=== PATIENT | female | born 1975 | race Caucasian/White ===

== ENCOUNTER → 2017-10-15 07:00 | Outpatient (CLI) | payer OTHER, SELFPAY ==
--- NOTE | 2017-10-15 07:05 | RAD_ITS ---
STUDY: X-RAY CHEST REASON FOR EXAM: Female, 42 years old. Cough TECHNIQUE: Frontal and lateral views of the chest. COMPARISON: None. FINDINGS: The lungs are clear and expanded. There is no demonstrated pleural abnormality. Normal size heart. Normal mediastinum and erica. Normal visualized pulmonary arteries. Normal visualized aortic arch and descending thoracic aorta. Normal visualized thoracic spine. Normal visualized ribs, clavicles, and shoulders. There is no demonstrated abnormality of the visualized soft tissue structures of the upper abdomen. RAD/Chest PA and Lateral IMPRESSION: Normal x-ray examination of the chest. Electronically Signed: Tari Murillo MD at 7:24 EDT Tel , Service support ,
== END ==
PROVIDERS: Family Provider Family Medicine; PCP Family Medicine; Visit Provider Physician Assistant Surgical
DX: R06.02 Shortness of breath (principal); R06.00 Dyspnea, unspecified; R09.89 Other specified symptoms and signs involving the circulatory and respiratory systems
CPT/HCPCS: 71046

== ENCOUNTER → 2017-12-17 14:28 | Outpatient (CLI) | payer OTHER, SELFPAY ==
--- NOTE | 2017-12-17 14:33 | CT_ITS ---
STUDY: CT MAXILLOFACIAL SINUSES REASON FOR EXAM: Female, 42 years old. Vertigo. Headache RADIATION DOSAGE (If Supplied By Facility): CTDIvol = ( 29.38 ) mGy, DLP = ( 532.76 ) mGycm TECHNIQUE: The patient was scanned in a multi detector CT scanner. High resolution axial imaging was performed without the administration of intravenous contrast material. Sagittal and coronal images were reconstructed. Individualized dose optimization techniques were used for this CT. COMPARISON: None. FINDINGS: FRONTAL SINUSES: Normal aeration, without mucosal inflammatory disease. ETHMOIDAL SINUSES: Normal aeration, without mucosal inflammatory disease. MAXILLARY SINUSES: Normal aeration, without mucosal inflammatory disease. SPHENOIDAL SINUSES: Normal aeration, without mucosal inflammatory disease. There is patency of the bilateral maxillary infundibuli with normal uncinate processes, ethmoid bullae, and hiatus semilunaris. Normal bilateral middle turbinates. There is hypertrophy of the bilateral inferior nasal turbinates. There is a right sided nasal septal deviation. The visualized osseous structures are normal. The visualized bilateral orbital contents are normal. There is no middle ear or mastoid opacification. CT/Sinus/Facial Bone IMPRESSION: The paranasal sinuses are clear and patent drainage pathways. Nasal septal deviation. Mucosal hypertrophy of the turbinates narrowing the nasal air passageway. Electronically Signed: Jerad Huston MD at 17:22 EDT , Service support ,
--- NOTE | 2017-12-17 14:33 | CT_ITS ---
STUDY: CT BRAIN WITHOUT CONTRAST REASON FOR EXAM: Female, 42 years old. Vertigo. Headache. RADIATION DOSAGE (If Supplied By Facility): CTDIvol = ( 44.99 ) mGy, DLP = ( 711.75 ) mGycm TECHNIQUE: Transaxial CT imaging of the brain was performed without administration of intravenous contrast material. Individualized dose optimization techniques were used for this CT. COMPARISON: None. FINDINGS: Normal soft tissue structures. Normal calvarium. Normal size ventricles and extra-axial spaces for the patient's age. Normal white matter tracts of the cerebral hemispheres. Normal basal ganglia and thalami. Normal brainstem. Normal cerebellum. There is no intracranial hemorrhage. There are no findings of an acute ischemic infarction. Normal visualized paranasal sinuses. CT/Brain/Head without Contrast IMPRESSION: Normal unenhanced CT scan of the brain. Electronically Signed: Jerad Huston MD at 17:17 EDT , Service support ,
== END ==
PROVIDERS: Family Provider Family Medicine; PCP Family Medicine; Visit Provider Family Medicine
DX: R42 Dizziness and giddiness (principal); H93.19 Tinnitus, unspecified ear
CPT/HCPCS: 70450; 70486

== ENCOUNTER 2018-02-23 09:42 | Emergency (ER) | payer OTHER, SELFPAY ==
[2018-02-23 09:43] VITALS: BP 163/110; PULSE 91; RESP 18; TEMP 36.4; O2SAT 99; BMI 33.5
--- NOTE | 2018-02-23 10:08 | RAD_ITS ---
STUDY: X-RAY - CERVICAL SPINE REASON FOR EXAM: Female, 43 years old. C6-7 RADICULAR PAIN RIGHT. 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 COMPARISON: None FINDINGS: Normal anterior atlantoaxial articulation. Normal odontoid process. Normal cervical lordosis. Normal vertebral bodies and endplates. There is multi-level degenerative disc disease with multilevel disc space narrowing. Normal visualized intervertebral neuroforamina. The soft tissue structures are unremarkable. RAD/Cerv Spine 4 or 5 Views IMPRESSION: There is multi-level degenerative disc disease with multilevel disc space narrowing. Electronically Signed: Tari Murillo MD at 11:48 EDT Tel , Service support ,
--- NOTE | 2018-02-23 10:13 | ED.DCSUM_ITS ---
- ER Visit Summary Date of Service: 02/23/18 Chief Complaint: Right shoulder/scapular pain since December History of Present Illness: The patient is a 43 F who is right-handed presents with right shoulder/scapular pain with radiation to the arm, forearm and fingers. 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 There is no history of direct trauma. She reports weakness. She states the pain was worse yesterday. She took 600 mg ibuprofen ?2 without any effect. She was seen at the [place] urgent care. Note was read. Thought was thoracic myofascial strain. She states the exercises she was told to do have no effect. Patient distribution of pain is in the C6-7 nerve root/dermatome. She denies any cardiac respiratory symptoms. Certain movements exacerbate the discomfort. She denies any neck pain. She denies headache. She denies any visual, ocular auditory symptoms. I trouble speech or swallowing. Physical Examination: Blood pressure is elevated at 163/110. She appears uncomfortable. She states the pain is a 5. Her right upper extremity is abductor to 90? and externally rotated. She states this diminishes her pain. Apparently, having her arm dangle at her side causes increased discomfort. HEENT exam is unremarkable. There is no cervical spine tenderness. Axillary, median, radial and ulnar function intact. Biceps, brachialis and triceps reflex are 2+ and symmetric. Radial pulses 2+ and symmetric. Having her extend at the elbow against resistance causes increased pain. Having her flex at the elbow causes increased pain. There is no decreased strength with shrugging of her shoulders. Test Results: 5 view x-ray of the cervical spine was obtained and interpreted by me. There is degenerative changes noted. There is narrowing at C5-6 C4-5 and question of irregularity C6-7 right foramen. Emergency Department Course and Treatment: IV was established she was medicated with 4 mg of Zofran, 4 mrem of morphine and 30 minutes Toradol IV push. Because the pain radiates in a C6-7 dermatomal distribution x-rays of the C- spine were obtained. Treatment Plan: Patient was reassessed at 1131. Her pain has diminished markedly from a 5 6 to a 1. She is no longer tearful. She was made aware of her x-ray results and treatment plan. She was given a prescription for anti- inflammatory and opiate analgesia. She was referred to Dr. Sigifredo Esquivel her PCP for physical therapy and if no improvement palpable MRI Disposition: Discharged in stable and improved condition Impression: Pain right upper extremity secondary to cervical radiculopathy C6-7 distribution This note was generated with [employer] dictation software. It may contain incorrect words, spelling, and punctuation that were not noted in review of the chart prior to signing ED Disposition - Plan for ED Patient: Disposition: Home or Assisted Living Chief Complaint: Upper Extremity Injury Instructions: ED Cervical Radiculopathy Prescriptions: Oxycodone HCl/Acetaminophen [Percocet 5/325] 1 tablet PO Q6H PRN PRN 5 Days #20 tablet PRN Reason: Radicular pain Naproxen [Naprosyn] 500 mg PO BID PRN #20 tab Referrals: Sigifredo Esquivel MD [Primary Care Provider] - 2 Days
[2018-02-23] MEDS: Morphine 4 MG/ML Syringe IV (10:30)
[2018-02-23] MEDS: Ondansetron 4 MG/2 ML Vial IV (10:30)
[2018-02-23] MEDS: Ketorolac 30 MG/ML Syringe IV (10:30)
[2018-02-23 11:58] VITALS: BP 128/76; PULSE 64; RESP 15
== END 2018-02-23 12:13 | disposition home or self-care (01) ==
PROVIDERS: Emergency Provider Emergency Medicine; Family Provider Family Medicine; PCP Family Medicine
DX: M54.12 Radiculopathy, cervical region (principal); E03.9 Hypothyroidism, unspecified; R03.0 Elevated blood-pressure reading, without diagnosis of hypertension; E66.9 Obesity, unspecified; Z79.899 Other long term (current) drug therapy
CPT/HCPCS: 72050; 96374; 96375; 99283; A4216; J2405

== ENCOUNTER → 2018-03-17 07:20 | Outpatient (CLI) | payer OTHER, SELFPAY ==
[2018-03-17 09:52] LABS: Hemoglobin A1c 5.3 % (4.2-6.3)
[2018-03-17 09:57] LABS: AST(SGOT) 14 U/L (15-37); Alanine Aminotransfer ALT/SGPT 20 U/L (13-56); Albumin, Serum 3.8 g/dL (3.2-5.0); Alkaline Phosphatase 65 U/L (45-117); Anion Gap 5 (5-15); BUN 21 mg/dL (7-18); BUN/Creat Ratio 23.6 RATIO (10-20); Chloride 106 mmol/L (98-107); Cholesterol 143 mg/dL (200); Creatinine, Serum 0.89 mg/dL (0.55-1.02); EST Glomerular Filtration Rate 73 mL/min (>60); Est Glom Filt Rate - Afr Amer 88 mL/min (>60); Glucose 84 mg/dL (74-106); High Density Lipoprotein 56 mg/dL; Potassium 3.8 mmol/L (3.5-5.1); Protein, Total 7.8 g/dL (6.4-8.2); Sodium Level 142 mmol/L (136-145); Thyroid Stim Hormone (TSH) 2.55 uIU/mL (0.358-3.74); Triglycerides 108 mg/dL; Very Low Density Lipoprotein 22 mg/dL (5-40)
== END ==
PROVIDERS: Family Provider Family Medicine; PCP Family Medicine; Visit Provider Family Medicine
DX: M54.12 Radiculopathy, cervical region (principal); Z00.00 Encounter for general adult medical examination without abnormal findings
CPT/HCPCS: 36415; 72141; 80053; 80061; 83036; 84443

== ENCOUNTER 2018-03-26 16:30 | Outpatient (RCR) | payer OTHER, SELFPAY ==
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
--- NOTE | 2018-03-26 17:14 | HP.PTDCSUM_ITS ---
HP - PT D/C Summary It has been my pleasure to treat PAO PANG under orders from Sigifredo Esquivel, for the diagnosis of CERVICALGIA AND CERVICAL RADICULOPATHY. for a total of 10 visit(s). Discharge Date: Please see the following information for a summary of their discharge status. - Subjective Subjective: APPOINTMENT WITH DR. JERSON MACKENZIE. PATIENT REPORTS HER RIGHT ARM PAIN IS A LITTLE BETTER BUT HER HER RIGHT SHOULDER BLADE PAIN IS STILL MODERATE TO SEVERE. UNALBE TO SIT AT WORK TODAY. HAD TO SIT 10 MIN TO WORK AND ABOUT 10 MIN IN THE CAR TO GET TO PT TODAY AND IT STILL CAUSES A LOT OF PAIN. NO SITTING AT WORK TODAY. AVOIDS SITTING AT ALL COSTS. EVEN HAD TO STAND WHEN WENT OUT TO EAT BECAUSE OF THE PAIN INCREASE WITH SITTING. - Pain R arm Pain Intensity (Out of 10): 5 - Overall Improvement % Improvement: 50 - Objective Objective/Function: PATIENT CONTNUES TO HAVE SIGNIFICANT REPORTS OF PAIN IN HER NECK AND RIGHT UE INCLUDING THE SHOULDER BLADE. SHE ALSO HAS SIGNIFICANT DECREASED NECK ROM AND INCREASING RIGHT UE WEAKNESS (EXCEPT CHILD PROTECTIVE INVESTIGATOR) ALONG WITH INABILITY TO TOLERATE SITTING. UPON EXAM: Sitting Posture/Standing Posture: POOR. PATIENT AVOIDS SITTING IN CLINIC. FORWARD HEAD AND ROUNDED SHOULDERS. Other Observations: PATIENT REPORTS ALMOST IMMEDIATE SUBSTANTIAL OR FULL RELIEF FROM PAIN UPON LYING WITH OR WITHOUT TRACTION. Motor deficit: RIGHT HANDED. RIGHT CHILD PROTECTIVE INVESTIGATOR 65 LBS. LEFT 75 LBS. LEFT UE 5/5. RIGHT UE 4/5 WITH MMT'ING AND TESTING FLARES UP RIGHT UE SX'S. Sensory deficit: JOVAN UE LIGHT TOUCH SENSATION INTACT AND SYMMETRICAL. ROM deficit: JOVAN UE'S WFL. Reflexes: JOVAN UE' S 2/3. Dural Signs: POSITIVE RIGHT UE. Cervical Mvmt Loss: Flex: MIN - INCREASES RIGHT SHOULDER BLADE PAIN AND NECK IS TIGHT. Pro: NIL. Ext: MOD TO FAM AND INCREASES RIGHT UE PAIN. Ret: MOD. RSB: MIN. LSB: MIN. R Rot: MIN - PROVOKES RIGHT SHOULDER BLADE PAIN. L Rot: MIN - PROVOKES LEFT SHOULDER BLADE PAIN AND IT IS UNUSUAL FOR PATIENT TO HAVE LEFT SHOULDER BLADE PAIN. Postural strength: POOR. OTHER: PATIENT CONTINUES TO APPEAR TO BE IN A LOT OF PAIN UNLESS SUPINE LYING ESPECIALLY AFTER RIGHT UE STRENGTH TESTING EVEN THOUGH I PROCEEDED CAREULLY. NECK OSWESTRY HAS ONLY DECREASED TO 17 FROM 20. - Goals Goal 1:: DECREASE C/O RIGHT UE PAIN Goal 2:: IMPROVE SITTING, STANDING, WALKING, ADL, WORK AND SLEEP FUNCTION Goal 3:: INSTRUCT IN PROPHYLAXIS - Plan Plan: PATIENT IS APPROPRIATE FOR DISCHARGE DUE CONTINUING SIGNIFICANT SX'S. CONSULT WITH SURGEON (DR. JERSON MACKENZIE) PENDING TOMORROW AND TRIP TO [facility] COMING SOON. - D/C Information If there are questions or concerns regarding this patient's physical therapy, please feel free to call me at [phone]. Thank you for the referral of this patient. Sincerely, Lu Murray
== END 2018-03-26 17:28 | disposition home or self-care (01) ==
LOC: PT 16:30
PROVIDERS: Family Provider Family Medicine; PCP Family Medicine; Visit Provider Family Medicine
DX: M54.2 Cervicalgia (principal); M54.12 Radiculopathy, cervical region
CPT/HCPCS: 97012; 97035; 97110; 97140; 97162; 97164; 97530

== ENCOUNTER → 2018-04-23 08:06 | Outpatient (CLI) | payer OTHER, SELFPAY ==
[2018-04-28 11:10] LABS: HPV Reflexed? NOT INDICATED
== END ==
PROVIDERS: Family Provider Family Medicine; PCP Family Medicine; Visit Provider Obstetrics & Gynecology
DX: Z12.4 Encounter for screening for malignant neoplasm of cervix (principal)
CPT/HCPCS: 88175; G0145

== ENCOUNTER 2018-04-26 19:53 | Emergency (ER) | payer OTHER, SELFPAY ==
[2018-04-26 19:54] VITALS: BP 147/106; PULSE 85; RESP 26; TEMP 36.8; O2SAT 99; BMI 34.3
--- NOTE | 2018-04-26 20:00 | EKG12_ITS ---
Test Reason : CHEST PAIN Blood Pressure : / mmHG Vent. Rate : 076 BPM Atrial Rate : 076 BPM P-R Int : 138 ms QRS Dur : 074 ms QT Int : 384 ms P-R-T Axes : 028 006 013 degrees QTc Int : 432 ms Normal sinus rhythm with sinus arrhythmia Normal ECG Confirmed by NICHOLAS SHARP, CHRISTIANO ([id number]), research editor WAYNE MACKENZIE ([id number]) on 04/30/2018 8:53:18 AM Referred By: Veronica Chan Confirmed By:CHRISTIANO PETERSON MD
--- NOTE | 2018-04-26 20:03 | ED.RN ---
NO OLD EKGS IN MUSE
[2018-04-26 20:10] LABS: Absolute Lymphocyte Count 3.16 X10^3/ul (0.83-4.51); Absolute Neutrophil Count 6.6 X10^3/uL (2.0-7.7); Basophil# 0.03 X10^3/uL; Basophil% 0.3 % (0-1); Eosinophils% 0.9 % (0-5); Hematocrit 40.3 % (37-47); Lymphocyte # 3.16 X10^3/ul (4.0); Lymphocyte % 29.3 % (19-41); Mean Corp Hgb Conc 32.3 g/gl (32-36); Mean Corpuscular Hgb 29.1 pg (27.0-32.0); Mean Corpuscular Volume 90.2 fL (81-99); Mean Platelet Vol. 9.1 fl (6.2-12.0); Monocyte# 0.84 X10^3/uL; Monocyte% 7.8 % (0-10); Neutrophil # 6.64 X10^3/uL (2.7-7.7); Neutrophil % 61.7 % (47-70); POSITIVE COUNT NO; POSITIVE DIFFERENTIAL NO; POSITIVE MORPHOLOGY NO; Platelet Count 228 K/mm3 (150-450); RBC Distribution Width CV 13.5 % (11.6-14.6); RBC Distribution Width SD 44.5 fl (35.1-43.9); Red Blood Count 4.47 M/mm3 (4.2-5.4); White Blood Count 10.8 K/mm3 (4.4-11.0)
--- NOTE | 2018-04-26 20:11 | RAD_ITS ---
STUDY: X-RAY CHEST REASON FOR EXAM: Female, 43 years old. Recent surgery. Now having chest pain and shortness of breath. TECHNIQUE: Single frontal view of the chest. COMPARISON: October 15, 2017 FINDINGS: The lungs are clear and expanded. There is no demonstrated pleural abnormality. Normal size heart. Normal mediastinum and erica. Normal visualized pulmonary arteries. Normal visualized aortic arch and descending thoracic aorta. Normal visualized thoracic spine. Normal visualized ribs, clavicles, and shoulders. Post surgical changes of the lower cervical spine are noted. RAD/Chest 1 View (Portable) IMPRESSION: No significant interval change and no acute pathology. Electronically Signed: Speedy Hdez MD at 20:32 EDT , Service support ,
[2018-04-26 20:27] LABS: Anion Gap 7 (5-15); BUN 20 mg/dL (7-18); BUN/Creat Ratio 20.8 RATIO (10-20); Calcium,Total 8.8 mg/dL (8.5-10.1); Chloride 102 mmol/L (98-107); Creatinine, Serum 0.96 mg/dL (0.55-1.02); EST Glomerular Filtration Rate 67 mL/min (>60); Est Glom Filt Rate - Afr Amer 81 mL/min (>60); Glucose 114 mg/dL (74-106); Potassium 3.5 mmol/L (3.5-5.1); Sodium Level 139 mmol/L (136-145)
[2018-04-26 20:38] LABS: D-Dimer Quantitative (DVT/PE) 6.28 FEU/ug/m (0.27-0.49)
--- NOTE | 2018-04-26 20:38 | ED.RN ---
D-DIMER 6.28 DR NOTIFIED
[2018-04-26 21:00] VITALS: BP 131/83; PULSE 75; RESP 17; O2SAT 96
--- NOTE | 2018-04-26 21:38 | CT_ITS ---
STUDY: CTA CHEST REASON FOR EXAM: Female, 43 years old. Chest pain and shortness of breath following neck surgery. RADIATION DOSAGE (If Supplied By Facility): CTDIvol = ( 14.59 ) mGy, DLP = ( 649.58 ) mGycm TECHNIQUE: The examination was performed with the intravenous administration of 100 ml of Isovue 370 contrast material. Post-processing of the angiographic images was performed, with multiplanar reformation and 3D reconstruction. Individualized dose optimization techniques were used for this CT. COMPARISON: Portable chest x-ray of April 26, 2018 FINDINGS: 80 Positive for 1 moderately small pulmonary embolus in a segmental branch to the anterior right upper lobe extending into 2 subsegmental branches. 1 moderate sized peripheral pulmonary embolus in a segmental branch of the superior segment of the right lower lobe extending into subsegmental branches. Normal thoracic aorta and visualized great vessels. There is no demonstrated aortic dissection. Normal heart and pericardium. Normal mediastinum. Normal hilar regions. Normal visualized trachea and bronchi. Moderate bibasilar atelectatic changes. Negative for pleural effusion. Normal chest wall structures. There are degenerative changes of thoracic spine. Normal visualized upper abdomen. CT/CTA Chest W/WO Contrast IMPRESSION: 2 moderate size peripheral pulmonary emboli in a segmental and subsegmental branches of the anterior right upper lobe and the superior segment right lower lobe. Mild elongation of the thoracic aorta without aneurysm or dissection. Negative for coronary calcifications. Mild to moderate bibasilar linear type atelectatic changes. N.B. : The above information has been verbally conveyed by Jasmine Frederick MD to Benjamin Rodriguez MD, on 04/26/2018 23:15:52 (ET). Electronically Signed: Jasmine Frederick MD at 23:10 EDT , Service support ,
[2018-04-26 22:28] VITALS: BP 136/89; PULSE 68; RESP 17; O2SAT 97
[2018-04-26 23:26] VITALS: BP 125/85; PULSE 60; RESP 15; O2SAT 96
--- NOTE | 2018-04-26 23:58 | ED.VISSUMM ---
- ER Visit Summary Date of Service: 04/26/18 Chief Complaint: Chest pain shortness of breath History of Present Illness: The patient is a 43 F who had surgery 3 days ago, C6-C7 fusion. She is presenting with calf pain bilaterally as well as chest pain and shortness of breath. No fever chills no cough. Physical Examination: Not appear in acute distress. Moist mucous membranes, no obvious facial deformity Patient has a neck collar and wound is bandaged, did not unwrap it. Regular rate and rhythm without any obvious murmurs Clear lungs bilaterally speaking in full sentences without any obvious respiratory distress Abdomen soft and nontender no guarding or rebound Moves all extremities without any difficulty or pain. She has calf pain but no edema Skin does not show any obvious rashes or lesions, no trauma. Alert oriented ?3 with no gross focal deficit Emergency Department Course and Treatment: Patient was found to have pulmonary emboli, this was peripheral, 2 small emboli. Patient has a normal heart rate, she has no medical problems. She is low risk for adverse side effects and meets criteria for outpatient treatment for PE. I gave her Eliquis in the emergency department and I will give her a 30 day trial for home as well as some prescription and she will follow-up with her PCP. He understands that if her symptoms worsen, she needs to return to the emergency department. Disposition: Discharge in stable condition Impression: Pulmonary emboli This note was generated with [employer] dictation software. It may contain incorrect words, spelling, and punctuation that were not noted in review of the chart prior to signing ED Disposition - Plan for ED Patient: Disposition: Home or Assisted Living Chief Complaint: Chest Pain Instructions: Pulmonary Embolism, Discharge Instructions for Pulmonary Embolism Prescriptions: Apixaban [Eliquis] 5 mg PO BID #60 tab Referrals: Sigifredo Esquivel MD [Primary Care Provider] - 3-5 Days
--- NOTE | 2018-04-27 00:03 | ED.DCSUM_ITS ---
- ER Visit Summary Date of Service: 04/26/18 Chief Complaint: Chest pain shortness of breath History of Present Illness: The patient is a 43 F who had surgery 3 days ago, C6 -C7 fusion. She is presenting with calf pain bilaterally as well as chest pain and shortness of breath. No fever chills no cough. Physical Examination: Not appear in acute distress. Moist mucous membranes, no obvious facial deformity Patient has a neck collar and wound is bandaged, did not unwrap it. Regular rate and rhythm without any obvious murmurs Clear lungs bilaterally speaking in full sentences without any obvious respiratory distress Abdomen soft and nontender no guarding or rebound Moves all extremities without any difficulty or pain. She has calf pain but no edema Skin does not show any obvious rashes or lesions, no trauma. Alert oriented ?3 with no gross focal deficit Emergency Department Course and Treatment: Patient was found to have pulmonary emboli, this was peripheral, 2 small emboli. Patient has a normal heart rate, she has no medical problems. She is low risk for adverse side effects and meets criteria for outpatient treatment for PE. I gave her Eliquis in the emergency department and I will give her a 30 day trial for home as well as some prescription and she will follow-up with her PCP. He understands that if her symptoms worsen, she needs to return to the emergency department. Disposition: Discharge in stable condition Impression: Pulmonary emboli This note was generated with [employer] dictation software. It may contain incorrect words, spelling, and punctuation that were not noted in review of the chart prior to signing ED Disposition - Plan for ED Patient: Disposition: Home or Assisted Living Chief Complaint: Chest Pain Instructions: Pulmonary Embolism, Discharge Instructions for Pulmonary Embolism Prescriptions: Apixaban [Eliquis] 5 mg PO BID #60 tab Referrals: Sigifredo Esquivel MD [Primary Care Provider] - 3-5 Days
[2018-04-27] MEDS: APIXABAN 5 MG TABLET PO (00:15)
[2018-04-27 00:23] VITALS: BP 130/85; PULSE 67; RESP 16; O2SAT 96
== END 2018-04-27 00:24 | disposition home or self-care (01) ==
PROVIDERS: Emergency Provider Emergency Medicine; Family Provider Family Medicine; PCP Family Medicine
DX: I26.99 Other pulmonary embolism without acute cor pulmonale (principal); M79.662 Pain in left lower leg; M79.661 Pain in right lower leg; Z79.01 Long term (current) use of anticoagulants; Z79.899 Other long term (current) drug therapy
CPT/HCPCS: 71045; 71275; 80048; 84484; 85025; 85379; 85610; 93005; 99285; Q9967; A4216

== ENCOUNTER 2018-04-27 16:11 | Emergency (ER) | payer OTHER, SELFPAY ==
[2018-04-27 16:12] VITALS: BP 131/92; PULSE 90; RESP 20; TEMP 36.6; O2SAT 98; BMI 34.3
--- NOTE | 2018-04-27 16:32 | EKG12_ITS ---
Test Reason : CHEST PAIN Blood Pressure : / mmHG Vent. Rate : 084 BPM Atrial Rate : 084 BPM P-R Int : 136 ms QRS Dur : 074 ms QT Int : 372 ms P-R-T Axes : 046 017 023 degrees QTc Int : 439 ms Normal sinus rhythm Normal ECG Confirmed by NICHOLAS SHARP, CHRISTIANO ([id number]), newspaper managing editor WAYNE MACKENZIE ([id number]) on 05/02/2018 1:28:05 PM Referred By: Veronica Chan Confirmed By:CHRISTIANO PETERSON MD
[2018-04-27 16:53] LABS: Absolute Lymphocyte Count 1.98 X10^3/ul (0.83-4.51); Absolute Neutrophil Count 8.9 X10^3/uL (2.0-7.7); Basophil# 0.03 X10^3/uL; Basophil% 0.3 % (0-1); Eosinophil# 0.13 X10^3/uL; Eosinophils% 1.1 % (0-5); Hematocrit 42.7 % (37-47); Hemoglobin 13.9 g/dl (12.0-15.0); Lymphocyte # 1.98 X10^3/ul (4.0); Lymphocyte % 16.7 % (19-41); Mean Corp Hgb Conc 32.6 g/gl (32-36); Mean Corpuscular Hgb 29.2 pg (27.0-32.0); Mean Corpuscular Volume 89.7 fL (81-99); Mean Platelet Vol. 9.3 fl (6.2-12.0); Monocyte# 0.84 X10^3/uL; Monocyte% 7.1 % (0-10); Neutrophil # 8.88 X10^3/uL (2.7-7.7); Neutrophil % 74.5 % (47-70); POSITIVE COUNT NO; POSITIVE DIFFERENTIAL NO; POSITIVE MORPHOLOGY NO; Platelet Count 229 K/mm3 (150-450); RBC Distribution Width CV 13.4 % (11.6-14.6); RBC Distribution Width SD 44.1 fl (35.1-43.9); Red Blood Count 4.76 M/mm3 (4.2-5.4); White Blood Count 11.9 K/mm3 (4.4-11.0)
[2018-04-27 16:56] VITALS: O2SAT 96
[2018-04-27 16:58] LABS: International Normalized Ratio 1.1; Prothrombin Time (Protime)PT. 13.8 SECONDS (11.7-14.9)
--- NOTE | 2018-04-27 17:00 | RAD_ITS ---
STUDY: X-RAY CHEST REASON FOR EXAM: Female, 43 years old. Chest pain TECHNIQUE: Frontal view of the chest COMPARISON: 04/26/2018 FINDINGS: The lungs are clear. There are no pleural effusions. There is no pneumothorax. The heart is normal in size. The visualized osseous structures are within normal limits. RAD/Chest 1 View (Portable) IMPRESSION: No acute thoracic pathology. Electronically Signed: Aayn Riddle, at 17:47 EDT Tel , Service support ,
--- NOTE | 2018-04-27 17:06 | ED.RN ---
PT URINE KETONES 150. DR. LOCO GOVEA.
[2018-04-27 17:11] VITALS: BP 123/80; PULSE 85; RESP 20; O2SAT 97
[2018-04-27 17:12] LABS: Anion Gap 7 (5-15); BUN 17 mg/dL (7-18); BUN/Creat Ratio 16.8 RATIO (10-20); Calcium,Total 9.2 mg/dL (8.5-10.1); Chloride 100 mmol/L (98-107); Creatinine, Serum 1.01 mg/dL (0.55-1.02); EST Glomerular Filtration Rate 63 mL/min (>60); Est Glom Filt Rate - Afr Amer 76 mL/min (>60); Estimated Creatinine Clearance 60.74 ml/min; Glucose 98 mg/dL (74-106); Sodium Level 137 mmol/L (136-145)
--- NOTE | 2018-04-27 17:45 | NURSING ---
CALLED [facility] FOR TRANSFER. HAD TO LEAVE A MESSAGE
--- NOTE | 2018-04-27 17:53 | NURSING ---
AMANDA FORBES, CALLED BACK
[2018-04-27] MEDS: Morphine 4 MG/ML Syringe IV ×2 (17:54→18:37)
[2018-04-27] MEDS: Ondansetron 4 MG/2 ML Vial IV (17:55)
[2018-04-27 18:00] VITALS: BP 131/87; PULSE 76; RESP 18; O2SAT 98
--- NOTE | 2018-04-27 18:19 | NURSING ---
DR ROGERS FOR DR LOPEZ
--- NOTE | 2018-04-27 18:25 | ED.VISSUMM ---
- ER Visit Summary Date of Service: 04/27/18 Chief Complaint: Chest pain History of Present Illness: The patient is a 43 F who presents with chest pain. This is been present for 2 days. She had a cervical fusion on April 23 at [facility]. She was seen last night for left-sided chest pain and bilateral calf pain and was diagnosed with peripheral pulmonary emboli. She was felt to be a good candidate for outpatient treatment and started on Eliquis. Over the last 12 hours she complains of worsening pain worsening short of breath. She currently rates her pain as severe in the left side of the chest. Physical Examination: Afebrile vitals are stable Moist mucous membranes Heart regular rate and rhythm Lungs are clear Abdomen soft Bilateral calf tenderness but no edema no erythema she has palpable dorsalis pedis pulses brisk capillary refill and sensation is intact to light touch Test Results: EKG shows sinus rhythm at a rate of 84. Labs are notable for white blood cell count of 11.9. INR normal. Troponin negative. Chest x-ray shows no acute process. Emergency Department Course and Treatment: Patient was treated with morphine and Zofran for symptomatic control. Given worsening symptoms I do feel she should be admitted. Given her recent cervical surgery I spoke to [facility] who accepted the patient for transfer. Treatment Plan: [] Disposition: Transfer Impression: Pulmonary embolism This note was generated with Flipzu dictation software. It may contain incorrect words, spelling, and punctuation that were not noted in review of the chart prior to signing ED Disposition - Plan for ED Patient: Chief Complaint: Chest Pain Referrals: Sigifredo Esquivel MD [Primary Care Provider] -
[2018-04-27] MEDS: APIXABAN 5 MG TABLET 10 MG PO (18:38)
[2018-04-27 18:51] VITALS: BP 134/77; PULSE 72; RESP 12; O2SAT 97
--- NOTE | 2018-04-27 19:15 | ED.RN ---
pain medication given at 1754, five minutes later patients spouse calls out stating pain medication made her pain worse, 07/14. Pt moaning and grasping left side. HR 73 resp 15 spo2 98% RA at the time. Pt and spouse educated on morphine and the time it takes to take effect. Dr Rodas notified, no new orders received. Pt called out 3 more times within 15 minutes, Dr Rodas was notified of each. New order for additional pain medications received. Second dose of morphine given at 1837, spouse called out 3 minutes later stating this pain medication is doing nothing for her pain. Reminded to give pain medication time to fully take effect. Pt not satisfied with that answer. Dr Rodas notified again. No new orders. Spouse walked out of room and up to another nurse stating Where is Jacob she is suppose to be taking care of my wifes pain? I went to bedside to explain that i notified Dr Rodas, he did not put in any more orders for mediations. Pt being transferred to [facility], transport at bedside.
== END 2018-04-27 19:28 | disposition short-term general hospital (02) ==
LOC: ED 18:01
PROVIDERS: Emergency Provider Emergency Medicine; Family Provider Family Medicine; PCP Family Medicine
DX: I26.99 Other pulmonary embolism without acute cor pulmonale (principal); M79.662 Pain in left lower leg; M79.661 Pain in right lower leg; Z79.01 Long term (current) use of anticoagulants; Z79.899 Other long term (current) drug therapy
CPT/HCPCS: 71045; 80048; 84484; 85025; 85610; 93005; 96374; 96375; 96376; 99285; J7030; A4216; J2405

== ENCOUNTER → 2018-05-16 08:42 | Outpatient (CLI) | payer OTHER, SELFPAY ==
--- NOTE | 2018-05-16 09:02 | BI_ITS ---
MAMMOGRAPHY - BILATERAL SCREENING REASON FOR EXAM: Female, 43 years old. Routine annual screening examination. PERTINENT HISTORY: Non-contributory. TECHNIQUE: Digital bilateral breast franky (3D mammographic acquisition) in the CC and MLO projections. 2-D mediolateral oblique (MLO) and craniocaudad (CC) views of both breasts were obtained. CAD: Full Field Digital Mammography with Computer Added Detection was performed. COMPARISON: Comparison is made with prior study dated genera 24/03/2017 and April 05, 2015. FINDINGS: Breast Composition: The breasts are almost entirely fatty. There are no dominant masses or suspicious calcifications. No other significant abnormalities are identified. There has been no significant change since the prior study. BI/SCREENING MAMM (CAD), BILAT IMPRESSION: Stable bilateral screening mammogram. Yearly follow-up mammogram recommended. (A) ASSESSMENT CATEGORY: BIRADS Category 1: Negative. A letter regarding these results will be sent to the patient by the facility within 30 days. Approximately 10% of breast cancers are not detected by mammography. A normal mammogram should not delay biopsy of a clinically suspicious abnormality. [id number] Electronically Signed: Oliver Oneil MD at 13:16 EDT Tel [phone], Service support ,
== END ==
PROVIDERS: Family Provider Family Medicine; PCP Family Medicine; Referring Provider Obstetrics & Gynecology; Visit Provider Obstetrics & Gynecology
DX: Z12.31 Encounter for screening mammogram for malignant neoplasm of breast (principal)
CPT/HCPCS: 77063; 77067

== ENCOUNTER 2018-06-16 12:00 | Outpatient (RCR) | payer OTHER, SELFPAY ==
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
--- NOTE | 2018-06-16 12:25 | HP.PTDCSUM ---
HP - PT D/C Summary It has been my pleasure to treat PAO PANG under orders from Trent Potter DO, for the diagnosis of S/P CERVICAL SPINAL FUSION for a total of 10 visit(s). Discharge Date: 06/16/18 Please see the following information for a summary of their discharge status. - Subjective Subjective: PATIENT REPORTS SHE IS GLAD SHE CAME TO PT AND SHE HAS LEARNED A LOT. PATIENT REPORTS SHE IS STILL CAREFUL TURNING HER HEAD TO THE LEFT BECAUSE SHE GETS A LITTLE BIT OF PAIN. - Pain JOVAN NECK Pain Intensity (Out of 10): 0 INCISIONAL PAIN Pain Intensity (Out of 10): 0 - Overall Improvement % Improvement: 95 - Objective Objective/Function: ALL GOALS MET. JOVAN UE ROM AND STRENGTH WFL AND TESTING DOES NOT PROVOKE PAIN. RIGHT STATION SUPERVISOR STRENGTH AT LEAST 70 LBS AND LEFT 65 LBS. CERVICAL MVMT LOSS: FLEX - MIN, EXT - MOD, RET - MOD, PRO - NIL, JOVAN ROT - MIN, JOVAN SB - MIN. PATIENT REPORTS TIGHTNESS BUT NOT PAIN WITH TESTING TODAY. - Goals Goal 1:: IMPROVE FUNCTIONAL ROM OF C-SPINE Goal Progress: Goal Met Goal 2:: INCREASE FUNCTIONAL ROM OF JOVAN SHOULDERS Goal Progress: Goal Met Goal 3:: INCREASE FUNCTIONAL STRENGTH OF JOVAN UE'S Goal Progress: Goal Met Goal 4:: IMPROVE LIFTING, SLEEP, WORK AND RECREATIONAL FUNCTION WITHIN ANY LIMITS GIVEN BY DR. POTTER Goal Progress: Goal Met Goal 5:: INDEP HEP Goal Progress: Goal Met - Plan Plan: D/C TO HEP - D/C Information Discharge Comments: PATIENT AGREEABLE TO DISCHARGE. If there are questions or concerns regarding this patient's physical therapy, please feel free to call me at [phone]. Thank you for the referral of this patient. Sincerely, Lu Murray
== END 2018-06-16 19:00 | disposition home or self-care (01) ==
LOC: PT 12:00
PROVIDERS: Family Provider Family Medicine; PCP Family Medicine; Referring Provider Orthopaedic Surgery; Visit Provider Orthopaedic Surgery
DX: Z98.1 Arthrodesis status (principal)
CPT/HCPCS: 97110; 97162; 97530

== ENCOUNTER 2018-07-23 16:15 | Outpatient (RCR) | payer OTHER, SELFPAY ==
--- NOTE | 2017-10-01 14:16 | MASS.EVAL ---
Massage Therapy Evaluation: Initital Evaluation: Date: 09/30/17 Pt. Name: Piedad Cunningham : 71 V# [id number] Subjective: Piedad Cunningham is a 42 yr old female whose current occupation is a [employer] and was referred to [facility] facility for a Massotherapy evaluation by Dr. Esquivel with the diagnosis of cervicalgia. She presents today with symptoms of muscle tightness in shoulders and neck along with a headache. She reports that the pain level is a 9/10 on the pain scale with a migraine. The symptoms have been a duration of 2x a week. 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 Overall, the patients health is in good condition. The patient is currently taking synthroid as a medication. Objective: Upon examination, the patients muscle tissue was very hard and no fascia movement. The first treatment consisted of a upper body deep tissue massage. I focused on suboccipitals, C 3-4 paraspinals, upper trapezium, levator, scalenes, and rhomboids. Trigger point therapy and neck stretches were performed. Assessment: Muscle tension was very high. The most tenderness places were the right suboccipitals, and right C3-4 referred as a her headaches and pain that she gets in her neck. There was a moderate release overall. I feel that Piedad is a great candidate for massotherapy at this time. Plan: T he plan of care was reviewed with the patient. The patient is to be seen on a regular basis, starting off as once a week for two weeks for one hour sessions of massotherapy.
--- NOTE | 2017-10-01 14:26 | MASS.EVAL_ITS ---
Massage Therapy Evaluation: Initital Evaluation: Date: 09/30/17 Pt. Name: Piedad Cunningham : 71 V# [id number] Subjective: Piedad Cunningham is a 42 yr old female whose current occupation is a [employer] and was referred to [facility] facility for a Massotherapy evaluation by Dr. Esquivel with the diagnosis of cervicalgia. She presents today with symptoms of muscle tightness in shoulders and neck along with a headache. She reports that the pain level is a 9/10 on the pain scale with a migraine. The symptoms have been a duration of 2x a week. 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 Overall, the patients health is in good condition. The patient is currently taking synthroid as a medication. Objective: Upon examination, the patients muscle tissue was very hard and no fascia movement. The first treatment consisted of a upper body deep tissue massage. I focused on suboccipitals, C 3-4 paraspinals, upper trapezium, levator , scalenes, and rhomboids. Trigger point therapy and neck stretches were performed. Assessment: Muscle tension was very high. The most tenderness places were the right suboccipitals, and right C3-4 referred as a her headaches and pain that she gets in her neck. There was a moderate release overall. I feel that Piedad is a great candidate for massotherapy at this time. Plan: T he plan of care was reviewed with the patient. The patient is to be seen on a regular basis, starting off as once a week for two weeks for one hour sessions of massotherapy.
--- NOTE | 2018-01-06 13:30 | DT_ITS ---
This patient was seen during an EMR downtime January 06, 2018 - January 13, 2018. This patient may have a combination of paper and electronic documentation or all paper documentation. All documentation is viewable within the e-chart portion of [facility]ineering for each patient visit.
--- NOTE | 2018-07-25 15:27 | MASS.DISCH ---
Massage Therapy Discharge Summary: Discharge Date: 07/25/2018 Piedad was seen for a massotherapy evaluation on 09/30/2017 with the diagnosis of cervicalgia and migraines. Shee was treated with five sessions of massage therapy consisting of moderate pressure soft tissue techniques, myofascial release and trigger point compression to her cervical, thoracic, lower back, and upper extremities. Piedad responded well to the therapy by reporting decreased tension and pain throughout her neck, shoulders, and back. She did have neck surgery in the middle of treatments. Her goals for therapy were met throughout the treatment sessions. At this time this patient is being discharged from our care at [facility] facility.
--- NOTE | 2018-07-25 15:32 | DS.PCM_ITS ---
Massage Therapy Discharge Summary: Discharge Date: 07/25/2018 iPedad was seen for a massotherapy evaluation on 09/30/2017 with the diagnosis of cervicalgia and migraines. Shee was treated with five sessions of massage therapy consisting of moderate pressure soft tissue techniques, myofascial release and trigger point compression to her cervical, thoracic, lower back, and upper extremities. Piedad responded well to the therapy by reporting decreased tension and pain throughout her neck, shoulders, and back. She did have neck surgery in the middle of treatments. Her goals for therapy were met throughout the treatment sessions. At this time this patient is being discharged from our care at [facility] facility.
== END 2018-07-23 19:00 | disposition home or self-care (01) ==
LOC: MASS 16:15
PROVIDERS: Family Provider Family Medicine; PCP Family Medicine; Visit Provider Family Medicine
DX: M54.2 Cervicalgia (principal); G43.909 Migraine, unspecified, not intractable, without status migrainosus
CPT/HCPCS: 97124

== ENCOUNTER 2018-10-14 06:50 | Emergency (ER) | payer OTHER, SELFPAY ==
[2018-10-14 06:51] VITALS: BP 180/118; PULSE 98; RESP 16; TEMP 36.6; O2SAT 100; BMI 38.8
--- NOTE | 2018-10-14 07:20 | ED.VISSUMM ---
- ER Visit Summary Date of Service: 10/14/18 Chief Complaint: Left eye injury History of Present Illness: The patient is a 43 F presents to the emergency department with left eye injury. Patient states that she was drilling wood her parents basement last evening. States that a particle hit her in the eye. She states she flushed her eye twice, but is still having pain. She denies any visual change. She does not wear glasses or contacts. Her tetanus is up-to-date. She is otherwise been in her normal state of health. Physical Examination: Exam relatively unremarkable. Slit-lamp examination was done with tetracaine instilled. The patient does have diffuse injection of the left lateral area. There is no chemosis. There is no hemorrhage. There is no hypopyon or hyphema. Corneal abrasion was visualized approximately 3 mm x 2 mm at the 3 o'clock position. There is no Carlos sign. Anterior chamber is deep and quiet. The lids were swept and there was no evidence of foreign body. Test Results: [] Emergency Department Course and Treatment: Patient has a corneal abrasion after injury. She will be placed on erythromycin ointment edema short course of analgesics. I did funeral prearrangement counselor her on the importance of following up with ophthalmology to ensure that she is healing appropriately. She is comfortable with this plan of care. She will be discharged home. Treatment Plan: [] Disposition: Discharge Impression: Left eye corneal abrasion This note was generated with [employer] dictation software. It may contain incorrect words, spelling, and punctuation that were not noted in review of the chart prior to signing ED Disposition - Plan for ED Patient: Instructions: ED Eye Injury Corneal Abrasion Prescriptions: Hydrocodone Bitart/Apap 5-325 [[place] 5MG-325MG] 1 tab PO Q6H PRN PRN 3 Days #10 tab PRN Reason: Pain Erythromycin Ophthalmic 1 applic LEFT EYE TID #1 opth.tube Referrals: Nidhi Izquierdo MD [STAFF PHYSICIAN] - 2 Days for wound check
--- NOTE | 2018-10-14 07:23 | ED.DCSUM_ITS ---
- ER Visit Summary Date of Service: 10/14/18 Chief Complaint: Left eye injury History of Present Illness: The patient is a 43 F presents to the emergency department with left eye injury. Patient states that she was drilling wood her parents basement last evening. States that a particle hit her in the eye. She states she flushed her eye twice, but is still having pain. She denies any visual change. She does not wear glasses or contacts. Her tetanus is up-to-date. She is otherwise been in her normal state of health. Physical Examination: Exam relatively unremarkable. Slit-lamp examination was done with tetracaine instilled. The patient does have diffuse injection of the left lateral area. There is no chemosis. There is no hemorrhage. There is no hypopyon or hyphema. Corneal abrasion was visualized approximately 3 mm x 2 mm at the 3 o'clock position. There is no Carlos sign. Anterior chamber is deep and quiet. The lids were swept and there was no evidence of foreign body. Test Results: [] Emergency Department Course and Treatment: Patient has a corneal abrasion after injury. She will be placed on erythromycin ointment edema short course of analgesics. I did beauty counselor her on the importance of following up with ophthalmology to ensure that she is healing appropriately. She is comfortable with this plan of care. She will be discharged home. Treatment Plan: [] Disposition: Discharge Impression: Left eye corneal abrasion This note was generated with [employer] dictation software. It may contain incorrect words, spelling, and punctuation that were not noted in review of the chart prior to signing ED Disposition - Plan for ED Patient: Instructions: ED Eye Injury Corneal Abrasion Prescriptions: Hydrocodone Bitart/Apap 5-325 [[place] 5MG-325MG] 1 tab PO Q6H PRN PRN 3 Days #10 tab PRN Reason: Pain Erythromycin Ophthalmic 1 applic LEFT EYE TID #1 opth.tube Referrals: Nidhi Izquierdo MD [STAFF PHYSICIAN] - 2 Days for wound check
== END 2018-10-14 07:37 | disposition home or self-care (01) ==
LOC: ED 07:22
PROVIDERS: Emergency Provider Emergency Medicine; Family Provider Family Medicine; PCP Family Medicine
DX: S05.02XA Injury of conjunctiva and corneal abrasion without foreign body, left eye, initial encounter (principal); X58.XXXA Exposure to other specified factors, initial encounter; Y93.9 Activity, unspecified; Y92.9 Unspecified place or not applicable; Y99.9 Unspecified external cause status; Z79.01 Long term (current) use of anticoagulants; Z79.899 Other long term (current) drug therapy
CPT/HCPCS: 99284; A4216

== ENCOUNTER → 2019-03-18 08:38 | Outpatient (CLI) | payer OTHER, SELFPAY ==
[2019-03-18 10:51] LABS: T4 Free Direct 1.34 ng/dL (0.76-1.46); Thyroid Stim Hormone (TSH) 1.78 uIU/mL (0.358-3.74)
== END ==
PROVIDERS: Family Provider Family Medicine; PCP Family Medicine; Referring Provider Family Medicine; Visit Provider Family Medicine
DX: E03.9 Hypothyroidism, unspecified (principal)
CPT/HCPCS: 36415; 84439; 84443

== ENCOUNTER → 2019-05-15 14:17 | Outpatient (CLI) | payer OTHER, SELFPAY | PROVIDERS: Visit Provider Obstetrics & Gynecology | DX: Z12.4 Encounter for screening for malignant neoplasm of cervix (principal) ==

== ENCOUNTER 2019-06-01 06:51 | Outpatient (RCR) | payer OTHER, SELFPAY ==
--- NOTE | 2019-06-01 07:47 | HP.PTEVAL ---
Patient's Visit Information PAO PANG is a 44 year old F referred to Physical Therapy by Sigifredo Esquivel MD with a diagnosis of R plantarfasiitis.. Date of Evaluation: 06/01/19 Physical Therapist: Sigifredo Prado DPT, OCS, CSCS - Visit Plan Frequency: 2-3x /Week Duration: 4-6 Weeks Plan: Pt to see foot doctor on adn willc all after that visit. my recommendation would be 2-3x/week for 4-6 weeks for ortho boot, gentle stretching, ionto with dex, STM to plantar fascia adn posterior ankle complex and ankle/foot strengthening, activitiy mdoification and consider orthotics. Appropriate at this point to hold and consider foot doctors treatment plan before initiating. Pt to [facility] foot doctor visit on 06/04. Would need order for dex to do ionto treatment. - Subjective Findings: End February ran up to her garage adn felt pop in bottom of right foot. Painful since in bottom of right foot. Constant, worse getting out of chair and geting out of bed is the worst part of the day. Worse if on it all day. Pain is in arch and on heel plantar. Pain is 8/10 in am to 4/10 when on it . Hurts even not on it. Sleep is OK. She avoids exercise because of the pain. Does all of her own home basics but Painful and slow. Icing 3x/day adn stretching ons teps and uses back massager on it and those things hurt but help after 15 minutes or so. Butchered 27 chickens and needed ibuprofen that night. 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 Not improving overall. Bought arch supports Dr. Suarez but did not help. - Pain right heel Pain Intensity (Out of 10): 4 Pain Intensity Range: 4, 10 - Objective Walks I up on R forefoot unwilling to bear weight through R heel. Antalgic for this reason. Walks, transfers I. AROM hips and knees symmetrical and WFL. Tender to touch R plantar surface of calcaneus with slight but obvious swelling apparent. Max tender to touch. Ankle aROM R DF 0 and L DF 3 degrees, PF normal and symmetrical as is inv and eversion with slight pulling with inv on R. no tenderness in lateral ankle tissue or tibial tendons. Metatarsals move well and symmetrical with foot without pain, Big toes AROM WNL and symmetrical. - Goals Goal 1:: Walk without gait deviations or increased pain home distances Goal Time Frame: 4-6 Weeks Goal 2:: Patient feel 75% better in pain and condition Goal Time Frame: 4-6 Weeks Goal 3:: I appropr HEP to minimze future problems Goal Time Frame: 4-6 Weeks - Rehabilitation Potential Physical Therapy Diagnosis: R plantarfasciitis vs tear(due to pop being heard and lack of healing) Rehabilitation Potential: Questionable - Anticipated Interventions Patient/Client Instruction: Educate patient on: Condition, Plan of Care For the Purpose of:: To decrease pain, To increase ROM, To improve muscle performance and motor function, To improve ability of physical actions for home/community/work/leisure, To improve gait and locomotor functions Therapeutic Exercise to Include: Strength training, Flexibilty training, Gait and locomotor training, Passive ROM, Active ROM For the Purpose of:: To decrease pain, To improve nutrient delivery to tissue, To improve muscle performance and motor function, To improve ability to perform ADL's, To improve ability of physical actions for home/community/work/leisure Manual Therapy Techniques to Include: Soft tissue mobilization For the Purpose of:: To decrease pain, To increase ROM, To improve ability of physical actions for home/community/work/leisure Iontophoresis (with Dexamethozone, with Acetic acid): Yes Cryotherapy (ice pack, ice massage): Yes For the Purpose of:: To decrease swelling/inflammation Thank you for the opportunity to evaluate your patient. For Medicare and Medicare HMO plans, please review the plan of care and approve it. It will need to be FAXED BACK to us at [phone] for Medicare purposes. For Medicare only, by signing this I certify the plan of care. Please let me know if there are questions or concerns regarding this plan of care. Physician Signature: Date:
--- NOTE | 2019-07-09 16:46 | HP.PTDCNRP_ITS ---
HP - Discharge Summary (1) - Patient Information PAO PANG was seen in my office for initial evaluation on 06/01/19. The following Plan of Care was established for this patient: Initial Frequency: 2-3x /Week Initial Duration: 4-6 Weeks - Anticipated Interventions Patient/Client Instruction: Educate patient on: Condition, Plan of Care For the Purpose of:: To decrease pain, To increase ROM, To improve muscle perf ormance and motor function, To improve ability of physical actions for home/community/work/leisure, To improve gait and locomotor functions Therapeutic Exercise to Include: Strength training, Flexibilty training, Gait and locomotor training, Passive ROM, Active ROM For the Purpose of:: To decrease pain, To improve nutrient delivery to tissue, To improve muscle performance and motor function, To improve ability to perform ADL's, To improve ability of physical actions for home/community/work/leisure Manual Therapy Techniques to Include: Soft tissue mobilization For the Purpose of:: To decrease pain, To increase ROM, To improve ability of physical actions for home/community/work/leisure Iontophoresis (with Dexamethozone, with Acetic acid): Yes Cryotherapy (ice pack, ice massage): Yes For the Purpose of:: To decrease swelling/inflammation This patient was last seen in our office 06/01/19. Pertinent comments regarding their Physical therapy will appear below: Pt was evaluated adn POC established. She called back to state that foot doctor had put her in a boot and no therapy at this time. Will discontinue. At this point I will be discontinuing this patient from physical therapy. I would be happy to see this patient again in the future if found appropriate by the physician. Thank you! Sigifredo Prado, DPT, OCS, CSCS
== END 2019-06-01 19:00 | disposition home or self-care (01) ==
LOC: PT 06:51
PROVIDERS: Family Provider Family Medicine; PCP Family Medicine; Referring Provider Family Medicine; Visit Provider Family Medicine
DX: M72.2 Plantar fascial fibromatosis (principal)
CPT/HCPCS: 97110; 97161

== ENCOUNTER → 2019-07-01 08:54 | Outpatient (CLI) | payer OTHER, SELFPAY ==
--- NOTE | 2019-07-01 08:58 | BI_ITS ---
MAMMOGRAPHY - BILATERAL SCREENING 3-D TOMOSYNTHESIS REASON FOR EXAM: Female, 44 years old. PERTINENT HISTORY: No significant family history. TECHNIQUE: 2-D mammograms and 3-D Tomosynthesis of the breast (s) were performed. CAD was performed. COMPARISON: May 24, 2018 FINDINGS: The breast composition is fatty with minimal fibroglandular tissue No dense spiculated masses or suspicious microcalcifications are identified. No architectural distortion is identified. There is no skin thickening or nipple retraction. There has been no significant change since the prior study of May 16, 2018. BI/SCREEN MAMM (CAD) W/ANAND BILAT IMPRESSION: No mammographic signs of malignancy. Routine yearly mammograms recommended. ASSESSMENT CATEGORY: BIRADS Category 1: Negative. A letter regarding these results will be sent to the patient by the facility within 30 days. FOLLOW UP RECOMMENDATION: Yearly follow up mammogram recommended. (A) Approximately 10% of breast cancers are not detected by mammography. A normal mammogram should not delay biopsy of a clinically suspicious abnormality. Electronically Signed: Francia Quigley, at 13:54 EST Tel , Service support ,
== END ==
PROVIDERS: Family Provider Family Medicine; PCP Family Medicine; Referring Provider Obstetrics & Gynecology; Visit Provider Obstetrics & Gynecology
DX: Z12.31 Encounter for screening mammogram for malignant neoplasm of breast (principal)
CPT/HCPCS: 77063; 77067

== ENCOUNTER 2019-09-09 15:00 | Outpatient (RCR) | payer OTHER, SELFPAY ==
--- NOTE | 2019-08-19 16:51 | HP.PTEVAL_ITS ---
Patient's Visit Information PAO PANG is a 44 year old F referred to Physical Therapy by Jonathan Ruiz DPM with a diagnosis of PFitis R.. Date of Evaluation: 08/19/19 Physical Therapist: Sigifredo Prado DPT, OCS, CSCS - Visit Plan Frequency: 3x /Week Duration: 4-6 Weeks Plan: 3x/week for 3-6 for ... 1. rollout and STM to gastroc and PF R and stretch gastroc. [place] to R PF. 2. joint mobs for ankle DF grade 4. 3. US and or ionto with dex if ordered to R PF.(Request for ionto with dex sent to Dr. Ruiz, will fax to pharmacy when it arrives with My meds list(in EG box). ES if needed for pain with ice. - Subjective Findings: R PFitis. 3 options, shockwave, injection, PT. Been in boot since sent by family doctor late last year. Been in R boot 6+ weeks adn night boot. Boot helped initially 30% but that improvement has plateaud. Pain daily is 5/10. sometimes worse with much stairs and out of boot. Wears night brace much of night but off at about 3 am lately. Sleeps OK as far as pain goes. A ctivities : has to avoid walkign without a boot, walk for fitness. woudl like to do a few miles. Avoiding shooting hoops and volleyball. 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 Not missed work. - Pain R heel pain Pain Intensity (Out of 10): 3 Pain Intensity Range: 3, 8 Comment: arch - Objective Walks with R antalgia in boot, 3/10. Don and doffs boot I. Tender to touch moderately in body of R plantar fascia and into heel minimally. Full aROM R and L ankle without increased pain but gastroc is tight at -5 degrees R adn -2 L actively and -1 B passively with knee straight and 0 degrees with knee bent. Knee and hip ROM WFL. Strength at ankle 5/5 without increased pain, no tenderness with resistance. Unable to walk on heels due to pain, walks on toes without increased pain. Big toe strength and motion symmetrical and unremarkable. metatarsals are stiff symmetrically. - Goals Goal 1:: Ptien have 0 degrees of Active DF without pain Goal Time Frame: 2-4 Weeks Goal 2:: Patient not tender to touch throughout PF adn heel Goal Time Frame: 4-6 Weeks Goal 3:: Pt feel 90% better adn walk without boot without pain community. Goal Time Frame: 4-6 Weeks Goal 4:: LEFS < 20% disability Goal Time Frame: 4-6 Weeks Goal 5:: I approp HEP to minimize future problems. Goal Time Frame: 4-6 Weeks - Rehabilitation Potential Physical Therapy Diagnosis: R PFitis Rehabilitation Potential: Fair - Anticipated Interventions Patient/Client Instruction: Educate patient on: Condition, Plan of Care For the Purpose of:: To decrease pain, To increase ROM, To improve muscle performance and motor function, To improve ability of physical actions for home/community/work/leisure, To improve gait and locomotor functions Therapeutic Exercise to Include: Flexibilty training, Passive ROM, Active ROM For the Purpose of:: To decrease pain, To increase ROM, To increase tolerance to activity/condition/position, To improve ability of physical actions for home/community/work/leisure, To improve gait and locomotor functions Manual Therapy Techniques to Include: Passive ROM, Soft tissue mobilization For the Purpose of:: To decrease pain, To increase ROM, To increase tolerance to activity/condition/position, To improve ability of physical actions for home/community/work/leisure, To improve gait and locomotor functions Iontophoresis (with Dexamethozone, with Acetic acid): Yes - if ordered TENS: Yes Cryotherapy (ice pack, ice massage): Yes For the Purpose of:: To decrease pain, To decrease swelling/inflammation Thank you for the opportunity to evaluate your patient. For Medicare and Medicare HMO plans, please review the plan of care and approve it. It will need to be FAXED BACK to us at [phone] for Medicare purposes. For Medicare only, by signing this I certify the plan of care. Please let me know if there are questions or concerns regarding this plan of care. Physician Signature: Date:
--- NOTE | 2019-09-09 15:30 | HP.PTREVAL ---
Jonathan Ruiz, FAN, It has been my pleasure to treat PAO PANG over the last 10 visits for PFitis R.. Please see the progress note below for an update on the physical therapy plan of care! Subjective: To doctor in 6 days. Pain is minimal in boot. aches occasionally 2/10 on arch. No pattern noticeable. 6 hours out of boot Saturday and it swelled up. 3/10 lingering to the evening. Enjoys band exercises. Ouchy first thing in am but sleeping OK. Objective/Function: 2 degrees DF is improved ut still shy of wherre I would liek ti and tight. Tenderness R archa nd calcaneus is significantly improved and not tender today. Walking in boot is normal. Frontal plane mechanics a tfeet are unremarkable is orthotics would help or not but should be considered based on her history. Overall much better but SLOW improvement cosidering the time she has been in the boot. Plan Plan: Would like to continue 3x/week for 2 weeks depending on other options upon f/u with doctor nect Saturday. Continue ionto and consider orthotics if sent back by doctor. Appropriate to continue toward unmet goals with fair prognosis Goals Goal 1:: Ptien have 0 degrees of Active DF without pain Goal Time Frame: 2-4 Weeks Goal Progress: Goal Met Goal 2:: Patient not tender to touch throughout PF adn heel Goal Time Frame: 4-6 Weeks Goal Progress: Goal Met Goal 3:: Pt feel 90% better adn walk without boot without pain community. Goal Time Frame: 4-6 Weeks Goal Progress: Progressing Goal 4:: LEFS < 20% disability Goal Time Frame: 4-6 Weeks Goal Progress: Progressing Goal 5:: I approp HEP to minimize future problems. Goal Time Frame: 4-6 Weeks Goal Progress: Goal Met Anticipated Interventions Patient/Client Instruction: Educate patient on: Condition, Plan of Care For the Purpose of:: To decrease pain, To increase ROM, To improve muscle performance and motor function, To improve ability of physical actions for home/community/work/leisure, To improve gait and locomotor functions Therapeutic Exercise to Include: Flexibilty training, Passive ROM, Active ROM For the Purpose of:: To decrease pain, To increase ROM, To increase tolerance to activity/condition/position, To improve ability of physical actions for home/community/work/leisure, To improve gait and locomotor functions Manual Therapy Techniques to Include: Passive ROM, Soft tissue mobilization For the Purpose of:: To decrease pain, To increase ROM, To increase tolerance to activity/condition/position, To improve ability of physical actions for home/community/work/leisure, To improve gait and locomotor functions Iontophoresis (with Dexamethozone, with Acetic acid): Yes - if ordered TENS: Yes Cryotherapy (ice pack, ice massage): Yes For the Purpose of:: To decrease pain, To decrease swelling/inflammation Please do not hesitate to contact me at [phone] by phone or if you have questions or concerns regarding this new plan of care! Sincerely, Sigifredo Prado, DPT, OCS, CSCS
--- NOTE | 2019-09-17 10:23 | HP.PT.NRP ---
HP - Discharge Summary (1) - Patient Information PAO PANG was seen in my office for initial evaluation on 08/19/19. The following Plan of Care was established for this patient: Initial Frequency: 3x /Week Initial Duration: 4-6 Weeks - Anticipated Interventions Patient/Client Instruction: Educate patient on: Condition, Plan of Care For the Purpose of:: To decrease pain, To increase ROM, To improve muscle performance and motor function, To improve ability of physical actions for home/community/work/leisure, To improve gait and locomotor functions Therapeutic Exercise to Include: Flexibilty training, Passive ROM, Active ROM For the Purpose of:: To decrease pain, To increase ROM, To increase tolerance to activity/condition/position, To improve ability of physical actions for home/community/work/leisure, To improve gait and locomotor functions Manual Therapy Techniques to Include: Passive ROM, Soft tissue mobilization For the Purpose of:: To decrease pain, To increase ROM, To increase tolerance to activity/condition/position, To improve ability of physical actions for home/community/work/leisure, To improve gait and locomotor functions Iontophoresis (with Dexamethozone, with Acetic acid): Yes - if ordered TENS: Yes Cryotherapy (ice pack, ice massage): Yes For the Purpose of:: To decrease pain, To decrease swelling/inflammation This patient was last seen in our office 09/09/19. Pertinent comments regarding their Physical therapy will appear below: Pt seen 10 visits of treatment including iontophoresis. She was doing better adn followed up with doctor. she has contacted me to state that doctor said she could stop PT. I will disocntinue her at this time. At this point I will be discontinuing this patient from physical therapy. I would be happy to see this patient again in the future if found appropriate by the physician. Thank you! Sigifredo Prado, DPT, OCS, CSCS
== END 2019-09-09 19:00 | disposition home or self-care (01) ==
LOC: PT 15:00
PROVIDERS: Family Provider Family Medicine; PCP Family Medicine; Referring Provider Podiatrist; Visit Provider Podiatrist
DX: M72.2 Plantar fascial fibromatosis (principal)
CPT/HCPCS: 97033; 97035; 97110; 97140; 97161; 97164; 97530

== ENCOUNTER → 2020-02-29 10:29 | Outpatient (CLI) | payer OTHER, SELFPAY ==
[2019-09-12 10:05] VITALS: BMI 38.8
[2020-02-29 13:25] LABS: T4 Free Direct 1.42 ng/dL (0.76-1.46); Thyroid Stim Hormone (TSH) 0.98 uIU/mL (0.358-3.74)
== END ==
PROVIDERS: PCP Family Medicine; Referring Provider Family Medicine; Visit Provider Family Medicine
DX: E03.9 Hypothyroidism, unspecified (principal)
CPT/HCPCS: 84439; 84443

== ENCOUNTER → 2020-07-12 08:02 | Outpatient (CLI) | payer OTHER, SELFPAY ==
[2019-09-12 10:05] VITALS: BMI 38.8
--- NOTE | 2020-07-12 08:04 | BI_ITS ---
MAMMOGRAPHY - BILATERAL SCREENING REASON FOR EXAM: Female, 45 years old. Routine annual screening examination. PERTINENT HISTORY: Non-contributory. TECHNIQUE: Digital bilateral breast anand (3D mammographic acquisition) in the CC and MLO projections. 2-D mediolateral oblique (MLO) and craniocaudad (CC) views of both breasts were obtained. CAD: Full Field Digital Mammography with Computer Added Detection was performed. COMPARISON: Comparison is made with prior study dated 07/01/2019 and 05/16/2018. FINDINGS: Breast Composition: The breasts are almost entirely fatty. There are no dominant masses or suspicious calcifications. No other significant abnormalities are identified. There has been no significant change since the prior study. BI/SCREEN MAMM (CAD) W/ANAND BILAT IMPRESSION: Stable bilateral screening mammogram. Yearly follow-up mammogram recommended. (A) ASSESSMENT CATEGORY: BIRADS Category 1: Negative. A letter regarding these results will be sent to the patient by the facility within 30 days. Approximately 10% of breast cancers are not detected by mammography. A normal mammogram should not delay biopsy of a clinically suspicious abnormality. [id number] Electronically Signed: Oliver Oneil, at 8:54 EST , Service support ,
== END ==
PROVIDERS: PCP Family Medicine; Referring Provider Obstetrics & Gynecology; Visit Provider Obstetrics & Gynecology
DX: Z12.31 Encounter for screening mammogram for malignant neoplasm of breast (principal)
CPT/HCPCS: 77063; 77067

== ENCOUNTER 2020-12-10 00:44 | Emergency (ER) | payer OTHER, SELFPAY ==
[2019-09-12 10:05] VITALS: BMI 38.8
[2020-12-10 00:47] VITALS: BP 143/79; PULSE 75; RESP 20; TEMP 36.7; O2SAT 100; BMI 41.6
--- NOTE | 2020-12-10 01:10 | CT_ITS ---
STUDY: CT ABDOMEN AND PELVIS WITHOUT CONTRAST REASON FOR EXAM: Female, 45 years old. Pain RADIATION DOSAGE (If Supplied By Facility): CTDIvol = ( 22.80 ) mGy, DLP = ( 1218.80 ) mGycm TECHNIQUE: Transaxial images were obtained from the dome of the diaphragm to the symphysis pubis without oral contrast, and without intravenous contrast. Sagittal and coronal images were reconstructed. Individualized dose optimization techniques were used for this CT. COMPARISON: None. FINDINGS: Minimal bibasilar dependent atelectasis. Unremarkable liver, spleen, pancreas, and adrenals on this unenhanced study. No radiopaque urolithiasis or hydroureteronephrosis on either side. A 0.6 cm stone in the gallbladder. Small to moderate amount of retained stool throughout the colon and rectum with no evidence of bowel obstruction. Normal appendix. No free air or free fluid. No adenopathy. No abdominal aortic aneurysm. Sections through the pelvis demonstrate an incompletely distended urinary bladder. No adnexal masses seen. There is no acute abnormality in the regional skeleton. CT/Abdomen/Pelvis without Cont IMPRESSION: Cholelithiasis. No other acute finding the abdomen and pelvis on this unenhanced study. Normal appendix. Electronically Signed: Camron Sandoval MD at 2:25 EDT Tel , Service support ,
--- NOTE | 2020-12-10 01:11 | EX.ED.DYSGE1 ---
HPI History of Present Illness Chief Complaint: Abd Pain Narrative Narrative: This patient is a 45-year-old female who presents with sudden onset right lower abdominal pain. This began about 45 minutes ago. It woke her up. It was sudden onset. She describes it as sharp. It does radiate to the groin and into the right lower back. No history of prior similar symptoms. No history of ureterolithiasis. She did otherwise denies any recent illness such as fevers chest pain difficulty breathing cough. She does report nausea without vomiting. No diarrhea. No dysuria urinary urgency or frequency. She has a history of tubal ligation no other abdominal surgeries. [facility] Medical History (Updated 12/10/20 @ 03:[address] Dany Rodas MD) history of child history of cyst on wrist Thyroid disease Home Medications levothyroxine 125 mcg PO DAILY 12/22/14 [History Last Taken 12/29/14 06:00] Allergy/AdvReac Type Severity Reaction Status Date / Time No Known Allergies Allergy Verified 12/10/20 00:45 Social History (Updated 09/12/19 @ 10:32 by Ayan GUTIERREZ, PA) Smoking Status: Never smoker alcohol intake: never ROS ROS ED Constitutional Constitutional ED: Denies fever(s) Cardiovascular Cardiovascular: Denies chest pain Respiratory/Chest Respiratory/Chest: Denies dyspnea Gastrointestinal Gastrointestinal: Reports abdominal pain and nausea; Denies diarrhea or vomiting Genitourinary Genitourinary ED: Denies dysuria or hematuria Musculoskeletal Musculoskeletal: Denies arthralgias or myalgias Integumentary Denies rash Neurologic Neurologic: Denies headache(s) EXAM Physical Exam Const Vital Signs: 12/10/20 00:47 12/10/20 03:42 Temperature 98.1 F Temperature Source Oral Pulse Rate 75 81 Respiratory Rate 20 H 16 Blood Pressure 143/79 H 133/76 H Blood Pressure Mean 100 95 Pulse Ox 100 96 Oxygen Delivery Method Room Air Room Air Positive well nourished HEENT Reports moist mucous membranes Eyes EOMs intact bilaterally Neck supple Chest Wall inspection of chest normal Resp normal respiratory effort Cardio regular rate and regular rhythm GI non-tender and non-distended GI Narrative: No reproducible right lower abdominal tenderness Palpation: soft Back/Spine General Back: CVA tenderness right Neuro Sensorium / Orientation: alert Psych mental status grossly normal Skin no rashes or lesions noted MDM MDM MDM Narrative Medical decision making narrative: Patient initially given IV fluids morphine and Zofran with moderate improvement in symptoms. CBC unremarkable, chemistries unremarkable, urinalysis normal, negative, CT of the abdomen and pelvis shows cholelithiasis without evidence of acute cholecystitis. Patient was given IV Toradol and had complete resolution of her pain. I suspect her symptoms are related to biliary colic. On further history she had eaten a burger before her symptoms began. She was given advice on diet. She was referred to general surgery for outpatient follow-up. She does understand return for new or worsening symptoms otherwise to follow-up as an outpatient. Patient discharged. Lab Data Labs: Laboratory Results - last 24 hr 12/10/20 12/10/20 12/10/20 00:55 00:55 01:22 WBC 8.2 RBC 4.35 Hgb 12.4 Hct 39.0 MCV 89.7 MCH 28.5 MCHC 31.8 L RDW Std Deviation 43.4 RDW Coeff of Carmen 13.2 Plt Count 300 MPV 9.6 Immature Gran % (Auto) 0.200 Neut % (Auto) 52.4 Lymph % (Auto) 35.2 Guthrie % (Auto) 7.8 Eos % (Auto) 3.5 Baso % (Auto) 0.9 Absolute Neuts (auto) 4.3 Absolute Lymphs (auto) 2.89 Nucleated RBC % 0 Sodium 139 Potassium 3.6 Chloride 104 Carbon Dioxide 31.0 Anion Gap 4 L BUN 18 Creatinine 0.83 Estim Creat Clear Calc 72.36 Est GFR (MDRD) Af Amer 95 Est GFR (MDRD) Non-Af 78 BUN/Creatinine Ratio 21.7 H Glucose 120 H Calcium 9.1 Total Bilirubin 0.20 AST 9 L ALT 20 Alkaline Phosphatase 64 Total Protein 7.5 Albumin 3.7 Globulin 3.8 Albumin/Globulin Ratio 1.0 Urine Color Yellow Urine Clarity Clear Urine pH 6.5 Ur Specific [place] 1.015 Urine Protein Negative Urine Glucose (UA) Normal Urine Ketones Negative Urine Occult Blood Negative Urine Nitrite Negative Urine Bilirubin Negative Urine Urobilinogen Normal Ur Leukocyte Esterase Negative Urine RBC 0 SEEN Urine WBC 0 SEEN Ur Squamous Epith Cells 0-5 SEEN Urine Bacteria 0 SEEN Urine Mucus 0 SEEN Urine Test 12/10/20 01:22 WBC RBC Hgb Hct MCV MCH MCHC RDW Std Deviation RDW Coeff of Carmen Plt Count MPV Immature Gran % (Auto) Neut % (Auto) Lymph % (Auto) Guthrie % (Auto) Eos % (Auto) Baso % (Auto) Absolute Neuts (auto) Absolute Lymphs (auto) Nucleated RBC % Sodium Potassium Chloride Carbon Dioxide Anion Gap BUN Creatinine Estim Creat Clear Calc Est GFR (MDRD) Af Amer Est GFR (MDRD) Non-Af BUN/Creatinine Ratio Glucose Calcium Total Bilirubin AST ALT Alkaline Phosphatase Total Protein Albumin Globulin Albumin/Globulin Ratio Urine Color Urine Clarity Urine pH Ur Specific [place] Urine Protein Urine Glucose (UA) Urine Ketones Urine Occult Blood Urine Nitrite Urine Bilirubin Urine Urobilinogen Ur Leukocyte Esterase Urine RBC Urine WBC Ur Squamous Epith Cells Urine Bacteria Urine Mucus Urine Test Negative Radiography Diagnostic Testing: Radiology Impression Abdomen/Pelvis CT 12/10/20 01:10 IMPRESSION: Cholelithiasis. No other acute finding the abdomen and pelvis on this unenhanced study. Normal appendix. Electronically Signed: Camron Sandoval MD at 2:25 EDT Tel , Service support , Discharge Plan Triage Chief Complaint: Abd Pain ED Provider: Dany Rodas Dx/Rx/DC Orders Clinical Impression: Biliary colic Instructions: ED Gallstones with Biliary Colic Prescriptions: No Action levothyroxine 125 MCG tablet 125 mcg PO DAILY RF: 0 Primary Care Provider: Sigifredo Esquivel Referrals: Sigifredo Esquivel MD [Primary Care Provider] - Malathi Gamino MD [STAFF PHYSICIAN] - Disposition Disposition: Home, self care
[2020-12-10 01:15] LABS: Absolute Lymphocyte Count 2.89 X10^3/uL (0.83-4.51); Absolute Neutrophil Count 4.3 X10^3/uL (2.0-7.7); Basophil# 0.07 X10^3/uL; Basophil% 0.9 % (0-1); Eosinophil# 0.29 X10^3/uL; Eosinophils% 3.5 % (0-5); Hemoglobin 12.4 g/dL (12.0-15.0); Lymphocyte # 2.89 X10^3/ul (0.83-4.51); Lymphocyte % 35.2 % (19-41); Mean Corp Hgb Conc 31.8 g/dL (32-36); Mean Corpuscular Hgb 28.5 pg (27.0-32.0); Mean Corpuscular Volume 89.7 fL (81-99); Mean Platelet Vol. 9.6 fl (6.2-12.0); Monocyte# 0.64 X10^3/uL; Monocyte% 7.8 % (0-10); NRBC Flagged by Analyzer 0 % (0-5); Neutrophil % 52.4 % (47-70); Platelet Count 300 K/mm3 (150-450); RBC Distribution Width CV 13.2 % (11.6-14.6); RBC Distribution Width SD 43.4 fl (35.1-43.9); Red Blood Count 4.35 M/mm3 (4.2-5.4); White Blood Count 8.2 K/mm3 (4.4-11.0)
[2020-12-10 01:26] LABS: Bacteria 0 SEEN /hpf (None Seen); Mucous, Urine 0 SEEN /hpf (<or=2+); Red Blood Cells-Urine 0 SEEN /hpf (0-5); White Blood Cells 0 SEEN /hpf (0-5)
[2020-12-10 01:28] LABS: AST(SGOT) 9 U/L (15-37); Alanine Aminotransfer ALT/SGPT 20 U/L (13-56); Albumin, Serum 3.7 g/dL (3.2-5.0); Alkaline Phosphatase 64 U/L (45-117); Anion Gap 4 (5-15); BUN 18 mg/dL (7-18); BUN/Creat Ratio 21.7 RATIO (10-20); Calcium,Total 9.1 mg/dL (8.5-10.1); Chloride 104 mmol/L (98-107); Creatinine, Serum 0.83 mg/dL (0.55-1.02); EST Glomerular Filtration Rate 78 mL/min (>60); Est Glom Filt Rate - Afr Amer 95 mL/min (>60); Estimated Creatinine Clearance 72.36 ml/min; Globulin 3.8 g/dL (2.2-4.2); Glucose 120 mg/dL (74-106); Potassium 3.6 mmol/L (3.5-5.1); Protein, Total 7.5 g/dL (6.4-8.2); Sodium Level 139 mmol/L (136-145)
[2020-12-10 01:30] LABS: Internal QC Validated? YES +Cl - CLEAR BKGD; Pregnancy, Urine Negative Negative
[2020-12-10] MEDS: Morphine 4 MG/ML Syringe IV (01:31)
[2020-12-10 01:32] LABS: Color, Urine Yellow (Yellow); Glucose, Dipstick Normal (Normal); Ketone-Dipstick Negative (Negative); Leukocyte Esterase-Dipstick Negative /ul (Negative); Nitrite-Dipstick Negative (Negative); Occult Blood-Urine Negative /ul (Negative); Protein-Dipstick Negative (Negative); Specific Gravity, Urine 1.015 (1.002-1.030); Urine Bilirubin Dipstick Negative (Negative); Urine Clarity Clear (Clear); Urine Urobilinogen Normal (Normal); Urine pH 6.5 (5.0 - 8.0)
[2020-12-10] MEDS: 0.9% Normal Saline 1,000 ML 999 ML IV (01:32)
[2020-12-10] MEDS: Ondansetron 4 MG/2 ML Vial IV (01:32)
[2020-12-10 01:34] LABS: Squamous Epithelial Cells - UA 0-5 SEEN /hpf (5-10)
[2020-12-10] MEDS: Ketorolac 30 MG/ML Syringe IV (03:06)
[2020-12-10 03:42] VITALS: BP 133/76; PULSE 81; RESP 16; O2SAT 96
== END 2020-12-10 03:59 | disposition home or self-care (01) ==
PROVIDERS: Emergency Provider Emergency Medicine; PCP Family Medicine
DX: K80.70 Calculus of gallbladder and bile duct without cholecystitis without obstruction (principal); E07.9 Disorder of thyroid, unspecified; Z79.890 Hormone replacement therapy; Z98.51 Tubal ligation status
CPT/HCPCS: 74176; 80053; 81001; 81025; 85025; 96361; 96374; 96375; 99282; J7030; A4216; J2405

== ENCOUNTER 2021-02-22 08:00 | Outpatient (RCR) | payer OTHER, SELFPAY ==
--- NOTE | 2021-01-25 09:21 | HP.PTEVAL_ITS ---
Patient's Visit Information PAO PANG is a 46 year old F referred to Physical Therapy by Dr. Sigifredo Esquivel MD with a diagnosis of R lateral epicondylitis. Date of Evaluation: 01/25/21 Physical Therapist: Sammy Zavala, PT, ATC - Visit Plan Frequency: 2x /Week Duration: 4 Weeks Plan: L wrist extensor stretching, DTR, ecc strengthening, ionto, and US - Subjective Pt reports she has had R lateral elbow pain for a few months now. Pt reports she is not sure what really caused this pain but notes she has had to perform a lot of labor around her house consisting of sweeping and raking. Pt also notes she has been told by her doctor that maybe using her mouse at work could have provoked this pain. Pt notes she can feel the inflammation throughout her R lateral elbow region. Pt notes sleep difficulty secondary to pain. No x-rays or other diagnostic tests at this time. Pt notes no PMHx of this type of pain. Pt is ambidextrous. Pt reports she is still able to do most of her house chores, but still has significant pain. No tingling or numbness in her R UE. Pt notes her R UE has a heavy feeling to it. 2/10 pain at rest, 7/10 pain at worst - Pain R lateral elbow Pain Intensity (Out of 10): 2 Pain Intensity Range: 7 - Objective Neuro: B UE sensation is WNL to light touch. B bicepital reflex= 2/3. ROM: L wrist flex= 70, ext= 75; R wrist flex= 60, ext= 55. Fire Control System Installer strength: L hand 70#/F, R hand 25 #/F. MMT: R wrist ext= 4-/5 and painful. All other B wrist motions 5/5 throughout. Palpation: Pt is very tender along the lateral epicondyle. Minor swelling noted. No obvious deformity present at this time. - Goals Goal 1:: Decrease R elbow pain x 50% to aid with sleep Goal Time Frame: 4-6 Weeks Goal 2:: Increase R sales record clerk strength x 20 #/F to aid with IADL's Goal Time Frame: 4-6 Weeks Goal 3:: Increase R wrist flex ROM x 10 degrees to aid with decreasing pain Goal Time Frame: 4-6 Weeks Goal 4:: I with HEP Goal Time Frame: 4-6 Weeks - Rehabilitation Potential Physical Therapy Diagnosis: Pt has R elbow pain, wrist weakness, and limited wrist ROM secondary to R lateral epicondylitis Rehabilitation Potential: Good - Anticipated Interventions Patient/Client Instruction: Educate patient on: Condition, Plan of Care For the Purpose of:: To improve self management Therapeutic Exercise to Include: Strength training, Flexibilty training, Passive ROM, Active ROM For the Purpose of:: To decrease pain, To increase ROM, To improve muscle performance and motor function Iontophoresis (with Dexamethozone, with Acetic acid): Yes Ultrasound (thermal/non thermal): Yes For the Purpose of:: To decrease pain Thank you for the opportunity to evaluate your patient. For Medicare and Medicare HMO plans, please review the plan of care and approve it. It will need to be FAXED BACK to us at [phone] for Medicare purposes. For Medicare only, by signing this I certify the plan of care. Please let me know if there are questions or concerns regarding this plan of care. Physician Signature: Date:
--- NOTE | 2021-02-22 08:36 | HP.PTREVAL ---
Dr. Sigifredo Esquivel MD, It has been my pleasure to treat PAO PANG over the last 9 visits for R lateral epicondylitis. Please see the progress note below for an update on the physical therapy plan of care! Subjective: Pt reports she feels significantly better at this time. Objective/Function: R elbow pain now 09/14. No sleep difficulty at this time secondary to pain. R sports book board attendant strength 70#F. R wrist flex= 65 degrees. Pt is I with HEP and has achieved all Rx goals Plan Plan: Cont or discharge after one month followup Goals Goal 1:: Decrease R elbow pain x 50% to aid with sleep Goal Time Frame: 4-6 Weeks Goal Progress: Goal Met Goal 2:: Increase R sports book board attendant strength x 20 #/F to aid with IADL's Goal Time Frame: 4-6 Weeks Goal Progress: Goal Met Goal 3:: Increase R wrist flex ROM x 10 degrees to aid with decreasing pain Goal Time Frame: 4-6 Weeks Goal Progress: Goal Met Goal 4:: I with HEP Goal Time Frame: 4-6 Weeks Goal Progress: Goal Met Anticipated Interventions Patient/Client Instruction: Educate patient on: Condition, Plan of Care For the Purpose of:: To improve self management Therapeutic Exercise to Include: Strength training, Flexibilty training, Passive ROM, Active ROM For the Purpose of:: To decrease pain, To increase ROM, To improve muscle performance and motor function Iontophoresis (with Dexamethozone, with Acetic acid): Yes Ultrasound (thermal/non thermal): Yes For the Purpose of:: To decrease pain Please do not hesitate to contact me at [phone] by phone or if you have questions or concerns regarding this new plan of care! Sincerely, Sammy Zavala, PT, ATC
--- NOTE | 2021-06-09 13:11 | HP.PT.NRP ---
PAO PANG was seen in my office for initial evaluation on 01/25/21. The following Plan of Care was established for this patient: Initial Frequency: 2x /Week Initial Duration: 4 Weeks Patient/Client Instruction: Educate patient on: Condition, Plan of Care For the Purpose of:: To improve self management Therapeutic Exercise to Include: Strength training, Flexibilty training, Passive ROM, Active ROM For the Purpose of:: To decrease pain, To increase ROM, To improve muscle performance and motor function Iontophoresis (with Dexamethozone, with Acetic acid): Yes Ultrasound (thermal/non thermal): Yes For the Purpose of:: To decrease pain This patient was last seen in our office . Pertinent comments regarding their Physical therapy will appear below: Pt was treated for 9 PT visits secondary to R elbow pain through the date of 02/22/21. Pt has not returned through todays date and is discontinued at this time. At this point I will be discontinuing this patient from physical therapy. I would be happy to see this patient again in the future if found appropriate by the physician. Thank you! Sammy Zavala, PT, ATC Balance/Gait/Functional tests - Balance/Special Test Scores Quick DASH Score: 4.5450
== END 2021-02-22 19:00 | disposition home or self-care (01) ==
LOC: PT 08:00
PROVIDERS: PCP Family Medicine; Referring Provider Family Medicine; Visit Provider Family Medicine
DX: M77.11 Lateral epicondylitis, right elbow (principal)
CPT/HCPCS: 97035; 97161; 97164

== ENCOUNTER → 2021-03-24 15:34 | Outpatient (CLI) | payer OTHER, SELFPAY ==
[2021-03-24 16:14] LABS: T4 Free Direct 1.33 ng/dL (0.76-1.46)
== END ==
PROVIDERS: PCP Family Medicine; Visit Provider Family Medicine
DX: E03.9 Hypothyroidism, unspecified (principal)
CPT/HCPCS: 36415; 84439; 84443

== ENCOUNTER → 2021-05-16 16:14 | Outpatient (CLI) | payer OTHER, SELFPAY ==
--- NOTE | 2021-05-16 16:17 | RAD_ITS ---
HISTORY: medial knee pain EXAMINATION/TECHNIQUE: XR Knee Complete 4 Views or More: Weightbearing views COMPARISON: None FINDINGS: BONES/JOINTS: No acute fracture or dislocation. Moderate medial joint space narrowing. No sclerotic or destructive changes observed. SOFT TISSUES: No soft tissue swelling or gas. No radiopaque foreign body. RAD/Knee 4 or More Views IMPRESSION: Moderate joint space narrowing of the medial compartment. at 0053 Reported and signed by: Zane Culp MD Electronically Signed: Zane Culp MD at 0:52 EDT Tel , Service support ,
== END ==
PROVIDERS: PCP Family Medicine; Referring Provider Family Medicine; Visit Provider Family Medicine
DX: M25.561 Pain in right knee (principal)
CPT/HCPCS: 73564

== ENCOUNTER 2021-06-13 17:30 | Outpatient (RCR) | payer OTHER, SELFPAY ==
--- NOTE | 2021-05-25 18:31 | HP.PTEVAL_ITS ---
Patient's Visit Information PAO PANG is a 46 year old F referred to Physical Therapy by Dr. Ifeanyi Ramos MD with a diagnosis of R knee pain. Date of Evaluation: 05/25/21 Physical Therapist: MAGDALENE PetersenT, OCS, CSCS - Visit Plan Frequency: 2-3x /Week Duration: 4-6 Weeks Plan: 2-3x/week for 4 weeks for... 1. knee ROM and patellaar mobs, rollout and stretch R quad and HS. 2. strength NWB to WB for quad, HS, hip stabs. 3. TENS and Ice for medial knee pain. - Subjective R knee hurts and has for 11 days. She is not sure what caused it but was gathering wood out of [place] which is not unusual for her. It swelled up and hurt that night. Pain is medial R knee and anterior. it is not improving and she has been wearing a brace. Pain is 4/10 at rest and worse with WB and throbbed 8/10. Not sure why that day was worse. Sleep is not interrupted at this point. Saw doctor and did x ray which was OK except for mild OA. Sent for PT and no meds or exercises. 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 Hobbie include playing with dog and gardening and [place] and cannot do those things. Dresses self but hard to get sock on and is hard to bend. Shower bath are OK. Steps are slow but able. using L. Cooking and cleaning slow. - Pain R knee Pain Intensity (Out of 10): 4 Pain Intensity Range: 4, 9 - Objective Walks with some R antalgia but I. Trasnfers slow but I. Steps are painful with R and require railings, otherwise just using L. Posture shows avoidance of knee ext on R in standing and supine. Tender to palpation medial joint line R knee moderately. + R bounce home and disco test. - ant drawer, varus, valgus and patellar grind. AROM R knee 0 pain to 105 pain and pressure. L kknee 0-130. hip and ankle aROM WFL B and symmetrical. Sensation LE WNL to gross light touch. Strength b hip abd and ext 3+, flexion 4-. ankle strength 4 in all directions B, some right knee pain with R inversion. Strength knee flexion 3+ R and 4+ L, knee ext is 3 r and 4+ L. - Balance/Special Test Scores Lower Extremity Functional Score: 48 - Goals Goal 1:: R knee AROM 0-130 without pain. Goal Time Frame: 4-6 Weeks Goal 2:: Walk without antlagia and normal steps reciprocally without need for railing. Goal Time Frame: 4-6 Weeks Goal 3:: Pt feel 90% back to normal activitiy and no pain Goal Time Frame: 4-6 Weeks Goal 4:: I appropriate ex and management of condition. Goal Time Frame: 4-6 Weeks Goal 5:: LEFS 60/80 Goal Time Frame: 4-6 Weeks - Rehabilitation Potential Physical Therapy Diagnosis: r knee pain possibly meniscal in nature. Rehabilitation Potential: Good - Anticipated Interventions Patient/Client Instruction: Educate patient on: Condition, Plan of Care For the Purpose of:: To decrease pain, To increase ROM, To improve muscle performance and motor function Therapeutic Exercise to Include: Strength training, Flexibilty training, Gait and locomotor training, Passive ROM, Active ROM For the Purpose of:: To decrease pain, To increase ROM, To improve muscle performance and motor function, To increase tolerance to activity/condition/position Manual Therapy Techniques to Include: Mobilization, Soft tissue mobilization For the Purpose of:: To increase ROM TENS: Yes Cryotherapy (ice pack, ice massage): Yes For the Purpose of:: To decrease swelling/inflammation Thank you for the opportunity to evaluate your patient. For Medicare and Medicare HMO plans, please review the plan of care and approve it. It will need to be FAXED BACK to us at [phone] for Medicare purposes. For Medicare only, by signing this I certify the plan of care. Please let me know if there are questions or concerns regarding this plan of care. Physician Signatu re: Date:
--- NOTE | 2021-06-13 17:57 | HP.PTREVAL ---
Dr. Ifeanyi Ramos MD, It has been my pleasure to treat PAO PANG over the last 6 visits for R knee pain. Please see the progress note below for an update on the physical therapy plan of care! Subjective: We are getting better. Not limping as bad. Less pain overall. If I stay off of it then it doesn't hurt. Lots of walking in [place] Saturday and it got 8/10 that night and it swelled up. Iced it that night and 4/10 the next day. Sitting at work is OK. Objective/Function: R quad 3+ and HS 4-, painful with quad contraction. + bounce home still. 0-112 AROM. Still R antalgia in gait and hard to push up steps without pain, needs rail. Tender medial joint line. Plan Plan: Recommend patient return to doctor for next medical step(MRI?) as she is not improving quickly at all. Meniscal pathology is suspected. Will hold chart for her to return if needed. Pt to contact doctor Esquivel for appointment Balance/Gait/Functional tests - Balance/Special Test Scores Lower Extremity Functional Score: 43 Goals Goal 1:: R knee AROM 0-130 without pain. Goal Time Frame: 4-6 Weeks Goal Progress: slowly improved Goal 2:: Walk without antlagia and normal steps reciprocally without need for railing. Goal Time Frame: 4-6 Weeks Goal Progress: Not Progressing Goal 3:: Pt feel 90% back to normal activitiy and no pain Goal Time Frame: 4-6 Weeks Goal Progress: 60% Goal 4:: I appropriate ex and management of condition. Goal Time Frame: 4-6 Weeks Goal Progress: Progressing Goal 5:: LEFS 60/80 Goal Time Frame: 4-6 Weeks Goal Progress: Not Progressing Anticipated Interventions Patient/Client Instruction: Educate patient on: Condition, Plan of Care For the Purpose of:: To decrease pain, To increase ROM, To improve muscle performance and motor function Therapeutic Exercise to Include: Strength training, Flexibilty training, Gait and locomotor training, Passive ROM, Active ROM For the Purpose of:: To decrease pain, To increase ROM, To improve muscle performance and motor function, To increase tolerance to activity/condition/position Manual Therapy Techniques to Include: Mobilization, Soft tissue mobilization For the Purpose of:: To increase ROM TENS: Yes Cryotherapy (ice pack, ice massage): Yes For the Purpose of:: To decrease swelling/inflammation Please do not hesitate to contact me at [phone] by phone or if you have questions or concerns regarding this new plan of care! Sincerely, Sigifredo Prado, DPT, OCS, CSCS
--- NOTE | 2021-08-18 10:01 | HP.PTDCSUM ---
It has been my pleasure to treat PAO PANG referred by Dr. Ifeanyi Ramos MD, with the diagnosis of R knee pain for a total of 6 visit(s). Discharge Date: Please see the following information for a summary of their discharge status. Subjective: We are getting better. Not limping as bad. Less pain overall. If I stay off of it then it doesn't hurt. Lots of walking in [place] Saturday and it got 8/10 that night and it swelled up. Iced it that night and 4/10 the next day. Sitting at work is OK. R knee Pain Intensity (Out of 10): 3 % Improvement: 70 Objective/Function: R quad 3+ and HS 4-, painful with quad contraction. + bounce home still. 0-112 AROM. Still R antalgia in gait and hard to push up steps without pain, needs rail. Tender medial joint line. Goal 1:: R knee AROM 0-130 without pain. Goal Progress: slowly improved Goal 2:: Walk without antlagia and normal steps reciprocally without need for railing. Goal Progress: Not Progressing Goal 3:: Pt feel 90% back to normal activitiy and no pain Goal Progress: 60% Goal 4:: I appropriate ex and management of condition. Goal Progress: Progressing Goal 5:: LEFS 60/80 Goal Progress: Not Progressing Plan: Recommend patient return to doctor for next medical step(MRI?) as she is not improving quickly at all. Meniscal pathology is suspected. Will hold chart for her to return if needed. Pt to contact doctor Esquivel for appointment If there are questions or concerns regarding this patient's physical therapy, please feel free to call me at [phone]. Thank you for the referral of this patient. Sincerely, Sigifredo Prado, DPT, OCS, CSCS Balance/Gait/Functional tests - Balance/Special Test Scores Lower Extremity Functional Score: 43
== END 2021-06-13 19:00 | disposition home or self-care (01) ==
LOC: PT 17:30
PROVIDERS: PCP Family Medicine; Referring Provider Family Medicine; Visit Provider Family Medicine
DX: M25.561 Pain in right knee (principal)
CPT/HCPCS: 97014; 97110; 97161; 97164; G0283

== ENCOUNTER → 2021-07-11 06:34 | Outpatient (CLI) | payer OTHER, SELFPAY ==
--- NOTE | 2021-07-11 06:35 | MRI_ITS ---
STUDY: MRI RIGHT KNEE REASON FOR EXAM: Right medial knee pain and swelling for 3-4 months, prior surgery. TECHNIQUE: Standardized fat and water weighted pulse sequences were obtained in all 3 orthogonal planes. COMPARISON: Radiographs 05/16/2021. FINDINGS: There is attrition of the posterior horn and body of the medial meniscus suggestive of partial medial meniscectomy. There is a complex signal alteration of the body and posterior horn of the medial meniscus (proton-density coronal images 14-17; proton-density coronal images 29-34), either recurrent medial meniscal tear or scarring. There is peripheral subluxation of the medial meniscus. There is arthrosis of the medial femorotibial compartment with chondral thinning (T2 sagittal image 19). There is subchondral bone edema of the medial tibial plateau (T2 coronal images 14-19), a stress phenomenon. Normal medial collateral ligamentous complex (MCL). Normal distal semimembranosus, gracilis and semitendinosus tendons. Normal lateral meniscus. Normal hyaline cartilage of the lateral femorotibial compartment. Normal lateral femoral condyle and tibial plateau. Normal proximal tibiofibular articulation. Normal lateral collateral (fibular) ligament. Normal popliteus tendon. Normal biceps femoris tendon. Normal anterior cruciate ligament (ACL). Normal posterior cruciate ligament (PCL). Normal congruent patellofemoral articulation. There is low-grade chondromalacia of the lateral patellar facet (T2 axial image 11). Normal medial and lateral patellar retinaculum. Normal visualized quadriceps tendon. Normal patellar tendon. There is postoperative scarring in Hoffa''s fat pad. There is a very small joint effusion. There is a thickened medial patellar plica (T2 axial image 12). There is a small ganglion cyst at the posterior joint capsule of the knee near the midline (T2 sagittal images 11, 12) measuring 1.8 cm in length. The otherwise visualized osseous structures are unremarkable. MRI/Lower Ext Joint Only (Routine) IMPRESSION: Partial medial meniscectomy with signal alteration of the body and posterior horn of the medial meniscus, either recurrent medial meniscal tear or scarring. Arthrosis of the medial femorotibial compartment. Subchondral bone edema of the medial tibial plateau, a stress phenomenon. Low-grade chondromalacia patellae. Very small joint effusion. Thickened medial patellar plica. Small posterior ganglion cyst. Electronically Signed: Italo Magdaleno MD at 8:00 EST Tel , Service support ,
== END ==
PROVIDERS: PCP Family Medicine; Referring Provider Family Medicine; Visit Provider Family Medicine
DX: S89.91XS Unspecified injury of right lower leg, sequela (principal); X58.XXXS Exposure to other specified factors, sequela
CPT/HCPCS: 73721

== ENCOUNTER → 2021-07-19 07:08 | Outpatient (CLI) | payer OTHER, SELFPAY ==
--- NOTE | 2021-07-18 16:24 | BI_ITS ---
MAMMOGRAPHY - BILATERAL SCREENING REASON FOR EXAM: Female, 46 years old. Routine annual screening examination. PERTINENT HISTORY: Non-contributory. TECHNIQUE: Digital bilateral breast anand (3D mammographic acquisition) in the CC and MLO projections. 2-D mediolateral oblique (MLO) and craniocaudad (CC) views of both breasts were obtained. CAD: Full Field Digital Mammography with Computer Added Detection was performed. COMPARISON: Comparison is made with prior study date 07/12/2020 and 07/01/2019. FINDINGS: Breast Composition: The breasts are almost entirely fatty. There are no dominant masses or suspicious calcifications. No other significant abnormalities are identified. There has been no significant change since the prior study. BI/SCRN MAMM (CAD)W/ANAND BILAT IMPRESSION: Stable bilateral screening mammogram. Yearly follow-up mammogram recommended. (A) ASSESSMENT CATEGORY: BIRADS Category 1: Negative. A letter regarding these results will be sent to the patient by the facility within 30 days. Approximately 10% of breast cancers are not detected by mammography. A normal mammogram should not delay biopsy of a clinically suspicious abnormality. [id number] Electronically Signed: Oliver Oneil MD at 8:41 EST , Service support ,
== END ==
PROVIDERS: PCP Family Medicine; Referring Provider Obstetrics & Gynecology; Visit Provider Obstetrics & Gynecology
DX: Z12.31 Encounter for screening mammogram for malignant neoplasm of breast (principal)
CPT/HCPCS: 77063; 77067

== ENCOUNTER 2021-10-23 14:42 | Outpatient (CLI) | payer OTHER, SELFPAY ==
--- NOTE | 2021-10-23 14:48 | VDLE_ITS ---
Reason For Study: Swelling RIGHT LEFT GSV is normal. CFV is compressible, spontaneous, phasic, CFV is compressible, spontaneous, phasic, competent, and demonstrates normal competent and demonstrates normal augmentation. augmentation. FV is compressible, spontaneous, phasic, competent and demonstrates normal augmentation. POP V is compressible, spontaneous, phasic, competent and demonstrates normal augmentation. T/P Trunk is compressible. PTV is compressible. RT PerV is compressible. Rt GastrocV is dilated and non compressible consistent with acute DVT. Procedure This is a venous duplex using B-mode, color flow and spectral Doppler. A preliminary report was called and/or faxed to [facility]. VL/Venous Duplex US, Unilateral Interpretation Summary Acute deep venous thrombosis right gastrocnemius vein. No evidence for proximal progression Patent and compressible right great saphenous vein Normal flow patterns left common femoral vein Ordering Physician: Sigifredo Esquivel Referring Physician: Sigifredo Esquivel Performed By: Chelsea Goodrich RVT
== END 2021-10-23 23:59 | disposition home or self-care (01) ==
LOC: CVS 14:44
PROVIDERS: PCP Family Medicine; Referring Provider Family Medicine; Visit Provider Family Medicine
DX: M79.89 Other specified soft tissue disorders (principal)
CPT/HCPCS: 93971

== ENCOUNTER → 2022-01-31 | Outpatient (CLI) | payer OTHER, SELFPAY ==
[2022-01-31 10:18] LABS: T4 Free Direct 1.29 ng/dL (0.76-1.46); Thyroid Stim Hormone (TSH) 0.43 uIU/mL (0.358-3.74)
== END | disposition home or self-care (01) ==
LOC: LAB 08:40
PROVIDERS: PCP Family Medicine; Visit Provider Family Medicine
DX: E03.9 Hypothyroidism, unspecified (principal)
CPT/HCPCS: 84439; 84443

== ENCOUNTER → 2022-05-18 | Outpatient (CLI) | payer OTHER, SELFPAY ==
--- NOTE | 2022-05-18 14:18 | RAD_ITS ---
EXAM: XR RIGHT WRIST COMPLETE, 3 OR MORE VIEWS CLINICAL INDICATION: distal ulnar wrist pain TECHNIQUE: Frontal, lateral and oblique views of the right wrist. This report was created using [employer] report generation technology. COMPARISON: None. FINDINGS: BONES/JOINTS: Unremarkable. No acute fracture. No subluxation. Normal alignment. Preservation of the joint space. No sclerotic or destructive changes observed. SOFT TISSUES: Unremarkable. No soft tissue swelling or gas. No radiopaque foreign body. RAD/Wrist min 3 Views IMPRESSION: Negative right wrist x-rays. Electronically Signed: Jian Ohara MD at 22:47 EDT ,
== END | disposition home or self-care (01) ==
LOC: MTRAD 14:18
PROVIDERS: PCP Family Medicine; Referring Provider Family Medicine; Visit Provider Family Medicine
DX: M25.531 Pain in right wrist (principal); G89.29 Other chronic pain
CPT/HCPCS: 73110

== ENCOUNTER → 2022-07-24 | Outpatient (CLI) | payer OTHER, SELFPAY ==
--- NOTE | 2022-07-24 07:15 | BI_ITS ---
MAMMOGRAPHY - BILATERAL SCREENING REASON FOR EXAM: Female, 47 years old. Routine annual screening examination. PERTINENT HISTORY: Non-contributory. TECHNIQUE: Digital bilateral breast anand (3D mammographic acquisition) in the CC and MLO projections. 2-D mediolateral oblique (MLO) and craniocaudad (CC) views of both breasts were obtained. CAD: Full Field Digital Mammography with Computer Added Detection was performed. COMPARISON: Comparison is made with prior study dated 07/18/2021 and 07/12/2020. FINDINGS: Breast Composition: The breasts are almost entirely fatty. There are no dominant masses or suspicious calcifications. No other significant abnormalities are identified. There has been no significant change since the prior study. BI/SCRN MAMM (CAD)W/ANAND BILAT IMPRESSION: Stable bilateral screening mammogram. Yearly follow-up mammogram recommended. (A) ASSESSMENT CATEGORY: BIRADS Category 1: Negative. A letter regarding these results will be sent to the patient by the facility within 30 days. Approximately 10% of breast cancers are not detected by mammography. A normal mammogram should not delay biopsy of a clinically suspicious abnormality. [id number] Electronically Signed: Oliver Oneil MD at 9:20 EST ,
== END | disposition home or self-care (01) ==
LOC: OPBI 07:14
PROVIDERS: PCP Family Medicine; Visit Provider Family Medicine
DX: Z12.31 Encounter for screening mammogram for malignant neoplasm of breast (principal)
CPT/HCPCS: 77063; 77067

== ENCOUNTER → 2023-01-09 | Outpatient (CLI) | payer OTHER, SELFPAY ==
[2023-01-09 08:27] LABS: Thyroid Stim Hormone (TSH) 9.54 uIU/mL (0.358-3.74)
== END | disposition home or self-care (01) ==
LOC: LAB 07:26
PROVIDERS: PCP Family Medicine; Referring Provider Family Medicine; Visit Provider Family Medicine
DX: E03.9 Hypothyroidism, unspecified (principal)
CPT/HCPCS: 36415; 84439; 84443

== ENCOUNTER → 2023-02-19 | Outpatient (CLI) | payer OTHER, SELFPAY ==
[2023-02-19 09:21] LABS: Free T3 3.2 pg/mL (2.18-3.98); T4 Free Direct 1.36 ng/dL (0.76-1.46); Thyroid Stim Hormone (TSH) 1.51 uIU/mL (0.358-3.74); Uric Acid 7.4 mg/dL (2.6-6.0)
== END | disposition home or self-care (01) ==
LOC: LAB 07:20
PROVIDERS: PCP Family Medicine; Referring Provider Family Medicine; Visit Provider Family Medicine
DX: E03.9 Hypothyroidism, unspecified (principal); E79.0 Hyperuricemia without signs of inflammatory arthritis and tophaceous disease
CPT/HCPCS: 36415; 84439; 84443; 84481; 84550

== ENCOUNTER 2023-02-20 09:47 | Outpatient (CLI) | payer OTHER, SELFPAY ==
[2023-02-20 10:35] LABS: Fibrinogen 408 mg/dl (203-444)
[2023-02-20 10:45] LABS: D-Dimer Quantitative (DVT/PE) 0.42 FEU/ug/m (0.27-0.49)
== END 2023-02-20 23:59 | disposition home or self-care (01) ==
LOC: LAB 09:49
PROVIDERS: PCP Family Medicine; Referring Provider Family Medicine; Visit Provider Family Medicine
DX: I82.401 Acute embolism and thrombosis of unspecified deep veins of right lower extremity (principal)
CPT/HCPCS: 36415; 85379; 85384

== ENCOUNTER → 2023-03-15 | Outpatient (CLI) | payer OTHER, SELFPAY | END | disposition home or self-care (01) | LOC: SL 20:29 | PROVIDERS: PCP Family Medicine; Referring Provider Nurse Practitioner Acute Care; Visit Provider Nurse Practitioner Acute Care | DX: G47.10 Hypersomnia, unspecified (principal) | CPT/HCPCS: 95811 ==

== ENCOUNTER → 2023-04-11 | Outpatient (CLI) | payer OTHER, SELFPAY ==
[2023-04-11 12:38] LABS: Absolute Lymphocyte Count 1.62 X10^3/uL (0.83-4.51); Absolute Neutrophil Count 6.7 X10^3/uL (2.0-7.7); Basophil# 0.07 X10^3/uL; Basophil% 0.7 % (0-1); Eosinophil# 0.15 X10^3/uL; Eosinophils% 1.6 % (0-5); Hematocrit 40.9 % (37-47); Hemoglobin 13.2 g/dL (12.0-15.0); Lymphocyte # 1.62 X10^3/ul (0.83-4.51); Lymphocyte % 17.3 % (19-41); Mean Corp Hgb Conc 32.3 g/dL (32-36); Mean Corpuscular Hgb 28.3 pg (27.0-32.0); Mean Corpuscular Volume 87.8 fL (81-99); Mean Platelet Vol. 9.7 fl (6.2-12.0); Monocyte# 0.74 X10^3/uL; Monocyte% 7.9 % (0-10); NRBC Flagged by Analyzer 0 % (0-5); Neutrophil # 6.74 X10^3/uL (2.7-7.7); Neutrophil % 72.3 % (47-70); Platelet Count 269 K/mm3 (150-450); RBC Distribution Width CV 14.1 % (11.6-14.6); RBC Distribution Width SD 45.2 fl (35.1-43.9); Red Blood Count 4.66 M/mm3 (4.2-5.4); White Blood Count 9.3 K/mm3 (4.4-11.0)
[2023-04-11 12:59] LABS: ALB/GLOB Ratio 0.8 RATIO (0.9-2.4); AST(SGOT) 32 U/L (15-37); Alanine Aminotransfer ALT/SGPT 29 U/L (13-56); Albumin, Serum 3.4 g/dL (3.2-5.0); Alkaline Phosphatase 72 U/L (45-117); Anion Gap 6 (5-15); BUN 12 mg/dL (7-18); BUN/Creat Ratio 12.7 RATIO (10-20); Calcium,Total 8.8 mg/dL (8.5-10.1); Chloride 108 mmol/L (98-107); Creatinine, Serum 0.94 mg/dL (0.55-1.02); EST Glomerular Filtration Rate 67 mL/min (>60); Est Glom Filt Rate - Afr Amer 81 mL/min (>60); Globulin 4.2 g/dL (2.2-4.2); Glucose 115 mg/dL (74-106); Potassium 3.6 mmol/L (3.5-5.1); Protein, Total 7.6 g/dL (6.4-8.2); Sodium Level 139 mmol/L (136-145); Thyroid Stim Hormone (TSH) 4.37 uIU/mL (0.358-3.74)
[2023-04-11 13:08] LABS: Erythrocyte Sedimentation Rate 36 mm/hr (0-30)
== END | disposition home or self-care (01) ==
LOC: MFPLAB 11:08
PROVIDERS: PCP Family Medicine; Visit Provider Family Medicine
DX: R19.7 Diarrhea, unspecified (principal)
CPT/HCPCS: 36415; 80053; 82274; 84443; 85025; 85652; 86140; 87177; 87209; 87493; 87506

== ENCOUNTER → 2023-04-17 | Outpatient (CLI) | payer OTHER, SELFPAY | END | disposition home or self-care (01) | LOC: SL 08:28 | PROVIDERS: PCP Family Medicine; Visit Provider Nurse Practitioner Acute Care | DX: Z00.00 Encounter for general adult medical examination without abnormal findings (principal) ==

== ENCOUNTER 2023-06-07 07:29 | Day surgery (SDC) | payer OTHER, SELFPAY ==
[2023-06-07] MEDS: Lactated Ringers 1,000 ML 15 ML IV (08:03)
[2023-06-07 08:04] VITALS: BP 134/83; PULSE 83; RESP 16; TEMP 36.6; O2SAT 97; BMI 40.4
--- NOTE | 2023-06-07 08:23 | PCM.HP.STD ---
HPI - General General Date of Admission: 04/19/20 Date of Service: 06/07/23 Chief Complaint: Screening for intestinal cancer HPI Narrative PAO PANG, is a 48 F who presents via open access today for screening colonoscopy. She has not had a prior one. She denies any family history of colon cancer. She otherwise enjoys good health. She is on thyroid supplementation. No history of DVT. [facility] Medical History (Updated 06/04/23 @ 09:36 by Inés Baeza) CPAP (continuous positive airway pressure) dependence Crushing injury of right knee, sequela Deep vein blood clot of right lower extremity Fractured nose history of child history of cyst on wrist Hx pulmonary embolism Leg swelling Migraine Non-smoker Sleep apnea Thyroid disease Wears partial dentures Home Medications levothyroxine 150 mcg tablet 150 mcg PO .every other day 02/25/23 [History Last Taken 06/07/23] levothyroxine 175 mcg tablet 175 mcg PO .every other day 02/25/23 [History Last Taken Unknown] ibuprofen 200 mg tablet 200 mg PO Q6H PRN pain 03/15/23 [History Last Taken Unknown] Allergy/AdvReac Type Severity Reaction Status Date / Time No Known Allergies Allergy Verified 06/07/23 08:02 Family History (Updated 03/15/23 @ 16:14 by Noa Gibson) Father Diabetes Colon polyp Hypothyroidism Myocardial infarction Mother Barretts esophagus Sister Hypothyroidism Grandfather Myocardial infarction Surgical History H/O arthroscopic knee surgery H/O removal of cyst H/O tubal ligation Hx of tonsillectomy S/P ACL repair S/P cervical spinal fusion Social History (Updated 03/15/23 @ 16:15 by Noa Gibson) household members: spouse and children number of children: 3 current occupational status: employed current occupation: [employer] Smoking Status: Never smoker alcohol intake: never what type of physical activity do you participate in: walking and bicycling frequency: daily seatbelt use: always ROS Constitutional Constitutional: Reports systems reviewed and no addt'l complaints, except as documented Cardiovascular Cardiovascular: Denies chest pain Respiratory/Chest Respiratory/Chest: Denies shortness of breath at rest Gastrointestinal Gastrointestinal: Denies abdominal pain, change in bowel habits, hematochezia or melena Vital Signs Vital Signs Vital Signs: 06/07/23 08:04 06/07/23 08:04 Temperature 97.9 F Temperature Source Temporal Pulse Rate 83 Respiratory Rate 16 Respiratory Pattern Normal Blood Pressure 134/83 H Blood Pressure Mean 100 Blood Pressure Source Monitor Blood Pressure Position Semi-Fowlers Blood Pressure Location Left Arm Pulse Ox 97 Oxygen Delivery Method Room Air Weight Weight: 235 lb 14.314 oz Body Mass Index (BMI) 40.4 Physical Exam Const alert, oriented x3 and no apparent distress General Appearance: cooperative and comfortable Eyes General Eye: normal appearance of both eyes Neck General: normal visual inspection Chest inspection of chest normal Resp Effort and Inspection: able to speak in complete sentences and symmetric chest movement Auscultation: clear to auscultation bilaterally Cardio regular rate and regular rhythm GI soft to palpation, non-tender and non-distended Extremity no calf tenderness Neuro oriented x3 Psych thought process normal Assessment & Plan Assessment/Plan (1) Encounter for screening for malignant neoplasm of colon: PLAN: The patient presents via old access today for screening colonoscopy. She notes occasional bright red blood per rectum wonders whether she could have a small tear or hemorrhoid. This is intermittent. She has had an opportunity to ask and have questions answered. We will proceed as noted. Иван Barbosa M.D., F.A.C.S.
[2023-06-07 09:20] VITALS: BP 122/79; BP 134/83; PULSE 82; RESP 18; TEMP 36.6; O2SAT 100
--- NOTE | 2023-06-07 09:20 | OP.CCLET_ITS ---
06/07/2023 Sigifredo Esquivel [address] [place] [address] Re : Colonoscopy procedure for Piedad Cunningham Dear Dr. Esquivel This procedure was performed on Wednesday, June 07, 2023. My impressions and recommendations are as follows: Impressions : - Anal fissure found on digital rectal exam. - Tortuous colon. - No specimens collected. Recommendations : - Discharge patient to home. - Resume previous diet. - Continue present medications. - Repeat colonoscopy in 10 years for screening purposes. - Return to GI office in 2 weeks. Normal posterior anal irritated hemorrhoid area very small sentinel tag with anal fissure. Limited process. We will offer the patient possible consideration for excision of the area with possible cauterization under local anesthesia. My findings are described in the full procedure note, which is enclosed. If I can be of further assistance, please feel free to contact me at Doctor phone number(s): Work: . Sincerely, Иван Barbosa MD 06/07/2023 9:19:53 AM This report has been signed electronically.
--- NOTE | 2023-06-07 09:20 | OP.COLON_ITS ---
Patient Name: Piedad Cunningham Procedure Date: 06/07/2023 8:53 AM Date of : 1975 Age: 48 Procedure: Colonoscopy Indications: Screening for colorectal malignant neoplasm Providers: Иван Barbosa MD Referring MD: Sigifredo Esquivel Medicines: See the Anesthesia note for documentation of the administered medications Patient Profile: Last Colonoscopy: none. The patient's first colonoscopy is today. Complications: No immediate complications. Procedure: Pre-Anesthesia Assessment: - Prior to the procedure, a History and Physical was performed, and patient medications and allergies were reviewed. The patient's tolerance of previous anesthesia was also reviewed. The risks and benefits of the procedure and the sedation options and risks were discussed with the patient. All questions were answered, and informed consent was obtained. Prior Anticoagulants: The patient has taken no anticoagulant or antiplatelet agents. ASA Grade Assessment: II - A patient with mild systemic disease. After reviewing the risks and benefits, the patient was deemed in satisfactory condition to undergo the procedure. After I obtained informed consent, the scope was passed under direct vision. Throughout the procedure, the patient's blood pressure, pulse, and oxygen saturations were monitored continuously. The colonoscope was introduced through the anus and advanced to the cecum, identified by appendiceal orifice and ileocecal valve. The colonoscopy was performed without difficulty. The patient tolerated the procedure well. The quality of the bowel preparation was good. The ileocecal valve and the appendiceal orifice were photographed. Scope In: 9:01:37 AM Scope Withdrawal Time 0 hours 5 minutes 25 seconds Scope Out: 9:14:18 AM Total Procedure Duration Time 0 hours 12 minutes 41 seconds Findings: The digital rectal exam findings include anal fissure. The right colon was mildly tortuous. Advancing the scope required using manual pressure. Impression: - Anal fissure found on digital rectal exam. - Tortuous colon. - No specimens collected. Recommendation: - Discharge patient to home. - Resume previous diet. - Continue present medications. - Repeat colonoscopy in 10 years for screening purposes. - Return to GI office in 2 weeks. Normal posterior anal irritated hemorrhoid area very small sentinel tag with anal fissure. Limited process. We will offer the patient possible consideration for excision of the area with possible cauterization under local anesthesia. Procedure Code(s): --- Professional --- 17084, Colonoscopy, flexible; diagnostic, including collection of specimen(s) by brushing or washing, when performed (separate procedure) Diagnosis Code(s): --- Professional --- Z12.11, Encounter for screening for malignant neoplasm of colon K60.2, Anal fissure, unspecified Q43.8, Other specified congenital malformations of intestine CPT copyright 2021 [employer]. All rights reserved. The codes documented in this report are preliminary and upon criminal justice instructor review may be revised to meet current compliance requirements. Иван Barbosa MD 06/07/2023 9:19:53 AM This report has been signed electronically. Number of Addenda: 0 Note Initiated On: 06/07/2023 8:53 AM
[2023-06-07 09:25] VITALS: BP 127/64; BP 134/83; PULSE 80; RESP 18; O2SAT 100
[2023-06-07 09:30] VITALS: BP 125/79; BP 134/83; PULSE 68; RESP 18; O2SAT 100
[2023-06-07 09:33] VITALS: BP 134/83; BP 138/100; PULSE 74; RESP 18; TEMP 37.2; O2SAT 100
[2023-06-07 10:16] VITALS: BP 134/83
== END 2023-06-07 10:10 | disposition home or self-care (01) ==
LOC: EN 07:31 → AC 07:31
PROVIDERS: PCP Family Medicine; Referring Provider Family Medicine; Visit Provider Surgery
PROC: 0DJD8ZZ Inspection of Lower Intestinal Tract, Via Natural or Artificial Opening Endoscopic (ICD-10-PCS; CPT 45378; principal; 2023-06-07 08:25)
DX: Z12.11 Encounter for screening for malignant neoplasm of colon (principal); Z68.41 Body mass index [BMI] 40.0-44.9, adult; K60.2 Anal fissure, unspecified; Q43.8 Other specified congenital malformations of intestine; Z79.890 Hormone replacement therapy; E66.9 Obesity, unspecified; E03.9 Hypothyroidism, unspecified
CPT/HCPCS: 45378; J7120; J2405

== ENCOUNTER → 2023-06-20 | Outpatient (CLI) | payer OTHER, SELFPAY ==
[2023-06-20 10:51] LABS: T4 Free Direct 1.06 ng/dL (0.76-1.46); Thyroid Stim Hormone (TSH) 2.98 uIU/mL (0.358-3.74)
== END | disposition home or self-care (01) ==
LOC: LAB 09:30
PROVIDERS: PCP Family Medicine; Referring Provider Family Medicine; Visit Provider Family Medicine
DX: E03.9 Hypothyroidism, unspecified (principal)
CPT/HCPCS: 36415; 84439; 84443

== ENCOUNTER 2023-07-08 05:51 | Day surgery (SDC) | payer OTHER, SELFPAY ==
[2023-07-08] VITALS (8 sets, daily range): BP systolic 122–155; BP diastolic 77–99; PULSE 73–88; RESP 16; TEMP 36.6–37.2; O2SAT 96–98; BMI 40.8
[2023-07-08] MEDS: Lactated Ringers 1,000 ML 15 ML IV (06:49)
--- NOTE | 2023-07-08 07:01 | PCM.HP.BLA ---
History and Physical Date of Admission: 07/08/23 Chief Complaint: excision of anal tag Is patient in pain?: No Allergies No Known Allergies Allergy (Verified 06/18/23 13:01) Medications levothyroxine 150 mcg tablet 150 mcg PO .every other day 02/25/23 [History Confirmed 06/18/23] levothyroxine 175 mcg tablet 175 mcg PO .every other day 02/25/23 [History Confirmed 06/18/23] ibuprofen 200 mg tablet 200 mg PO Q6H PRN pain 03/15/23 [History Confirmed 06/18/23] PFSH Medical History CPAP (continuous positive airway pressure) dependence Crushing injury of right knee, sequela Deep vein blood clot of right lower extremity Fractured nose history of child history of cyst on wrist Hx pulmonary embolism Leg swelling Migraine Non-smoker Sleep apnea Thyroid disease Wears partial dentures Surgical History H/O arthroscopic knee surgery H/O removal of cyst H/O tubal ligation Hx of tonsillectomy S/P ACL repair S/P cervical spinal fusion Family History (Updated 03/15/23 @ 16:14 by Noa Gibson) Father Diabetes Colon polyp Hypothyroidism Myocardial infarctionMother Barretts esophagusSister HypothyroidismGrandfather Myocardial infarction Social History (Updated 03/15/23 @ 16:15 by Noa Gibson) household members: spouse and children number of children: 3 current occupational status: employed current occupation: [employer] Smoking Status: Never smoker alcohol intake: never what type of physical activity do you participate in: walking and bicycling frequency: daily seatbelt use: always HPI HPI HPI: 48-year-old female. She has been having rectal bleeding. On June 07, 2023 I performed a colonoscopy. This felt to be a superficial posterior anal fissure/tag. This appeared to be a limited process that I thought I could excise under local anesthesia in the office. My plan was to remove this in the office today. However after attempting to provide exposure realized this was not going to work. We therefore rescheduled for operative removal of the area. Exam Const General: cooperative and comfortable HENMT Head: normal to inspection Eyes General: appearance normal, both eyes and all related structures Neck Neck: normal visual inspection Resp Effort & Inspection: normal respiratory effort Auscultation: clear to auscultation bilaterally Cardio Rate: regular rate Rhythm: regular rhythm GI Inspection: normal to inspection Palpation: soft and no hepatosplenomegaly Other: Posterior anus appears to have an anal tag possibly localized fissure. Musc Cervical Spine: normal cervical lordosis Skin General: no rashes or lesions noted Assessment and Plan Assessment and Plan (1) Anal fissure: Status: Acute Plan: I am not able to get adequate exposure in the office to excise this. I will plan an operative inspection of this area with planned excision possible primary care repair or cauterization. If a fistula is identified then treatment is appropriate. She is aware of the technique, benefit, risk, alternatives. She has had an opportunity ask and have questions answered. We will schedule procedure at her discretion. Copy: Dr. Sigifredo Barbosa M.D., F.A.C.S I have examined the patient the following changes are noted: Иван Barbosa M.D., F.A.C.S.
--- NOTE | 2023-07-08 07:03 | DCINST_ITS ---
Discharge Instructions Procedure Rectal Surgery Diet Discharge Diet: No restrictions Activity Discharge Activity: Return to Normal Activity and May Not Drive (while you are taking narcotic pain medications. Do not drive, work with heavy equipment or s ign legal documents for 24 hours after your surgery.) Additional Activity Instructions:: Do not drive or work with heavy equipment or sign legal documents for 24 hours. Be aware that pain medications may cause nausea. You should typically eat light foods as you take your pain medications. Pain medications may also cause constipation, if you have difficulty with this please discuss with your doctor. Dressing / Incision Additional Dressing/Incision Instructions:: Leave the operative bandage on for 2 days. If a local anesthetic plug was placed in the anal area, try not to expel for 24-[address] dibucaine ointment on the perianal area as needed. Sitz baths twice daily and after bowel movements. Follow Up Care Please Follow Up With: Иван Barbosa MD When: Call [phone] to set up appointment to be seen 7 days after surgery. Test Results: Test results from this visit will be discussed in further detail at your follow- up appointment, if applicable. Discharge Plan Admission Primary Reason for Your Visit: Posterior anal fissure Attending Provider: Иван Barbosa Primary Care Provider: Sigifredo Esquivel Discharge Orders/Prescriptions Prescriptions: Continued levothyroxine 175 mcg tablet 175 mcg PO .every other day levothyroxine 150 mcg tablet 150 mcg PO .every other day Rx Instructions: alternate with the 150mcg dose ibuprofen 200 mg tablet 200 mg PO Q6H PRN (Reason: pain) Referrals / Follow Up: Sigifredo Esquivel MD [Primary Care Provider] - Disposition Disposition (needs filled in before D/C Order can be placed): Home, Self Care
--- NOTE | 2023-07-08 07:05 | DCINST_ITS ---
Discharge Instructions Procedure Rectal Surgery Diet Discharge Diet: No restrictions Activity Discharge Activity: Return to Normal Activity and May Not Drive (while you are taking narcotic pain medications. Do not drive, work with heavy equipment or s ign legal documents for 24 hours after your surgery.) Lifting Restrictions: No lifting more than 10 pounds Additional Activity Instructions:: Do not drive or work with heavy equipment or sign legal documents for 24 hours. Be aware that pain medications may cause nausea. You should typically eat light foods as you take your pain medications. Pain medications may also cause constipation, if you have difficulty with this please discuss with your doctor. Dressing / Incision Additional Dressing/Incision Instructions:: Leave the operative bandage on for 2 days. If a local anesthetic plug was placed in the anal area, try not to expel for 24-[address] dibucaine ointment on the perianal area as needed. Sitz baths twice daily and after bowel movements. Light diet. Advance as tolerated. Try to avoid constipating foods like cheese Please take a daily fiber supplement like Metamucil or Citrucel or Benefiber or FiberCon. You may use mineral oil 30 cc in juice or food daily to assist with bowel function Alternate acetaminophen with NSAID like ibuprofen for discomfort Use sits baths or showers or wipes to maintain good hygiene Follow Up Care Please Follow Up With: Иван Barbosa MD When: Call [phone] to set up appointment to be seen 3 weeks after surgery. Test Results: Test results from this visit will be discussed in further detail at your follow- up appointment, if applicable. Discharge Plan Admission Primary Reason for Your Visit: Posterior anal fissure Attending Provider: Иван Barbosa Primary Care Provider: Sigifredo Esquivel Discharge Orders/Prescriptions Prescriptions: Continued levothyroxine 175 mcg tablet 175 mcg PO .every other day levothyroxine 150 mcg tablet 150 mcg PO .every other day Rx Instructions: alternate with the 150mcg dose ibuprofen 200 mg tablet 200 mg PO Q6H PRN (Reason: pain) Referrals / Follow Up: Sigifredo Esquivel MD [Primary Care Provider] - Disposition Disposition (needs filled in before D/C Order can be placed): Home, Self Care
[2023-07-08] MEDS: Cefotetan 2 GM in 0.9% NS 100 ML IV (07:20)
--- NOTE | 2023-07-08 07:30 | FIS_PTH ---
PATIENT: PAO PANG LOC: [facility] [place] U#:[id number] AGE/SX: 48/F ROOM: RE07/08/[address]: Dr. Иван Barbosa MD : 1975 BED: DIS: 07/08/2023 SPEC #: [id number] RECD: 07/08/23 10:13 STATUS: TERESA GRANGER #: [id number] MERCEDES: 07/08/23 07:[address]: Иван Barbosa DEPT: SURGICAL PATHOLOGY RECD BY: Tarah Chambers ENTERED: 07/08/23 11:21 SP TYPE: FISSURE OTHR DR: Dr. Sigifredo Esquivel MD Tissues: Anal region Procedures: Surgery Specimen Level IV HEADER OPERATION: Anal fissurectomy PRE-OP DIAGNOSIS: Anal fissure TISSUE SUBMITTED: Anal fissure MICROSCOPIC DIAGNOSIS Anal fissure, fissurectomy: A piece of squamous mucosa with chronic inflammation. Dilated and congested blood vessels. SJ:swapnil 07/09/2023 MICROSCOPIC DESCRIPTION Slides are reviewed. GROSS DESCRIPTION Received in fixative is one container labeled with the patient's name and designated anal fissure. The specimen consists of a piece of hill mucosal tissue measuring 1.7 x 1.5 x 0.3 cm. The specimen is bisected and submitted entirely in one cassette. / JOSE CARLOS:swapnil 07/08/2023 TC:5 CPT: 07642
[2023-07-08] MEDS: Bupivacaine Mpf 0.5% 30 ML VIAL (07:45)
[2023-07-08] MEDS: BUPIVACAINE LIPOSOME/PF 20 ML VIAL OPERA.SITE (07:45)
--- NOTE | 2023-07-08 07:53 | PCM.OPRPT ---
Report of Operation Date of Procedure: 07/08/23 Pre-Operative Diagnosis: Posterior anal fissure Post-Operative Diagnosis: Posterior anal fissure/hypertrophic papilla Surgery/Procedure Performed:: Posterior anal fissurectomy Description of Surgical Findings:: Timeout informed consent was obtained. 48-year-old female was taken to the operating she was placed prone on the table underwent monitored anesthesia care cefotetan 2 g were given intravenously the perianal area anesthetized with 20 cc of Exparel diluted with 20 cc of 0.5% Marcaine. Local was instilled as local anesthetic completely circumferential around the anus. Speculum was inserted and the posteriorly there was a palpable firm area that I thought was a sentinel tag. There appeared to be an inflamed internal papilla. I did index a elliptical excision of this irritated tissue. Then placed an apical [id number] suture of 2-0 chromic for hemostasis and then approximated the mucosa with a running 2-0 chromic. The sphincter mechanism was easily identified and carefully protected. Palpation inspection revealed some internal hemorrhoidal disease but this did not appear to be the component of her problem. Dibucaine ointment and Vaseline gauze was inserted followed by cover dressing of ABD. She tolerated the procedure well taken back to the recovery room in satisfied condition without apparent complication. Specimen posterior anal fissure hypertrophic patella. Drains none. Blood loss minimal. Иван Barbosa M.D., F.A.C.S. Surgeon: Иван Barbosa Type of Anesthesia: Local MAC Anesthesiologist: Mehrdad Fam
== END 2023-07-08 09:39 | disposition home or self-care (01) ==
LOC: SDC 05:52 → AC 05:53
PROVIDERS: PCP Family Medicine; Referring Provider Surgery; Visit Provider Surgery
PROC: (CPT 46200; principal; 2023-07-08 07:15)
DX: K60.2 Anal fissure, unspecified (principal); K62.89 Other specified diseases of anus and rectum; K62.5 Hemorrhage of anus and rectum; K64.4 Residual hemorrhoidal skin tags; Z79.890 Hormone replacement therapy
CPT/HCPCS: 46200; 00902; 88304; 88305; J7120; J2405

== ENCOUNTER → 2023-07-25 | Outpatient (CLI) | payer OTHER, SELFPAY ==
--- NOTE | 2023-07-25 13:24 | BI_ITS ---
MAMMOGRAPHY - BILATERAL SCREENING REASON FOR EXAM: Female, 48 years old. Routine annual screening examination. PERTINENT HISTORY: Non-contributory. TECHNIQUE: Digital bilateral breast anand (3D mammographic acquisition) in the CC and MLO projections. 2-D mediolateral oblique (MLO) and craniocaudad (CC) views of both breasts were obtained. CAD: Full Field Digital Mammography with Computer Added Detection was performed. COMPARISON: Comparison is made with prior study dated April 24, 2022 and July 18, 2021. FINDINGS: Breast Composition: The breasts are almost entirely fatty. There are no dominant masses or suspicious calcifications. No other significant abnormalities are identified. There has been no significant change since the prior study. BI/SCRN MAMM (CAD)W/ANAND BILAT IMPRESSION: Stable bilateral screening mammogram. Yearly follow-up mammogram recommended. (A) ASSESSMENT CATEGORY: BIRADS Category 1: Negative. A letter regarding these results will be sent to the patient by the facility within 30 days. Approximately 10% of breast cancers are not detected by mammography. A normal mammogram should not delay biopsy of a clinically suspicious abnormality. [id number] Electronically Signed: Oliver Oneil MD at 14:42 EST ,
== END | disposition home or self-care (01) ==
LOC: OPBI 13:23
PROVIDERS: PCP Family Medicine; Referring Provider Family Medicine; Visit Provider Family Medicine
DX: Z12.31 Encounter for screening mammogram for malignant neoplasm of breast (principal)
CPT/HCPCS: 77063; 77067

== ENCOUNTER → 2023-08-15 | Outpatient (CLI) | payer OTHER, SELFPAY ==
--- OUTSIDE RECORDS SUMMARY | 2023-08-15 17:11 | XMS RPT_ITS | CCD ---
Author Name Unknown Address [address] [place] [address] Organization [facility] Care Team Providers Care Environmental Field Services Technician Name Role Phone Radha Ferro DC Unavailable Jerad Valdez Unavailable Unavailable PROVIDER, UNKNOWN Unavailable Unavailable No, PCP Unavailable Unavailable Josesito ROBLES, Eleno Mendoza Unavailable [phone] Allergies Allergy Classification Reported Allergen(s) Allergy Type Date of Onset Reaction(s) Facility (1 source) PLANT POLLENS; Translations: [PLANT POLLENS] allergy to substance [facility] Work Phone: Medications Current Medications Medication Drug Class(es) Dates Sig (Normalized) Sig (Original) apixaban 2.5 mg oral tablet (1 source) Factor Xa Inhibitor Start: 10-18-2021 End: 10-30-2021 take 1 tablet by mouth twice daily ELIQUIS 2.5 MG TABS Take 1 tablet by mouth twice a day apixaban [id number] Pelon Mercer MD Completed/Discontinued Medications Medication Drug Class(es) Dates Sig (Normalized) Sig (Original) azithromycin 250 mg oral tablet (6 sources) Macrolide Antimicrobial Start: 10-25-2010 End: 10-30-2010 ZITHROMAX 250 MG TABS Take two (2 ) tablets day one, then one (1) tablet a day for four (4) more days AZITHROMYCIN [id number] Carmen Mercado PA-C levothyroxine sodium 0.125 mg oral tablet (7 sources) l-Thyroxine Start: 03-26-2018 take 1 tablet by mouth once daily SYNTHROID 125 MCG TABS 1 tablet by mouth once a day levothyroxine [id number] Rivas Problems Active Problems Problem Classification Problem Date Documented Da te Episodic/Chronic Diseases of white blood cells (2 sources) Elevated white blood cell count, unspecified; Translations: [Elevated white blood cell count, unspecified] Onset: 04-29-2018 Chronic Essential hypertension (2 sources) Essential (primary) hypertension; Translations: [Essential (primary) hypertension] Onset: 04-29-2018 Chronic Joint disorders and dislocations; trauma-related (1 source) Acute meniscal tear, medial; Translations: [Other tear of medial meniscus, current injury, right knee, initial encounter] Onset: 09-14-2021 09-14-2021 Episodic Nonspecific chest pain (2 sources) Chest pain, unspecified; Translations: [Chest pain, unspecified] Onset: 04-29-2018 Episodic Other connective tissue disease (2 sources) Arthrodesis status; Translations: [Arthrodesis status] Onset: 04-29-2018 Episodic Other non-traumatic joint disorders (6 sources) Arthritis of hand; Translations: [Other specific arthropathies, not elsewhere classified, unspecified wrist] Onset: 01-14-2015 01-21-2015 Chronic Pulmonary heart disease (2 sources) Other pulmonary embolism without acute cor pulmonale; Translations: [Other pulmonary embolism without acute cor pulmonale] Onset: 04-29-2018 Episodic Spondylosis; intervertebral disc disorders; other back problems (1 source) Herniation of nucleus pulposus; Translations: [Other cervical disc displacement, unspecified cervical region] Onset: 03-27-2018 03-27-2018 Chronic Thyroid disorders (8 sources) Hypothyroidism; Translations: [Hypothyroidism, unspecified] Onset: 04-29-2018 10-25-2010 Chronic Past or Other Problems Problem Classification Problem Date Documented Da te Episodic/Chronic Acute bronchitis (6 sources) Acute bronchitis; Translations: [Acute bronchitis, unspecified] Onset: 10-25-2010 Resolved: 11-24-2010 10-25-2010 Episodic Other bone disease and musculoskeletal deformities (12 sources) Segmental and somatic dysfunction; Translations: [Segmental and somatic dysfunction of cervical region] Onset: 11-01-2016 11-01-2016 Episodic Other connective tissue disease (12 sources) Ganglion cyst; Translations: [Hand pain] Onset: 12-02-2014 12-09-2014 Episodic Other connective tissue disease (1 source) History of cervical spine fusion; Translations: [Arthrodesis status] Onset: 05-08-2018 05-08-2018 Episodic Other non-traumatic joint disorders (18 sources) Hip pain; 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] Onset: 11-23-2016 11-23-2016 Episodic Other upper respiratory infections (6 sources) Sinusitis; Translations: [Chronic sinusitis, unspecified] Onset: 10-25-2010 10-25-2010 Episodic Spondylosis; intervertebral disc disorders; other back problems (7 sources) Low back pain; Translations: [Spinal stenosis in cervical region] Onset: 11-23-2016 11-23-2016 Episodic Unclassified (1 source) Problem Results Test Name Value Interpretation Reference Range Facil ity Vital Signs Date Time Vital Sign Value Performing Clinician Facility 11-01-2016 14:35-0400 BMI (Body Mass Index) 36.61 kg/m2 Radha Ferro DC [facility] Work Phone: 11-01-2016 14:35-0400 BP Diastolic 61 mm[Hg] Radha Ferro DC [facility] Work Phone: 11-01-2016 14:35-0400 BP Systolic 135 mm[Hg] Radha Ferro DC [facility] Work Phone: 11-01-2016 14:35-0400 Weight 99.79 kg Radha Ferro DC [facility] Work Phone: 12-02-2014 15:27-0400 Height 165.1 cm Radha Ferro DC [facility] Work Phone: 12-02-2014 15:27-0400 Pulse (Heart Rate) 72 /min Radha Ferro DC [facility] Work Phone: 10-25-2010 17:25-0400 Body Temperature 97.8 [degF] Radha Hainessi DC [facility] Work Phone: 10-25-2010 17:25-0400 Pulse Oximetry 99 % Radha Ferro DC [facility] Work Phone: 10-25-2010 17:25-0400 Respiratory Rate 18 /min Rdahaandrew Ferro DC [facility] Work Phone: NEGATED: Highlighted [id number] 09:59-0400 Body height 165.1 cm Quincy Hernandez OT-C [facility] Work Phone: NEGATED: Highlighted [id number] 09:59-0400 Body height 165 cm Quincy Hernandez OT-C [facility] Work Phone: NEGATED: Highlighted [id number] 09:59-0400 Body mass index (BMI) [Ratio] 39.41 kg/m2 Quincy Hernandez OT-C [facility] Work Phone: NEGATED: Highlighted [id number] 09:59-0400 Body weight 107.05 kg Quincy Hernandez OT-C [facility] Work Phone: NEGATED: Highlighted [id number] 09:59-0400 Body weight 107 kg Quincy Hernandez OT-C [facility] Work Phone: Encounters Encounter Date Encounter Type Care Provider Facility Start: 04-29-2018 Patient encounter Jerad Valdez [facility] Procedures Date Procedure Procedure Detail Performing Clinician Start: 10-26-2021 End: 10-26-2021 BP scrn no perf at interval Eleno Bellamy PA-C Work Phone: Start: 10-26-2021 End: 10-26-2021 Calc BMI abv up surinder f/u Eleno Mendoza Mitan PA-C Work Phone: Start: 10-26-2021 End: 10-26-2021 Current tobacco non-user cad cap copd pv dm Eleno Mendoza Souqalmalan PA-C Work Phone: Start: 10-26-2021 End: 10-26-2021 Docrev cur meds by bobbi Mendoza Mitan PA-C Work Phone: Start: 10-26-2021 History of operative procedure on knee S/P arthroscopic surgery of right knee Quincy Hernandez OT-C Start: 10-26-2021 End: 10-26-2021 Pain doc pos and plan Eleno Hwang Work Phone: Start: 10-26-2021 End: 10-26-2021 Patient encounter procedure Eleno Mendoza Josesito ROBLES Work Phone: Start: 02-28-2017 End: 02-28-2017 Chiropract manj 1-2 regions Radha B Dossi DC Work Phone: Start: 02-28-2017 End: 02-28-2017 Electric stimulation therapy Radha B Dossi DC Work Phone: Start: 02-25-2017 End: 02-26-2017 Chiropract manj 1-2 regions Radha B Dossi DC Work Phone: Start: 02-25-2017 End: 02-26-2017 Electric stimulation therapy Radha B Dossi DC Work Phone: Start: 01-17-2017 End: 01-21-2017 Chiropract manj 1-2 regions Radha B Dossi DC Work Phone: Start: 01-17-2017 End: 01-21-2017 Electric stimulation therapy Radha B Dossi DC Work Phone: Start: 11-01-2016 End: 11-01-2016 Chiropract manj 1-2 regions Radha B Dossi DC Work Phone: Start: 11-01-2016 End: 11-01-2016 Electric stimulation therapy Radha B Dossi DC Work Phone: NEGATED: Highlighted rowStart: 10-26-2021 End: 10-26-2021 Documentation of current medications Quincy PATTON Plan of Treatment Date Care Activity Detail Author Start: 10-26-2021 End: 10-26-2021 Patient encounter procedure Appointment [facility] Work Phone: Start: 02-28-2017 End: 02-28-2017 Appointment Appointment [facility] Work Phone: Start: 11-28-2016 End: 11-28-2016 Physical Therapy General [facility], [address] [place] [address], [id number] [facility] Work Phone: Start: 11-23-2016 End: 11-23-2016 Mri joint of lwr extr w/dye MRI Joint Lower Extremity with Contrast [facility] Work Phone: Start: 11-23-2016 End: 11-23-2016 X-ray exam l-s spine bending X-Ray, Spine, Lumbar, complete with bending views [facility] Work Phone: Start: 11-23-2016 End: 11-23-2016 X-Ray, Hip, unilateral, with pelvis; 2-3 views X-Ray, Hip, unilateral, with pelvis; 2-3 views [facility] Work Phone: Start: 02-08-2015 End: 02-16-2015 Office/outpatient visit, est, level 3 40016 Ofc Vst, Est Level III [facility] Work Phone: Start: 02-08-2015 End: 02-16-2015 Postop follow-up visit Post Operative Visit [facility] Work Phone: Start: 12-02-2014 End: 12-02-2014 X-ray exam of hand X-Ray, Hand [facility] Work Phone: Payers Date Payer Category Payer Policy ID Unknown Social History Date Type Detail Facility Start: 10-26-2021 End: 10-26-2021 Assertion Unknown if ever smoked [facility] Work Phone: NEGATED: Highlighted rowStart: 10-26-2021 End: 10-26-2021 Employment detail Employment detail [facility] Work Phone: Evaluation note Note Date & Type Note Facility Evaluation note There may be informa tion available, but it has not been provided by the sender. [facility] Work Phone: Instructions Note Date & Type Note Facility [facility] Work Phone: Summary Purpose Family History No Family History Records FoundThere may be information available, but it has not been provided by the sender. Advance Directives No Advanced Directives Records FoundThere may be information available, but it has not been provided by the sender. Chief Complaint Chief Complaint Description Start Date right knee post Right knee a rthroscopic partial medial meniscectomy on 10/18/2021 Preliminary chief co mplaint data, not yet signed by the author as of Additional Source Comments INFORMATION SOURCE (unrecogn ized section and content) Reason for Visit (unrecogniz ed section and content) FOR RECORDS PERTAINING TO PATIENTS WHO ARE OR HAVE BEEN ENROLLED IN A CHEMICAL DEPENDENCY/SUBSTANCEABUSE PROGRAM, SOME INFORMATION MAY BE OMITTED. This clinical summary was aggregated from multiple sources. Caution should be exercised in using it in the provision of clinical care. This summary normalizes information from multiple sources, and as a consequence, information in this document may materially change the coding, format and clinical context of patient data. In addition, data may be omitted in some cases. CLINICAL DECISIONS SHOULD BE BASED ON THE PRIMARY CLINICAL RECORDS. [facility]. provides no warranty or guarantee of the accuracy or completeness of information in this document.
[2023-08-20 17:07] LABS: HPV APTIMA, High Risk Negative (Negative)
== END | disposition home or self-care (01) ==
PROVIDERS: PCP Family Medicine; Visit Provider Nurse Practitioner Women's Health
DX: Z12.4 Encounter for screening for malignant neoplasm of cervix (principal)
CPT/HCPCS: 87624; 88175; G0145

== ENCOUNTER 2024-01-30 16:00 | Outpatient (RCR) | payer OTHER, SELFPAY ==
--- NOTE | 2024-01-08 18:18 | HP.OTEVAL ---
Patient's Visit Information Visit Information Visit Information: PAO PANG is a 48 year old F, referred to Occupational Therapy by BRENDA Olivarez, with a diagnosis of Left Lateral Epicondylitis M77.12. Date of Evaluation: 01/08/24 Occupational Therapist: Minerva Muse Subjective Subjective: This 48 year old female referred to OT due to dx of lateral epicondylitis. Per pt her pain started end of october early november approx 8-9 weeks ago. having pain along L extensor mass. Possible trigger to pain is multching. writs with L hand predominantly R handed. 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 pt was provided with steriod pack 12/23/23. pt reports helped about 80% however still feels there is swelling in there. started stretches which were painful to complete. Pain L elbow: Current Pain Intensity: 6 Objective Objective/Observation: presents with swelling noted at extensor mass. pain with elbow flexion as well as extension. pt reports an occ lock and freeze of elbow in flexion as well as occ clicking. 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: L middleware solutions architect at 90 55# straight elbow 30# R 80# both directions Lateral Pinch: L 5# R 12# Tripod Pinch: L 8# R 12# Edema Other: L 30.5 cm and RUE 29.5 cm Sensation Sensation Comments: denies Quick DASH-Disab of Arm,Shoulder& Hand Quick DASH Score: 4.5450 Goals Goal:: pt will improve L middleware solutions architect strength equal to non affected UE (RUE 80) in order to complete day to day functional tasks pt will improve L lateral pinch strength equal to non affected UE (RUE 12) in order to complete day to day functional tasks pt will improve L tripod pinch strength equal to non affected UE (RUE 12) in order to complete day to day functional tasks Goal:: pt will improve L elbow flexion to 170 degrees or more in order to improve day to day activities pt will improve L elbow extension to 0 degrees in order to improve day to day activities pt will improve L forearm supination equal to non affected UE (R 75) in order to improve day to day activities Goal:: pt will decrease L elbow pain to 2/10 or less during movements for improved I in functional tasks Goal:: pt will verbalize/ demonstrate 100% accuracy in L UE positioning during functional tasks in order to assure reduction of pain and improved function Goal:: pt will improve quick dash score by 2 points in order to improve overall use of LUE Goal:: pt will demonstrate 100% adherence to bracing of L UE for pain management by third session Rehabilitation General Assessment: This 48 year old female presents with dx of lateral epicondylitis. Pt reporting pain along extensor mass as well as medial dorsal portion of tricep. Pt states pain started approx 8-10 weeks ago. pt seen at urgent clinic 12/20/23 and started steriod pack 12/23/23. pt states this helped some but still has pain and some swelling. pt is limited in daily functional use and has pain during all functional tasks including work. This pt would benefit from OT services in order to decrease pain swelling training in positioning as well as stretch and strengthening once appropriate. Anticipated Interventions Anticipated Interventions: A/AAROM/PROM, Strengthening, Edema Control, Triggerpoint Release, Modalities, Joint Protection/Energy Conservation, Education re assistive Equipment, Education re Diagnosis and Home Program Visit Plan Frequency: 2x /Week Duration: 6 Weeks General Plan: modalities trigger point massage progression to stretch strengthening bracing TEXT: Thank you for the opportunity to evaluate your patient. For Medicare and Medicare HMO plans, please review the plan of care and approve it. It will need to be FAXED BACK to us at [phone] for Medicare purposes. Please let me know if there are questions or concerns regarding this plan of care. Physician Signature: Date:
--- NOTE | 2024-01-30 17:20 | HP.OTDCSUM ---
Discharge Summary D/C Summary: It has been my pleasure to treat PAO PANG under orders from BRENDA Olivarez, for the diagnosis of Left Lateral Epicondylitis M77.12 for a total of 5 visit(s). Please see the following information for a summary of their discharge status. Overall Improvement % Improvement: 85 Objective Objective/Function: overnight associate strength elbow bent 40 elbow straight 30 pounds pain at rest 0 Goals Patient Goals: Regain Strength, Decrease Pain and Decrease Swelling/Stiffness Goal:: pt will improve L overnight associate strength equal to non affected UE (RUE 80) in order to complete day to day functional tasks 40 at side and 30 extended not met pt will improve L lateral pinch strength equal to non affected UE (RUE 12) in order to complete day to day functional tasks not met pt will improve L tripod pinch strength equal to non affected UE (RUE 12) in order to complete day to day functional tasks not met Goal:: pt will improve L elbow flexion to 170 degrees or more in order to improve day to day activities not met pt will improve L elbow extension to 0 degrees in order to improve day to day activities met pt will improve L forearm supination equal to non affected UE (R 75) in order to improve day to day activities Goal:: pt will decrease L elbow pain to 2/10 or less during movements for improved I in functional tasks met Goal:: pt will verbalize/ demonstrate 100% accuracy in L UE positioning during functional tasks in order to assure reduction of pain and improved function goal met Goal:: pt will improve quick dash score by 2 points in order to improve overall use of LUE Goal:: pt will demonstrate 100% adherence to bracing of L UE for pain management by third session goal met Plan Plan: discharge this date as pt lateral epicondylitis symptoms have resolved pt to go to ortho specialist to consult about pain she is having with elbow extension and flexion with feeling of click at 8/10 pain D/C Information Discharge Comments: pt presents with dx of lateral epicondylitis and has progressed throught phases of lateral epi with no pain at rest pain only with elbow flex and ext with elbow clicking / popping. ed provided on shoulder stretch as well as isometric lateral epi extensor massage, stretches as well as eccentric exercise and pt progresses through with no pain at this time. pt to go to ortho specialist d/c sentence: If there are questions or concerns regarding this patient's occupational therapy, please fell free to call me at [phone]. Thank you for the referral of this patient. Sincerely, Minerva Muse
--- NOTE | 2024-01-30 17:26 | HP.OT.NRP ---
Patient Information Patient Information: PAO PANG was seen in my office for initial evaluation on 01/08/24. The following Plan of Care was established for this patient: POC Established Initial Frequency: 2x /Week Initial Duration: 6 Weeks Plan: discharge this date as pt lateral epicondylitis symptoms have resolved pt to go to ortho specialist to consult about pain she is having with elbow extension and flexion with feeling of click at 8/10 pain Anticipated Interventions Anticipated Interventions: A/AAROM/PROM, Strengthening, Edema Control, Triggerpoint Release, Modalities, Joint Protection/Energy Conservation, Education re assistive Equipment, Education re Diagnosis and Home Program Last Seen Last Seen: This patient was last seen in our office 01/30/24. Pertinent comments regarding their Occupational therapy will appear below: This pt seen for dx of lateral epicondylitis and progressed through POC with relief of symptoms relating to dx. pt progressed through phases now able to perform eccentric strengthening with weights pain free. pt to go see ortho specialist regarding elbow pain felt with flex/ext and a clicking sensation. pt is in agreeance with discharge At this point I will be discontinuing this patient from occupational therapy. I would be happy to see this patient again in the future if found appropriate by the physician. Thank you! Minerva Muse
== END 2024-01-30 19:00 | disposition home or self-care (01) ==
LOC: OT 16:00
PROVIDERS: PCP Family Medicine; Referring Provider Physician Assistant Surgical; Visit Provider Physician Assistant Surgical
DX: M77.12 Lateral epicondylitis, left elbow (principal)
CPT/HCPCS: 97035; 97110; 97140; 97165; 97530

== ENCOUNTER → 2024-02-12 | Outpatient (CLI) | payer OTHER, SELFPAY ==
--- NOTE | 2024-02-12 15:26 | RAD_ITS ---
STUDY: X-RAY - LEFT ELBOW REASON FOR EXAM: Female, 49 years old. pain TECHNIQUE: 4 view(s) of the elbow. COMPARISON: None. FINDINGS: Normal visualized humerus, radius and ulna. Normal radiocapitellar and ulnotrochlear articulations. The soft tissue structures are unremarkable. RAD/Elbow min 3 Views IMPRESSION: Normal x-ray examination of the elbow. Electronically Signed: Slick Mtz MD at 23:52 EDT ,
== END | disposition home or self-care (01) ==
LOC: MTRAD 15:25
PROVIDERS: PCP Family Medicine; Referring Provider Orthopaedic Surgery; Visit Provider Orthopaedic Surgery
DX: M25.522 Pain in left elbow (principal)
CPT/HCPCS: 73080

== ENCOUNTER → 2024-02-28 | Outpatient (CLI) | payer OTHER, SELFPAY ==
[2024-02-28 08:11] LABS: Free T3 1.9 pg/mL (2.18-3.98); T4 Free Direct 1.15 ng/dL (0.76-1.46); Thyroid Stim Hormone (TSH) 0.49 uIU/mL (0.358-3.74)
[2024-03-01 16:07] LABS: Thyroid Stim Immunoglob <0.10 IU/L (0.00-0.55)
== END | disposition home or self-care (01) ==
LOC: LAB 07:13
PROVIDERS: PCP Family Medicine; Referring Provider Family Medicine; Visit Provider Family Medicine
DX: E03.9 Hypothyroidism, unspecified (principal)
CPT/HCPCS: 36415; 84439; 84443; 84445; 84481

== ENCOUNTER → 2024-03-17 | Outpatient (CLI) | payer OTHER, SELFPAY ==
--- NOTE | 2024-03-17 15:36 | MRI_ITS ---
EXAM: MR LEFT UPPER EXTREMITY WITHOUT INTRAVENOUS CONTRAST, ELBOW CLINICAL INDICATION: Elbow pain TECHNIQUE: Multiplanar and multisequence MR images of the left elbow without intravenous contrast. COMPARISON: No relevant prior studies available. FINDINGS: ARTIFACTS: Motion artifact limits assessment. LIGAMENTS: MEDIAL COLLATERAL: Unremarkable. Intact. LATERAL COLLATERAL: Unremarkable. Intact. ANNULAR: Unremarkable. Intact. TENDONS: BICEPS: Unremarkable. Intact. BRACHIALIS: Unremarkable. Intact. TRICEPS: Unremarkable. Intact. COMMON FLEXOR: Normal signal characteristics. COMMON EXTENSOR: Low-grade partial-thickness tear involving the common extensor tendon on a background of moderate tendinosis. MUSCLES: Unremarkable. Normal bulk and signal. FLUID: Unremarkable. No joint effusion. CARTILAGE: Unremarkable. Articular cartilage intact. BONES/JOINTS: Unremarkable. No fracture. No abnormal bone marrow signal. OTHER SOFT TISSUES: Unremarkable. The ulnar nerve is normal in the cubital tunnel. MRI/Upper Ext Joint Only(Routine) IMPRESSION: Low-grade partial-thickness tear involving the common extensor tendon on a background of moderate tendinosis. Electronically Signed: Christiano Low MD at 1:04 EDT ,
== END | disposition home or self-care (01) ==
LOC: MRI 15:35
PROVIDERS: PCP Family Medicine; Referring Provider Orthopaedic Surgery; Visit Provider Orthopaedic Surgery
DX: M77.12 Lateral epicondylitis, left elbow (principal)
CPT/HCPCS: 73221

== ENCOUNTER 2024-03-31 01:42 | Emergency (ER) | payer OTHER, SELFPAY ==
[2024-03-31 01:44] VITALS: BP 154/99; PULSE 104; RESP 22; TEMP 36.5; O2SAT 98; BMI 40.9
--- NOTE | 2024-03-31 01:58 | RAD_ITS ---
EXAM: XR CHEST, 2 VIEWS CLINICAL INDICATION: COUGH TECHNIQUE: Frontal and lateral views of the chest. COMPARISON: Previous chest radiographs of 04/27/2018 and 04/26/2018. FINDINGS: LIMITATIONS: The lateral view is degraded by respiratory motion artifact. LUNGS AND PLEURAL SPACES: No acute pulmonary infiltrates or pleural effusions. The lungs are not hyperinflated. No peribronchial cuffing. No pneumothorax. HEART: Unremarkable. Cardiac silhouette not enlarged. Normal pulmonary vasculature. MEDIASTINUM: Central airways and mediastinal contour are unremarkable. BONES/JOINTS: Previous lower cervical fusion again noted. Midthoracic degenerative spurring. No acute osseous abnormality. SOFT TISSUES: Unremarkable. RAD/Chest PA and Lateral IMPRESSION: No significant interval change. No acute findings in the chest. Electronically Signed: Logan Arvizu MD at 3:26 EDT ,
--- NOTE | 2024-03-31 03:30 | EX.ED.DYSGE1 ---
HPI History of Present Illness Chief Complaint: Cold Sx Informant: patient Narrative Narrative: Patient is a 49-year-old female with past medical history of UZMA as well as hypothyroidism. She states she has had approximately 7 days of congestion sinus pressure sore throat and cough. She reports she went to an urgent care the other day and was diagnosed with a sinus infection and placed on Augmentin. She states has been taking this for 2 days but has not had any symptom improvement. She now feels like it is moving into her lungs. She reports that she has had pneumonia in the past and has concern for this once again and therefore comes in for evaluation [facility] Medical History Wears partial dentures CPAP (continuous positive airway pressure) dependence Sleep apnea Non-smoker Fractured nose Crushing injury of right knee, sequela Hx pulmonary embolism Deep vein blood clot of right lower extremity Migraine Leg swelling Thyroid disease history of cyst on wrist history of child Home Medications ?Medication ?Instructions ?Recorded ?Last Taken ?Type levothyroxine 150 mcg tablet 150 mcg PO .every other day 02/25/23 07/08/23 History levothyroxine 175 mcg tablet 175 mcg PO .every other day 02/25/23 Unknown History ibuprofen 200 mg tablet 200 mg PO Q6H PRN pain 03/15/23 Unknown History [id number] 18 mg-FA 400 1 tab PO DAILY 12/20/23 Unknown History mcg-calcium 500 mg-vit K 50 mcg tablet (Women's Multivitamin) valacyclovir 1 gram tablet 1,000 mg PO TID #21 tabs 02/24/24 Unknown Rx amoxicillin 875 mg-potassium 1 tab PO BID 7 days #14 tabs 03/29/24 Unknown Rx clavulanate 125 mg tablet azelastine 137 mcg (0.1 %) nasal 2 spray intranasal BID #30 mL 03/31/24 Unknown Rx spray codeine 10 mg-guaifenesin 100 mg/5 10 ml PO 4X/DAY PRN cold symptoms 03/31/24 Unknown Rx mL oral liquid (Maxi-Tuss AC) 7 days #280 mL prednisone 20 mg tablet 40 mg (2 x 20 mg) PO DAILY 5 days 03/31/24 Unknown Rx #10 tabs Allergy/AdvReac Type Severity Reaction Status Date / Time No Known Allergies Allergy Verified 03/31/24 01:44 Family History Father Diabetes Colon polyp Hypothyroidism Myocardial infarction Mother Barretts esophagus Sister Hypothyroidism Grandfather Myocardial infarction Surgical History Hx of colonoscopy H/O removal of cyst S/P ACL repair H/O tubal ligation Hx of tonsillectomy H/O arthroscopic knee surgery S/P cervical spinal fusion Social History household members: spouse and children number of children: 3 current occupational status: employed current occupation: [employer] Smoking Status: Never smoker alcohol intake: never what type of physical activity do you participate in: walking and bicycling frequency: daily seatbelt use: always additional social history: - Meet- Self Employed- [employer] ROS ROS ED Constitutional Constitutional ED: Denies chills or fever(s) ENT ENT ED: Reports rhinorrhea and sore throat; Denies ear pain Cardiovascular Cardiovascular: Denies chest pain Respiratory/Chest Respiratory/Chest: Reports cough and dyspnea Gastrointestinal Gastrointestinal: Denies abdominal pain, diarrhea, nausea or vomiting Genitourinary Genitourinary ED: Denies dysuria Musculoskeletal Musculoskeletal: Reports myalgias Integumentary Denies rash Neurologic Neurologic: Reports headache(s) Hematologic/Lymphatic Hematologic/Lymphatic: Denies easy bleeding or easy bruising Allergic/Immunologic Allergic/Immunologic ED: Denies mouth swelling or tongue swelling EXAM Physical Exam Const Vital Signs: 03/31/24 01:44 03/31/24 01:47 Temperature 97.7 F L Temperature Source Oral Pulse Rate 104 H Respiratory Rate 22 H Respiratory Effort Normal Non-Labored Respiratory Pattern Normal Blood Pressure 154/99 H Blood Pressure Mean 117 Pulse Ox 98 Oxygen Delivery Method Room Air Positive well nourished and well developed General Appearance ED: well developed; Negative for pallor HEENT Reports moist mucous membranes HEENT Narrative: No tongue or lip swelling no oral lesions no airway edema or compromise There is cobblestoning noted in the posterior pharynx consistent with sinus drainage without secondary findings to suggest infection Eyes PERRL and EOMs intact bilaterally General Eye ED: Negative for scleral icterus Neck supple Neck Narrative: Positive anterior cervical lymphadenopathy noted No nuchal rigidity or meningeal signs Chest Wall palpation of chest normal Chest Narrative: No bony deformity or crepitance noted Resp normal respiratory effort and clear to auscultation bilaterally Resp Narrative: Breath sounds are diminished throughout but overall clear to auscultation without signs of respiratory distress Cardio regular rate and regular rhythm Extremity normal to inspection Extremity Narrative: No asymmetric edema no pitting edema negative Homans' sign bilaterally Neuro oriented x3, CN's II-XII intact bilaterally and no sensory deficits noted Sensorium / Orientation: alert Motor Exam: strength 5/5 throughout Psych mental status grossly normal Skin no rashes or lesions noted General Skin Exam: Negative for jaundice or pallor MDM MDM MDM Narrative Medical decision making narrative: Patient arrived to the ER hypertensive but otherwise with stable vitals and in no acute distress. Pulse ox was 98% on room air. She has been on Augmentin for 2 days without symptom improvement and her history and exam is most consistent with a viral upper respiratory tract infection. However with concern for pneumonia or pneumothorax I did elect to perform a chest x-ray. We discussed obtaining a viral swab such as COVID but patient reports she did a home test which was negative. Patient could also have potential strep throat although physical exam does not show findings for this but she is also currently on Augmentin which would cover the infection so therefore I feel no need to check for strep at this time. The chest x-ray was obtained and revealed no acute lung pathology indicating patient does have a viral URI. At this time she is not in respiratory distress she is not hypoxic or requiring supplemental oxygen and therefore she is otherwise safe for discharge with symptomatic care History & Record Review Discussion w/independent historian: Patient Radiography Diagnostic Testing: Clinical Impression(s) from Imaging Studies Chest X-Ray 03/31/24 01:58 IMPRESSION: No significant interval change. No acute findings in the chest. Electronically Signed: Logan Arvizu MD at 3:26 EDT , Chest x-ray as interpreted by the emergency medicine physician reveals no acute infiltrate pneumothorax or pleural effusion Discharge Plan Triage Chief Complaint: Cold Sx ED Provider: Christiano Dorado Dx/Rx/DC Orders Clinical Impression: Viral upper respiratory tract infection with cough, Hypothyroidism Instructions: Postural Drainage, ED URI, Viral, No Abx (Adult) Prescriptions: New prednisone 20 mg tablet 40 mg PO DAILY 5 Days Qty: 10 0RF azelastine 137 mcg (0.1 %) spray,non-aerosol 2 spray intranasal BID Qty: 30 0RF Rx Instructions: administer into each nostril codeine-guaifenesin [Maxi-Tuss AC] 10-100 mg/5 mL liquid 10 ml PO 4X/DAY PRN (Reason: cold symptoms) 7 Days Qty: 280 0RF No Action levothyroxine 175 mcg tablet 175 mcg PO .every other day levothyroxine 150 mcg tablet 150 mcg PO .every other day Rx Instructions: alternate with the 150mcg dose ibuprofen 200 mg tablet 200 mg PO Q6H PRN (Reason: pain) Women's Multivitamin 18 mg-400 mcg- 500 mg-50 mcg tablet 1 tab PO DAILY valacyclovir 1 gram tablet 1,000 mg PO TID Qty: 21 0RF amoxicillin-pot clavulanate 875-125 mg tablet 1 tab PO BID 7 Days Qty: 14 0RF Primary Care Provider: Sigifredo Esquivel Referrals: Sigifredo Esquivel MD [Primary Care Provider] - Activity Restrictions/Additional Instructions: Your chest x-ray reveals no pneumonia. Please continue the Augmentin that was prescribed by the urgent care but your history and exam indicate this is most likely viral in nature and will typically take 1821 days to resolve on its own. Use the prescribed medication in the ER to help with symptom control and return to the ER should you have any further concerns Print Language: Luxembourger Disposition Disposition: Home, Self Care
[2024-03-31 03:34] VITALS: BP 134/85; PULSE 85; RESP 18; TEMP 37; O2SAT 95
[2024-03-31] MEDS: predniSONE 20 MG Tablet 40 MG PO (03:37)
--- NOTE | 2024-03-31 03:38 | ED.RN ---
Patient waiting over 30 minutes for medication from pharmacy. Pharmacy informed ED nurses about a system update which is preventing them from sending the medication. Pt. and MD informed.
[2024-03-31 03:43] VITALS: BP 134/85; PULSE 85; RESP 18; O2SAT 95
== END 2024-03-31 03:55 | disposition home or self-care (01) ==
PROVIDERS: Emergency Provider Emergency Medicine; PCP Family Medicine; Visit Provider Emergency Medicine
DX: J06.9 Acute upper respiratory infection, unspecified (principal); E03.9 Hypothyroidism, unspecified; G47.33 Obstructive sleep apnea (adult) (pediatric); Z79.890 Hormone replacement therapy; Z79.899 Other long term (current) drug therapy
CPT/HCPCS: 71046; 99282

== ENCOUNTER → 2024-05-08 | Outpatient (CLI) | payer OTHER, SELFPAY ==
--- NOTE | 2024-05-08 16:36 | US_ITS ---
INDICATION: Pelvic pain EXAMINATION: Ultrasound US Pelvis Non OB Complete With Transvaginal Imaging TECHNIQUE: Transabdominal and transvaginal pelvic ultrasound was performed. Grayscale, spectral waveform, and color flow Doppler evaluation of the adnexa. LMP: April 06, 2024 COMPARISON: No relevant prior comparison study available FINDINGS: UTERUS: The uterus measures 9.3 x 4.4 x 6.0 cm. There is no uterine mass. The myometrium is mildly heterogenous. The endometrial stripe measures 5.5 mm in AP diameter which is within normal limits. There are nabothian cysts present. RIGHT OVARY: 1.7 x 1.6 x 0.9 cm. Non-enlarged, normal echogenicity. There is normal arterial inflow and venous outflow present in the right ovary. LEFT OVARY: 2.0 x 1.7 x 1.4 cm. Non-enlarged, normal echogenicity. There is normal arterial inflow and venous outflow present in the left ovary. FREE FLUID: There is trace free fluid US/Pelvic w/ Transvaginal IMPRESSION: Mildly heterogenous myometrium, may reflect adenomyosis. Electronically Signed: Dorothea Mosher MD at 10:02 EDT ,
== END | disposition home or self-care (01) ==
LOC: US 16:29
PROVIDERS: PCP Family Medicine; Referring Provider Nurse Practitioner Women's Health; Visit Provider Nurse Practitioner Women's Health
DX: R10.2 Pelvic and perineal pain (principal)
CPT/HCPCS: 76830; 76856

== ENCOUNTER → 2024-08-06 | Outpatient (CLI) | payer OTHER, SELFPAY ==
--- NOTE | 2024-08-06 07:53 | BI_ITS ---
MAMMOGRAPHY - BILATERAL SCREENING 3-D TOMOSYNTHESIS REASON FOR EXAM: Female, 49 years old. Routine screening PERTINENT HISTORY: No significant family history. TECHNIQUE: 2-D mammograms and 3-D Tomosynthesis of the breast (s) were performed. CAD was performed. COMPARISON: 07/24/2022 FINDINGS: The breast composition is almost entirely fat. Scattered benign calcifications are seen. No dense spiculated masses or suspicious microcalcifications are identified. No architectural distortion is identified. There is no skin thickening or retraction. There has been no significant change since the prior study. BI/SCRN MAMM (CAD)W/ANAND BILAT IMPRESSION: No mammographic signs of malignancy. Routine yearly mammograms recommended. ASSESSMENT CATEGORY: BIRADS Category 1: Negative. A letter regarding these results will be sent to the patient by the facility within 30 days. FOLLOW UP RECOMMENDATION: Yearly follow up mammogram recommended. (A) Approximately 10% of breast cancers are not detected by mammography. A normal mammogram should not delay biopsy of a clinically suspicious abnormality. Electronically Signed: Anthony Garrett MD at 9:08 EST ,
== END | disposition home or self-care (01) ==
LOC: OPBI 07:53
PROVIDERS: PCP Family Medicine; Referring Provider Nurse Practitioner Women's Health; Visit Provider Nurse Practitioner Women's Health
DX: Z12.31 Encounter for screening mammogram for malignant neoplasm of breast (principal)
CPT/HCPCS: 77063; 77067

== ENCOUNTER 2024-08-15 11:04 | Emergency (ER) | payer OTHER, SELFPAY ==
[2024-08-15 11:05] VITALS: BP 147/80; PULSE 83; RESP 20; TEMP 35.9; O2SAT 99
[2024-08-15 11:07] VITALS: BMI 41.4
--- NOTE | 2024-08-15 11:10 | EX.ED.GENINJ ---
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) Wears partial dentures CPAP (continuous positive airway pressure) dependence Sleep apnea Non-smoker Fractured nose Crushing injury of right knee, sequela Hx pulmonary embolism Deep vein blood clot of right lower extremity Migraine Leg swelling Thyroid disease history of cyst on wrist history of child Home Medications ?Medication ?Instructions ?Recorded ?Last Taken ?Type levothyroxine 150 mcg tablet 150 mcg PO .every other day 02/25/23 08/15/24 History levothyroxine 175 mcg tablet 175 mcg PO .every other day 02/25/23 08/15/24 History cephalexin 500 mg capsule 500 mg PO TID 3 days #9 caps 08/15/24 Unknown Rx Allergy/AdvReac Type Severity Reaction Status Date / Time No Known Allergies Allergy Verified 08/15/24 11:28 Family History (Reviewed 07/06/24 @ 14:17 by Jess Mariano 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, 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) Father Diabetes Colon polyp Hypothyroidism Myocardial infarction Mother Barretts esophagus Sister Hypothyroidism Grandfather Myocardial infarction Surgical History (Reviewed 07/06/24 @ 14:17 by Jess Mariano 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, 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) Hx of colonoscopy H/O removal of cyst S/P ACL repair H/O tubal ligation Hx of tonsillectomy H/O arthroscopic knee surgery S/P cervical spinal fusion Social History (Reviewed 07/06/24 @ 14:17 by Jess Mariano 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, 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) household members: spouse and children number of children: 3 current occupational status: employed current occupation: [employer] Smoking Status: Never smoker alcohol intake: never what type of physical activity do you participate in: walking and bicycling frequency: daily seatbelt use: always additional social history: - Meet- 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 Notes this occurred just prior to arrival as she was trying to remove her oven door to clean it. Denies any foreign bodies. Denies any loss of sensation. Notes she is left-hand dominant. Unknown last tetanus. REVIEW OF SYSTEMS: Pertinent positives: Right thumb wound Pertinent negatives: Loss of movement or sensation PHYSICAL EXAM: Nursing triage notes reviewed, Vital signs reviewed Constitutional: please see mdm Extremities: No edema Neuro: intact 5/5 strength with ok sign (median), intact finger abduction (ulnar) intact wrist extension (radial n). Intact sensation in the radial, ulnar, and median nerve distributions. Skin: Approximately 1 and half centimeter linear laceration noted to the dorsal lateral surface of the first digit of the right hand MEDICAL DECISION MAKING: Chief Complaint: Thumb laceration External records reviewed: Reviewed prior allergies Factors affecting care: history of hypertension Social determinants of health: none History obtained from others: none Consults: none [facility] Narrative: The patient was hemodynamically stable, afebrile and nontoxic-appearing. Exam with laceration as described above The patient suffered lacerations to the right thumb On exam there was no evidence of foreign bodies. There was no evidence of neurovascular injury. Patient had a normal distal vascular exam, and had intact ROM and sensation. There was also no evidence of tendon injury, with normal distal full range of motion, flexion, extension, abduction, abduction. There is no evidence of local joint space involvement at this time. Wound care applied (irrigation and/or local cleansing solution). Laceration repair was then performed please see procedure note. The patient was given signs and symptoms warnings for infection, such as increasing pain, redness, swelling, associated heat, pus or fever. Patient was given instructions for timely follow-up for removal. Patient agreed with the plan of care Procedure: Laceration repair. The procedure was performed by myself. Indication: Wound repair Risks and benefits: risks, benefits and alternatives were discussed Consent: Consent was obtained. Wound Details: 1/2 cm, 1 mm in depth, no foreign bodies or deeper structures involved. [INSERT - Location, length (in cm), depth (in mm), foreign bodies, deep structure involvement) Anesthesia: Topical let, 1% lidocaine (verbal consent obtained from patient). Wound prep: Patient was prepped and draped in the usual sterile fashion. Tetanus: updated today Irrigation Solution: Saline Wound Preparation: Soaked in chlorhexidine, cleansed with chlorhexidine. The wound was explored to its base in a bloodless field. Procedure Description: Placed 5 simple interrupted, 5-0 Chromic Gut sutures with close approximation . Patient tolerated the procedure well with no immediate complications The patient and/or family, caregivers express understanding. The patient and/or family, caregivers agrees with the plan. Shared decision making: I will have a discussion with the patient and or visitors regarding risk/benefits of further testing or admission. They will be made aware of of the risk/benefits inherent in this decision they will be given the opportunity to voice understanding. Total critical care time today provided was at least 0 minutes. This excludes separately billable procedures. Critical care time (if documented) is secondary to the patient having high probability of clinically significant/life threatening deterioration in the patient's condition which required my urgent intervention. Impression: 1. Finger laceration Dispo: Discharge home This note was generated with [employer] dictation software. It may contain incorrect words, spelling, and punctuation that were not noted in review of the chart prior to signing. Discharge Plan Triage Chief Complaint: Laceration ED Provider: Pradip Herndon Dx/Rx/DC Orders Clinical Impression: Finger laceration Instructions: ED Laceration, All Closures Prescriptions: New cephalexin 500 mg capsule 500 mg PO TID 3 Days Qty: 9 0RF No Action levothyroxine 175 mcg tablet 175 mcg PO .every other day levothyroxine 150 mcg tablet 150 mcg PO .every other day Rx Instructions: alternate with the 150mcg dose Primary Care Provider: Sigifredo Esquivel Referrals: Sigifredo Esquivel MD [Primary Care Provider] - Activity Restrictions/Additional Instructions: Thank you for trusting us with your care today! Your laceration was repaired today with absorbable sutures. These should resorb on their own spontaneously and neck 7 to 10 days. You been given a short course of antibiotics to further decrease your risk of developing an infection. Please take antibiotics as prescribed until course is complete. Please keep your wound clean and dry. For the first 48 to 72 hours recommend using peroxide and Neosporin at least once daily for additional cleansing. After the first 48 to 72 hours soap and water should suffice for daily cleansing. Please try to keep your wound covered as this will also decrease risk of infection. Please take Tylenol (2 pills, 650 mg), ibuprofen (2 pills, 400 mg) every 6 hours as needed for pain and fever control. Please return to the emergency department if your symptoms change or worsen. Specifically if you notice increasing pain, redness, white-yellow discharge, fevers, or warmth. These are signs of infection. Please follow with your primary care physician for further outpatient evaluation and management if needed. Print Language: Macedonian Disposition Disposition: Home, Self Care Discharge Date/Time: 08/15/24 12:16
[2024-08-15] MEDS: Lidocaine/Epi/Tetracaine 50 ML 1 APPLIC TOPICAL (11:29)
[2024-08-15] MEDS: Cephalexin 250 MG Capsule 500 MG PO (12:05)
[2024-08-15] MEDS: Diphth,Pertuss(Acell),Tet Vac 0.5 ML Vial IM (12:05)
[2024-08-15 12:14] VITALS: BP 147/80; PULSE 83; RESP 20; TEMP 35.9; O2SAT 99
== END 2024-08-15 12:16 | disposition home or self-care (01) ==
PROVIDERS: Emergency Provider Emergency Medicine; PCP Family Medicine; Visit Provider Emergency Medicine
DX: S61.011A Laceration without foreign body of right thumb without damage to nail, initial encounter (principal); X58.XXXA Exposure to other specified factors, initial encounter; Y93.E9 Activity, other interior property and clothing maintenance; Z23 Encounter for immunization
CPT/HCPCS: 12001; 90715; 99282

== ENCOUNTER → 2024-09-04 | Outpatient (CLI) | payer OTHER, SELFPAY ==
--- NOTE | 2024-09-04 15:40 | RAD_ITS ---
PROCEDURE: FINGER(S) MIN 2 VIEWS REASON FOR EXAM: Trauma TECHNIQUE: Three views right thumb COMPARISON: None FINDINGS: No visible fracture. Normal alignment. Soft tissues are unremarkable. RAD/Finger(s) Min 2 Views IMPRESSION: NEGATIVE FINGER SERIES Reading Location: [facility]
== END | disposition home or self-care (01) ==
LOC: RAD 15:38
PROVIDERS: PCP Family Medicine; Referring Provider Surgery Plastic and Reconstructive Surgery; Visit Provider Surgery Plastic and Reconstructive Surgery
DX: M79.644 Pain in right finger(s) (principal)
CPT/HCPCS: 73140

== ENCOUNTER → 2025-01-13 | Outpatient (CLI) | payer OTHER, SELFPAY ==
--- OUTSIDE RECORDS SUMMARY | 2025-01-13 07:31 | XMS RPT_ITS | CCD ---
Author Organization [facility] Care Team Providers Care Senior Materials Scientist Name Role Phone Dossi Radha BROWNING Unavailable Jerad Valdez Unavailable Unavailable PROVIDER, UNKNOWN Unavailable Unavailable No, PCP Unavailable Unavailable Eleno Bellamy PA-C Unavailable Dr. Sigifredo Esquivel Primary Care Provider Dr. Иван Barbosa Attending Provider [phone] Dr. Sigifredo Esquivel Primary Care Provider Dr. Sigifredo Esquivel Referring Provider [phone] [place] ENDOSCOPY SUPPORT SPECIALIST, ENDOSCOPY SUPPORT SPECIALIST-C Jess Attending Provider Noa Gibson Attending Provider Unavailable Dr. Sigifredo Esquivel Primary Care Provider Dr. Sigifredo Esquivel Referring Provider [place] ENDOSCOPY SUPPORT SPECIALIST, ENDOSCOPY SUPPORT SPECIALIST-C Jess Attending Provider Noa Gibson Attending Provider Unavailable Dr. Иван Barbosa Attending Provider [phone] Dr. Иван Barbosa Other Provider Dr. Eleuterio Diaz Attending Provider [phone] Sigifredo Esquivel Primary Care Provider Dr. Sigifredo Esquivel Referring Provider Dr. Иван Barbosa Referring Provider [phone] Dali ENDOSCOPY SUPPORT SPECIALIST, ENDOSCOPY SUPPORT SPECIALIST-C Ping Attending Provider Ping Mcnally Referring Unavailable Ping Mcnally Attending Unavailable Sigifredo Esquivel Primary Care Unavailable Sigifredo Esquivel Primary Care Unavailable Christiano Dorado Attending Unavailable Esquivel, Sigifredo Primary Care Unavailable Pradip Herndon Attending Unavailable Esquivel, Sigifredo Primary Care Unavailable Esquivel, Sigifredo Referring Unavailable Timothy Aguirre Attending Unavailable Esquivel, Sigifredo Primary Care Unavailable BorrusoItz Attending Unavailable Borruso, Itz Referring Unavailable Esquivel, Sigifredo Attending Unavailable Esquivel, Sigifredo Primary Care Unavailable Esquivel, Sigifredo Referring Unavailable Dali, Ping Referring Unavailable [place] Attending Unavailable Esquivel, Sigifredo Primary Care Unavailable Siska, Иван Attending Unavailable Esquivel, Sigifredo Primary Care Unavailable Siska, Иван Referring Unavailable Esquivel, Sigifredo Primary Care Unavailable Esquivel, Sigifredo Referring Unavailable Ayan Abernathy Attending Unavailable Esquivel, Sigifredo Primary Care Unavailable Esquivel, Sigifredo Referring Unavailable Brian ENDOSCOPY SUPPORT SPECIALISTLewis Attending Unavailable Esquivel, Sigifredo Primary Care Unavailable Jona GUTIERREZ, Timothy Referring Unavailable Timothy Aguirre Attending Unavailable Esquivel, Sigifredo Primary Care Unavailable Assessment, Health Risk Attending Unavaila ble Esquivel, Sigifredo Primary Care Unavailable Borruso, Itz Referring Unavailable Valso, Itz Attending Unavailable Esquivel, Sigifredo Referring Unavailable [place] Webster[place]ing Attending Unavailable Esquivel, Sigifredo Primary Care Unavailable Esquivel, Sigifredo Referring Unavailable Jess Mariano NP Attending Unavailable Esquivel, Sigifredo Primary Care Unavailable Siska, Иван Attending Unavailable Esquivel, Sigifredo Primary Care Unavailable Esquivel, Sigifredo Referring Unavailable Esquivel, Sigifredo Primary Care Unavailable Esquivel, Sigifredo Referring Unavailable Gianna, Itz Attending Unavailable Esquivel, Sigifredo Primary Care Unavailable Esquivel, Sigifredo Referring Unavailable Timothy Aguirre Attending Unavailable Siska, Иван Attending Unavailable Esquivel, Sigifredo Referring Unavailable Esquivel, Sigifredo Primary Care Unavailable Siska, Иван Attending Unavailable Esquivel, Sigifredo Referring Unavailable Esquivel, Sigifredo Primary Care Unavailable Esquivel, Sigifredo Referring Unavailable [place]ing Attending Unavailable Esquivel, Sigifredo Primary Care Unavailable Allergies Allergy Classification Reported Allergen(s) Allergy Type Date of Onset Reaction(s) Facility (1 source) PLANT POLLENS; Translations: [PLANT POLLENS] allergy to substance 8 [facility] Work Phone: (1 source) Penicillins Allergy to substance 2 unknown [facility] Work Phone: (1 source) Sulfonamides (Antibiotic) Allergy to substance 2 NEEDS FOLLOW-UP [facility] Work Phone: Medications Current Medications Medication Drug Class(es) Dates Sig (Normalized) Sig (Original) Diltiazem 2% / Lidocaine 5% Ointment (Compound) (2 sources) Start: 07-16-2023 Diltiazem 2% / Lidocaine 5% Ointment (Compound) Active 0 .ROUTE .MEDSUPPLY 1 July 16, 2023 12:00am As directed ibuprofen 200 mg oral tablet (6 sources) Nonsteroidal Anti-inflammatory Drug Start: 03-15-2023 take 200 mg by mouth every six hours Ibuprofen Active 200 MG PO EVERY 6 HOURS March 14, 2023 11:00pm levothyroxine sodium 0.175 mg oral tablet (20 sources) l-Thyroxine Start: 02-25-2023 take 150 ug by mouth every other day Levothyroxine Active 150 MCG PO .every other day February 24, 2023 11:00pm alternate with the 150mcg dose Start: 02-25-2023 take 175 ug by mouth every other day Levothyroxine Active 175 MCG PO .every other day February 24, 2023 11:00pm Start: 12-22-2014 End: 02-25-2023 take 125 ug by mouth once daily Levothyroxine Discontinued 125 MCG PO DAILY December 21, 2014 11:00pm February 25, 2023 2:25pm Start: 12-02-2014 SYNTHROID 137 MCG TABS as directed LEVOTHYROXINE SODIUM [id number] Tamiko Mora Completed/Discontinued Medications Medication Drug Class(es) Dates Sig (Normalized) Sig (Original) acetaminophen 325 mg / HYDROcodone bitartrate 5 mg oral tablet (16 sources) Opioid Agonist Start: 10-14-2018 End: 10-17-2018 take 1 tablet by mouth every six hours as needed Hydrocodone-Acetami nophen Discontinued 1 TABLET PO EVERY 6 HOURS NEEDED 10 3 October 13, 2018 11:00pm October 16, 2018 11:12pm Start: 12-29-2014 End: 10-15-2017 take 1 tablet by mouth every six hours as needed Hydrocodone-Acetaminophen Discontinued 1 - 2 TABLET PO EVERY 6 HOURS NEEDED 60 December 28, 2014 11:00pm October 15, 2017 5:28am apixaban 5 mg oral tablet (8 sources) Factor Xa Inhibitor Start: 02-09-2022 End: 03-08-2023 take 1 tablet by mouth twice daily Apixaban (Eliquis) 5 mg tablet Discontinued 5 MG PO TWICE A DAY February 08, 2022 11:00pm March 08, 2023 12:27pm Start: 10-18-2021 End: 10-30-2021 take 1 tablet by mouth twice daily ELIQUIS 2.5 MG TABS Take 1 tablet by mouth twice a day apixaban [id number] Pelon Mercer MD azithromycin 250 mg oral tablet (14 sources) Macrolide Antimicrobial Start: 10-15-2017 End: 10-20-2017 Azithromycin Discontinued 250 MG PO daily 01 07October 14, 2017 11:00pm October 19, 2017 11:09pm Take 2 tabs once on day one then take one tablet once daily for the next 4 days. Start: 10-25-2010 End: 10-30-2010 ZITHROMAX 250 MG TABS Take t wo (2 ) tablets day one, then one (1) tablet a day for four (4) more days AZITHROMYCIN [id number] Carmen Mercado PA-C erythromycin 0.005 mg/mg ophthalmic ointment (8 sources) Macrolide, Macrolide Antimicrobial Start: 10-14-2018 End: 09-12-2019 Erythromycin Discontinued 1 APPLIC LEFT EYE THREE TIMES A DAY 1 October 13, 2018 11:00pm September 12, 2019 10:02am methylPREDNISolone 4 mg oral tablet (8 sources) Corticosteroid Start: 10-15-2017 End: 10-20-2017 take 1 tablet by mouth once Methylprednisolone (Medrol (Natan)) 4 mg tablets,dose pack Discontinued 4 MG PO per package directions 23 12October 14, 2017 11:00pm October 19, 2017 11:09pm ondansetron 8 mg oral tablet (8 sources) Serotonin-3 Receptor Antagonist Start: 12-29-2014 End: 10-15-2017 take 8 mg by mouth every eight hours as needed Ondansetron Hcl Discontinued 8 MG PO EVERY 8 HOURS NEEDED December 28, 2014 11:00pm October 15, 2017 5:28am Problems Active Problems Problem Classification Problem Date Documented Da te Episodic/Chronic Acute bronchitis (14 sources) Acute bronchitis; Translations: [Acute bronchitis, unspecified] Onset: 10-25-2010 Resolved: 11-24-2010 10-25-2010 Episodic Anal and rectal conditions (9 sources) Anal fissure; Translations: [Anal fissure, unspecified] 06-18-2023 Episodic Biliary tract disease (8 sources) Biliary colic; Translations: [Calculus of bile duct without cholangitis or cholecystitis without obstruction] 12-11-2020 Episodic Diseases of white blood cells (2 sources) [...] Translations: [Chest pain, unspecified] Onset: 04-29-2018 Episodic Open wounds of extremities (1 source) Laceration without foreign body of right thumb without damage to nail, initial encounter; Translations: [Laceration without foreign body of right thumb without damage to nail, initial encounter] Onset: 09-08-2024 Episodic Other circulatory disease (8 sources) Pulmonary congestion ; Translations: [Other specified symptoms and signs involving the circulatory and respiratory systems] 10-15-2017 Episodic Other connective tissue disease (2 sources) Arthrodesis status; Translations: [Arthrodesis status] Onset: 04-29-2018 Episodic Other connective tissue disease (1 source) Pain in right finger(s); Translations: [Pain in right finger(s)] Onset: 09-20-2024 Episodic Other non-traumatic joint disorders (6 sources) Arthritis of hand; Translations: [Other specific arthropathies, not elsewhere classified, unspecified wrist] Onset: 01-14-2015 01-21-2015 Chronic Other nutritional; endocrine; and metabolic disorders (6 sources) Obesity; Translations: [Obesity, unspecified] 03-08-2023 Chronic Other nutritional; endocrine; and metabolic disorders (7 sources) Obesity, unspecified; Translations: [Obesity, unspecified] 03-08-2023 Chronic Other screening for suspected conditions (not mental disorders or infectious disease) (10 sources) Patient encounter status; Translations: [Encounter for screening for malignant neoplasm of colon] Onset: 08-30-2024 03-15-2023 Episodic Other upper respiratory infections (8 sources) Viral sinusitis; Translations: [Chronic sinusitis, unspecified] 07-02-2021 Chronic Phlebitis; thrombophlebitis and thromboembolism (7 sources) H/O: Deep vein thrombosis; Translations: [Personal history of other venous thrombosis and embolism] 02-21-2022 Episodic Pulmonary heart disease (2 sources) Other pulmonary embolism without acute cor pulmonale; Translations: [Other pulmonary embolism without acute cor pulmonale] Onset: 04-29-2018 Episodic Residual codes; unclassified (6 sources) Daytime hypersomnia; Translations: [Hypersomnia, unspecified] 03-08-2023 Chronic Residual codes; unclassified (4 sources) Hypersomnia, unspecified; Translations: [Hypersomnia, unspecified] 03-08-2023 Chronic Residual codes; unclassified (3 sources) Obstructive sleep apnea syndrome; Translations: [Obstructive sleep apnea (adult) (pediatric)] 06-12-2023 Chronic Residual codes; unclassified (3 sources) Obstructive sleep apnea (adult) (pediatric); Translations: [Obstructive sleep apnea (adult)(pediatric)] 06-12-2023 Chronic Spondylosis; intervertebral disc disorders; other back problems (1 source) Herniation of nucleus pulposus; Translations: [Other cervical disc displacement, unspecified cervical region] Onset: 03-27-2018 03-27-2018 Chronic Sprains and strains (8 sources) Strain of muscle at thorax level; Translations: [Strain of muscle and tendon of unspecified wall of thorax, initial encounter] 02-12-2018 Episodic Thyroid disorders (16 sources) Hypothyroidism; Translations: [Hypothyroidism, unspecified] Onset: 04-29-2018 10-25-2010 Chronic Past or Other Problems Problem Classification Problem Date Documented Date Episodic/Chronic Abdominal pain (1 source) Pelvic and perineal pain; Translations: [Pelvic and perineal pain] Onset: 05-28-2024 Episodic Other bone disease and musculoskeletal deformities (12 sources) Segmental and somatic dysfunction; Translations: [Segmental and somatic dysfunction of cervical region] Onset: 11-01-2016 11-01-2016 Episodic Other connective tissue disease (12 sources) Ganglion cyst; Translations: [Hand pain] Onset: 12-02-2014 12-09-2014 Episodic Other connective tissue disease (1 source) History of cervical spine fusion; Translations: [Arthrodesis status] Onset: 05-08-2018 05-08-2018 Episodic Other connective tissue disease (1 source) Lateral epicondylitis, left elbow; Translations: [Lateral epicondylitis, left elbow] Onset: 04-13-2024 Episodic Other non-traumatic joint disorders (18 sources) Hip pain; 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] Onset: 11-23-2016 11-23-2016 Episodic Other non-traumatic joint disorders (1 source) Pain in left elbow; Translations: [Pain in left elbow] Onset: 02-21-2024 Episodic Other upper respiratory infections (8 sources) Sinusitis; Translations: [Acute nasopharyngitis [common cold]] Onset: 10-25-2010 10-25-2010 Episodic Spondylosis; intervertebral disc disorders; other back problems (7 sources) Low back pain; Translations: [Spinal stenosis in cervical region] Onset: 11-23-2016 11-23-2016 Episodic Unclassified (1 source) Problem Unclassified (7 sources) history of child 03-01-2022 Unclassified (7 sources) history of cyst on wrist 03-01-2022 Results Test Name Value Interpretation Reference Range Facility Urgent Care Visit Reporton 0 11-19-2024 Urgent Care Visit Report [facility] [address], [address] [place] [address] OFFICE VISIT Date of Service: 11/19/24 MR#: [id number] Acct: [id number] Name: PAO CUNNINGHAM Rep #: [id number] : 1975 Provider: BRENDA Olivarez Age/Sex: 49/F Location: [facility] Status: Signed Intake Vital Signs 09/04/24 14:42 11/19/24 06:25 Height 5 ft 4 in BP 130/74 H Blood Pressure Location Lt brachial Position Sitting Respiration 16 Pulse 86 Pulse Source NIBP Temp 98.2 F Temp Source Oral Pulse Oximetry (%) 98 Oxygen Delivery Method room air Intake Visit Reasons: CONCERN FOR SINUS INFECTION Chief Complaint: face/eye pressure, ARROYO, 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 Is patient in pain?: Yes Allergies No Known Allergies Allergy (Verified 11/19/24 06:25) Medications ???Medication ???Instructions ???Recorded ???Confirmed ???Type levothyroxine 150 mcg tablet 150 mcg PO .every other day 10/09/24 History levothyroxine 175 mcg tablet 175 mcg PO .every other day 10/09/24 History amoxicillin 875 mg-potassium 1 tab PO Q12H 10 days #20 tabs 11/19/24 Rx clavulanate 125 mg tablet ipratropium bromide 21 mcg (0.03 2 spray intranasal BID-TID PRN 11/19/24 Rx %) nasal spray postnasal drainage #30 mL Is last menstrual period known: No Post menopausal: No Patient : No Have you fallen in the past year?: No Nurse's Note: face/eye pressure, ARROYO, drainage x 2 weeks. worse in last 48 hours. denies fever, cough [facility] Medical History Wears partial dentures CPAP (continuous positive airway pressure) dependence Sleep apnea Non-smoker Fractured nose Crushing injury of right knee, sequela Hx pulmonary embolism Deep vein blood clot of right lower extremity Migraine Leg swelling Thyroid disease history of cyst on wrist history of child Surgical History Hx of colonoscopy H/O removal of cyst S/P ACL repair H/O tubal ligation Hx of tonsillectomy H/O arthroscopic knee surgery S/P cervical spinal fusion Family History Father Diabetes Colon polyp Hypothyroidism Myocardial infarction Mother Barretts esophagus Sister Hypothyroidism Grandfather Myocardial infarction Social History household members: spouse and children number of children: 3 current occupational status: employed current occupation: [employer] Smoking Status: Never smoker alcohol intake: never what type of physical activity do you participate in: walking and bicycling frequency: daily seatbelt use: always additional social history: - Meet- 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 Patient states that this has worsened quite a bit over the past 5 days. No fever, chills or sweats. No nausea vomiting diarrhea. No hemoptysis, shortness of breath or pain. No other associated symptoms or alleviating/aggravating factors. ROS Const Constitutional: Positive for other (ROS negative x6 except what was placed in HPI) Exam Const General: cooperative and healthy appearing HENMT Head: normal to inspection Ears: hearing grossly normal bilaterally, TM's normal bilaterally and EAC's normal Nose: nasal discharge purulent Face and sinus: sinus tenderness frontal and maxillary Mouth: oral mucosae normal Throat: abnormal tonsil bilaterally erythema and hypertrophy 1+ and postnasal drainage Resp Effort Inspection: normal respiratory effort Auscultation: Bilateral: Clear to Auscultation Cardio Palpation: normal PMI Rate: regular rate Rhythm: regular rhythm Neuro General: patient alert and CN's II-XI intact bilaterally Psych Appearance: grossly normal Mental Status: mental status grossly normal Coding Level of Care Code Off vis,est,level 3 Diagnoses Acute non-recurrent maxillary sinusitis J01.00 Sinusitis location: maxillary Chronicity: acute Recurrence: non-recurrent Assessment and Plan Assessment and Plan (1) Sinus infection: Status: Acute Qualifiers: Sinusitis location: maxillary Chronicity: acute Recurrence: non-recurrent Qualified Code(s): J01.00 - Acute maxillary sinusitis, unspecified Plan: Augmentin and Atrovent as prescribed today. Encouraged to get plenty of rest, drink lots of clear liquids, and use Tylenol or Ibuprofen (unless contraindicated) for fever and comfort. Patient also educated on other symptoma (more content not included)... Normal [facility] Plastic Surgery Visit Report on 10-09-2024 Plastic Surgery Visit Report [facility] [address], [address] [place] [address] OFFICE VISIT Date of Service: 10/09/24 MR#: [id number] Acct: [id number] Name: PAO CUNNINGHAM Rep #: [id number] : 1975 Provider: Dr. Иван Servin MD Age/Sex: 49/F Location[place] [facility] Status: Signed Intake Vital Signs 09/04/24 14:42 10/09/24 10:59 Height 5 ft 4 in Weight: 243 lb BMI 41.7 BP 131/85 H 134/74 H Blood Pressure Location Rt brachial Rt brachial Position Sitting Sitting Respiration 18 18 Pulse 69 78 Pulse Source Monitor Monitor Temp 98.2 F 97.9 F Temp Source Oral Oral Pulse Oximetry (%) 96 97 Oxygen Delivery Method room air room air Intake Visit Reasons: 3 W FU Chief Complaint: R thumb injury f/u Is patient in pain?: Yes Allergies No Known Allergies Allergy (Verified 10/09/24 10:58) Medications ???Medication ???Instructions ???Recorded ???Confirmed ???Type levothyroxine 150 mcg tablet 150 mcg PO .every other day 10/09/24 History levothyroxine 175 mcg tablet 175 mcg PO .every other day 10/09/24 History cephalexin 500 mg capsule 500 mg PO TID 3 days #9 caps 08/1510/09/24 Rx PFSH Medical History Wears partial dentures CPAP (continuous positive airway pressure) dependence Sleep apnea Non-smoker Fractured nose Crushing injury of right knee, sequela Hx pulmonary embolism Deep vein blood clot of right lower extremity Migraine Leg swelling Thyroid disease history of cyst on wrist history of child Surgical History Hx of colonoscopy H/O removal of cyst S/P ACL repair H/O tubal ligation Hx of tonsillectomy H/O arthroscopic knee surgery S/P cervical spinal fusion Family History Father Diabetes Colon polyp Hypothyroidism Myocardial infarction Mother Barretts esophagus Sister Hypothyroidism Grandfather Myocardial infarction Social History household members: spouse and children number of children: 3 current occupational status: employed current occupation: [employer] Smoking Status: Never smoker alcohol intake: never what type of physical activity do you participate in: walking and bicycling frequency: daily seatbelt use: always additional social history: - Meet- 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 Pt was seen in the ER and received stitches at that time. No x-ray. The incision is healing nicely but she is having constant pain along with pins and needles sensation. She denies issues moving her thumb. She has a history of DVT after 2 separate surgeries. She denies smoking cigarettes. She comes in today for further evaluation and treatment of her right thumb pain. Tetanus was updated in the ED She is not a smoker 18 SEP 2024: Improvement in pain overall, except she has significant point tenderness when the thumb is bumped in the location of the laceration/scar. Slight and localized numbness distal to the zone of injury, but no numbness on the thumb tip. She reports significant improvement with the Neurontin and would like a refill for another 2 weeks. CURRENT ENCOUNTER, 09 October 2024: Doing well overall. Reports that she's happy with the improvement with time (it is not waking her up or hurting her unless she hits the area on something and then she gets a shooting/electrical pain). She's able to function well. Still small area of persistent paresthesia just distal to the scar. Exam Details Right upper Extremity Inspection: Laceration over the thumb MCP joint on the radial side that is healing with a slightly hypertrophic but less tender scar. Motor: Able to bend and extend all MP, PIP, and DIP joints. Normal thumb range of motion, opposes the thumb to the small finger. Good intrinsic function. Able to extend the IP joint of the thumb. Sensory: Sensation to light touch is to pressure only just distal to the zone of injury on the dorsum of the thumb, but the thumb tip/radial and ulnar borders have normal sensation. Vascular: Finger tips are warm and well perfused with <2 second capillary refill. Const General: cooperative HENMT Head: normal to inspection Resp Effort Inspection: normal respiratory effort and able to speak in complete sentences Cardio Rate: regular rate Rhythm: regular rhythm Coding Level of Care Code Off vis,est,level 2 Diagnoses Thumb laceration S61.019A (more content not included)... Normal [facility] Plastic Surgery Visit Report on 09-18-2024 Plastic Surgery Visit Report [facility] [address], [address] [place] [address] OFFICE VISIT Date of Service: 09/18/24 MR#: [id number] Acct: [id number] Name: PAO CUNNINGHAM Rep #: [id number] : 1975 Provider: Dr. Иван Servin MD Age/Sex: 49/F Location: [facility] Status: Signed Intake Vital Signs 3 09/04/24 14:42 09/18/24 11:26 Height 5 ft 4 in Weight: 243 lb BMI 41.7 BP 131/85 H 138/84 H Blood Pressure Location Rt brachial Lt brachial Position Sitting Sitting Respiration 18 18 Pulse 69 65 Pulse Source Monitor Monitor Temp 98.2 F 97.8 F Temp Source Oral Oral Pulse Oximetry (%) 96 98 Oxygen Delivery Method room air room air Intake Visit Reasons: 2 W F/U Chief Complaint: R thumb injury f/u Is patient in pain?: No Allergies No Known Allergies Allergy (Verified 09/18/24 11:26) Medications 3 ???Medication ???Instructions ???Recorded ???Confirmed ???Type levothyroxine 150 mcg tablet 150 mcg PO .every other day 09/18/24 History levothyroxine 175 mcg tablet 175 mcg PO .every other day 09/18/24 History cephalexin 500 mg capsule 500 mg PO TID 3 days #9 caps 08/1509/18/24 Rx gabapentin 100 mg capsule 100 mg PO TID 14 days #42 caps 09/18/24 Rx PFSH Medical History Wears partial dentures CPAP (continuous positive airway pressure) dependence Sleep apnea Non-smoker Fractured nose Crushing injury of right knee, sequela Hx pulmonary embolism Deep vein blood clot of right lower extremity Migraine Leg swelling Thyroid disease history of cyst on wrist history of child Surgical History Hx of colonoscopy H/O removal of cyst S/P ACL repair H/O tubal ligation Hx of tonsillectomy H/O arthroscopic knee surgery S/P cervical spinal fusion Family History Father Diabetes Colon polyp Hypothyroidism Myocardial infarction Mother Barretts esophagus Sister Hypothyroidism Grandfather Myocardial infarction Social History household members: spouse and children number of children: 3 current occupational status: employed current occupation: [employer] Smoking Status: Never smoker alcohol intake: never what type of physical activity do you participate in: walking and bicycling frequency: daily seatbelt use: always additional social history: - Meet- Self 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 Pt was seen in the ER and received stitches at that time. No x-ray. The incision is healing nicely but she is having constant pain along with pins and needles sensation. She denies issues moving her thumb. She has a history of DVT after 2 separate surgeries. She denies smoking cigarettes. She comes in today for further evaluation and treatment of her right thumb pain. Tetanus was updated in the ED She is not a smoker CURRENT ENCOUNTER, 18 SEP 2024: Improvement in pain overall, except she has significant point tenderness when the thumb is bumped in the location of the laceration/scar. Slight and localized numbness distal to the zone of injury, but no numbness on the thumb tip. She reports significant improvement with the Neurontin and would like a refill for another 2 weeks. Treatment: Lidocaine [facility] [id number] LOT [id number] EXP 10/2025 Exam Details Right upper Extremity Inspection: Laceration over the thumb MCP joint on the radial side that is healing with a slightly hypertrophic and tender scar. Motor: Able to bend and extend all MP, PIP, and DIP joints. Normal thumb range of motion, opposes the thumb to the small finger. Good intrinsic function. Able to extend the IP joint of the thumb. Sensory: 4mm 2 point discrimination to dorsal right thumb distal to the zone of injury which is the same as the contralateral side. Reports that she feels a sharp sensation distal to the zone of injury consistent with an intact nerve. Sensation to light touch absent just distal to the zone of injury on the dorsum of the thumb. Vascular: Finger tips are warm and well perfused with <2 second capillary refill. Const General: cooperative HENMT Head: normal to inspection Resp Effort Inspection: normal respiratory effort and able to speak in complete sentences Cardio Rate: regular rate Rhythm: regular rhythm Coding Level of Care Code Off vis,est,level 3 Diagnoses Thumb laceration S61.019A Assessment and P (more content not included)... [facility] Finger(s) Min 2 Viewson 08-07 Finger(s) Min 2 Views [facility] Imaging Services [address] [place] [address] Finger(s) Min 2 Views MR#: [id number] Acct: [id number] Name: PAO CUNNINGHAM Rep #: [id number] : 1975 F 49 From: Sammy William MD PCP: Dr. Sigifredo Esquivel MD Status: REG CLI Study: Finger(s) Min 2 Views Date of Exam: 09/04/24 Exam# [id number] Ordering Dr: Catrina Martell NP ENDOSCOPY SUPPORT SPECIALIST-C PROCEDURE: FINGER(S) MIN 2 VIEWS REASON FOR EXAM: Trauma TECHNIQUE: Three views right thumb COMPARISON: None FINDINGS: No visible fracture. Normal alignment. Soft tissues are unremarkable. RAD/Finger(s) Min 2 Views IMPRESSION: NEGATIVE FINGER SERIES Reading Location: [facility] CC: ENDOSCOPY SUPPORT SPECIALIST-C Catrina Martell; Dr. Sigifredo Esquivel MD Hydrology Professor: Signed [facility] Plastic Surgery Visit Report on 09-04-2024 Plastic Surgery Visit Report [facility] Plastic Reconstructive Surgery [address], [address] [place] [address] OFFICE VISIT Date of Service: 09/04/24 MR#: [id number] Acct: [id number] Name: PAO CUNNINGHAM DELILAH Rep #: [id number] : 1975 Provider: Dr. Иван Servin MD Age/Sex: 49/F Location: [facility] Status: Signed Intake Vital Signs 08/17/24 13:02 09/04/24 14:42 Height 5 ft 4 in 5 ft 4 in Weight: 243 lb BMI 41.7 BP 131/85 H Blood Pressure Location Rt brachial Position Sitting Respiration 18 Pulse 69 Pulse Source Monitor Temp 98.2 F Temp Source Oral Pulse Oximetry (%) 96 Oxygen Delivery Method room air Intake Visit Reasons: R THUMB INJURY Chief Complaint: R thumb injury Is patient in pain?: Yes Pain scale (1-10): 4 Allergies No Known Allergies Allergy (Verified 09/04/24 14:42) Medications ???Medication ???Instructions ???Recorded ???Confirmed ???Type levothyroxine 150 mcg tablet 150 mcg PO .every other day 09/04/24 History levothyroxine 175 mcg tablet 175 mcg PO .every other day 09/04/24 History cephalexin 500 mg capsule 500 mg PO TID 3 days #9 caps 08/1509/04/24 Rx gabapentin 100 mg capsule 100 mg PO TID 14 days #42 caps 09/04/24 Rx PFSH Medical History Wears partial dentures CPAP (continuous positive airway pressure) dependence Sleep apnea Non-smoker Fractured nose Crushing injury of right knee, sequela Hx pulmonary embolism Deep vein blood clot of right lower extremity Migraine Leg swelling Thyroid disease history of cyst on wrist history of child Surgical History Hx of colonoscopy H/O removal of cyst S/P ACL repair H/O tubal ligation Hx of tonsillectomy H/O arthroscopic knee surgery S/P cervical spinal fusion Family History Father Diabetes Colon polyp Hypothyroidism Myocardial infarction Mother Barretts esophagus Sister Hypothyroidism Grandfather Myocardial infarction Social History household members: spouse and children number of children: 3 current occupational status: employed current occupation: [employer] Smoking Status: Never smoker alcohol intake: never what type of physical activity do you participate in: walking and bicycling frequency: daily seatbelt use: always additional social history: - Meet- 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 Pt was seen in the ER and received stitches at that time. No x-ray. The incision is healing nicely but she is having constant pain along with pins and needles sensation. She denies issues moving her thumb. She has a history of DVT after 2 separate surgeries. She denies smoking cigarettes. She comes in today for further evaluation and treatment of her right thumb pain. Tetanus was updated in the ED She is not a smoker ROS General General: Yes good health; No fatigue, fever(s) or weight loss HENMT HENMT: No rhinitis, sore throat/mouth sore, nasal congestion, contacts or glaucoma Endo Endocrine: Yes thyroid disease; No polydipsia, heat intolerance, cold intolerance, hepatitis or excessive urine Skin Skin: No Bleeding, bruising, changing moles or suspicious lesion Musc Musculoskeletal: No joint pain, joint stiffness, muscle weakness, back pain, osteoarthritis or Muscle aches/ myalgia Neuro Neurological: No headache(s), No lightheadedness and No numbness Cardio Cardiovascular: No chest pain, pacemaker, fatigue or shortness of breat with exertion Psych Psychiatric: No depression, claustrophobia or anxiety Resp Respiratory: Yes sleep apnea; No spitting up, shortness of breath, asthma, emphysema, TB, Cough or Smoker Gastro Gastrointestinal: No diarrhea, constipation, blood in stool, nausea, vomiting or abdominal bloating Gelacio Hematologic: No anemia, No bleeding and No abnormal bleeding Genitourinary: No urinary frequency, blood in urine or incontinence Exam Details Right upper Extremity Inspection: Laceration over the thumb MCP joint on the radial side that is healing quite well with acceptable scar Motor: Able to bend and extend all MP, PIP, and DIP joints. Normal thumb range of motion, opposes the thumb to the small finger. Good intrinsic function. Able to extend the IP joint of the thumb. Sensory: 4mm 2 point discrimination to dorsal right thumb distal to the zone of injury which is the same as the contralateral side. Reports that she fe (more content not included)... 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: No Is patient in pain?: No Allergies No Known Allergies Allergy (Verified 08/17/24 12:58) Medications ???Medication ???Instructions ???Recorded ???Confirmed ???Type levothyroxine 150 mcg tablet 150 mcg PO .every other day 02/25/23 08/17/24 History levothyroxine 175 mcg tablet 175 mcg PO .every other day 02/25/23 08/17/24 History cephalexin 500 mg capsule 500 mg PO TID 3 days #9 caps 08/15/24 08/17/24 Rx Is last menstrual period known: No Post menopausal: Yes Patient : No : No PFSH Medical History Wears partial dentures CPAP (continuous positive airway pressure) dependence Sleep apnea Non-smoker Fractured nose Crushing injury of right knee, sequela Hx pulmonary embolism Deep vein blood clot of right lower extremity Migraine Leg swelling Thyroid disease history of cyst on wrist history of child Surgical History Hx of colonoscopy H/O removal of cyst S/P ACL repair H/O tubal ligation Hx of tonsillectomy H/O arthroscopic knee surgery S/P cervical spinal fusion Family History Father Diabetes Colon polyp Hypothyroidism Myocardial infarction Mother Barretts esophagus Sister Hypothyroidism Grandfather Myocardial infarction Social History household members: spouse and children number of children: 3 current occupational status: employed current occupation: [employer] Smoking Status: Never smoker alcohol intake: never what type of physical activity do you participate in: walking and bicycling frequency: daily seatbelt use: always additional social history: - Meet- 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 Menses still every 6-8 weeks. Denies concerns Last PAP: 2023 History of abnormal PAP: no Last mammogram: 08/2023 History of abnormal mammogram: no Colon cancer screenin Other preventative health care screenings: Nikita Esquivel Female Reproductive History Last Menstrual Period: 08/05/24 Cycle Length: >35 Questions: metorrhagia: No, sexually active: Yes, dyspareunia: No and PCB: No ROS Const Constitutional: Denies fatigue, weight gain or weight loss Cardio Card: Denies chest pain Resp Resp: Denies cough or dyspnea on exertion GI GI: Denies abdominal pain, bloating, change in stool character, constipation or vomiting : Reports as per HPI; Denies difficulty voiding, pelvic pain, urinary frequency, urinary incontinence, urinary urgency, vaginal discharge or vaginal pruritus Exam Const General: cooperative, healthy appearing, no acute distress and well developed Orientation: alert, oriented to person and oriented to place HENOH Head: normal to inspection Neck Neck: normal visual inspection Thyroid: thyroid normal Lymphatic: no lymphadenopathy noted Chest Breast inspection: normal inspection of the breasts and normal inspection of the axillae Breast palpation: normal palpation of the breasts, normal palpation of the axillae and no axillary lymphadenopathy Resp Effort Inspection: normal respiratory effort GI Palpation: soft, no masses and nontender Rectal Exam: deferred External Female Exam: normal external appearance and normal appearance of the urethra Urethra: normal appearance of the urethra and normal palpation Speculum Exam - Vagina: normal appearance of the vagina and normal vaginal discharge Speculum Exam - Cervix: normal appearance of the cervix Bimanual Exam- Vagina Uterus: normal bimanual exam, uterine size normal, uterine shape normal and non-tender Bimanual Exam- Adnexa, other: normal adnexae, no masses, normal and non-tender Pelvic Support: normal Neuro General: patient alert and patient oriented x3 Psych Affect: normal affect Coding (more content not included)... [facility] Emergency Department Summary on 08-15-2024 Emergency Department Summary [facility] Medical Records Department [address] [place] [address] Emergency Department Summary 08/15/24 MR#: [id number] Acct: [id number] Name: PAO CUNNINGHAM Rep #: [id number] : 1975 49 From: Pradip Herndon DO PCP: Dr. Sigifredo Esquivel MD Status:DEP ER Location: ED HPI History of Present Illness Chief Complaint: Laceration PFSH PFS Medical History Wears partial dentures CPAP (continuous positive airway pressure) dependence Sleep apnea Non-smoker Fractured nose Crushing injury of right knee, sequela Hx pulmonary embolism Deep vein blood clot of right lower extremity Migraine Leg swelling Thyroid disease history of cyst on wrist history of child Home Medications ???Medication ???Instructions ???Recorded ???Last Taken ???Type levothyroxine 150 mcg tablet 150 mcg PO .every other day 02/25/23 08/15/24 History levothyroxine 175 mcg tablet 175 mcg PO .every other day 02/25/23 08/15/24 History cephalexin 500 mg capsule 500 mg PO TID 3 days #9 caps 08/15/24 Unknown Rx Allergy/AdvReac Type Severity Reaction Status Date / Time No Known Allergies Allergy Verified 08/15/24 11:28 Family History (Reviewed 07/06/24 @ 14:17 by Jess Mariano ENDOSCOPY SUPPORT SPECIALIST, ENDOSCOPY SUPPORT SPECIALIST-C) Father Diabetes Colon polyp Hypothyroidism Myocardial infarction Mother Barretts esophagus Sister Hypothyroidism Grandfather Myocardial infarction Surgical History Hx of colonoscopy H/O removal of cyst S/P ACL repair H/O tubal ligation Hx of tonsillectomy H/O arthroscopic knee surgery S/P cervical spinal fusion Social History (Reviewed 07/06/24 @ 14:17 by Jess Mariano ENDOSCOPY SUPPORT SPECIALIST, ENDOSCOPY SUPPORT SPECIALIST-C) household members: spouse and children number of children: 3 current occupational status: employed current occupation: [employer] Smoking Status: Never smoker alcohol intake: never what type of physical activity do you participate in: walking and bicycling frequency: daily seatbelt use: always additional social history: - Meet- 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 Notes this occurred just prior to arrival as she was trying to remove her oven door to clean it. Denies any foreign bodies. Denies any loss of sensation. Notes she is left-hand dominant. Unknown last tetanus. REVIEW OF SYSTEMS: Pertinent positives: Right thumb wound Pertinent negatives: Loss of movement or sensation PHYSICAL EXAM: Nursing triage notes reviewed, Vital signs reviewed Constitutional: please see mdm Extremities: No edema Neuro: intact 5/5 strength with ok sign (median), intact finger abduction (ulnar) intact wrist extension (radial n). Intact sensation in the radial, ulnar, and median nerve distributions. Skin: Approximately 1 and half centimeter linear laceration noted to the dorsal lateral surface of the first digit of the right hand MEDICAL DECISION MAKING: Chief Complaint: Thumb laceration External records reviewed: Reviewed prior allergies Factors affecting care: history of hypertension Social determinants of health: none History obtained from others: none Consults: none [facility] Narrative: The patient was hemodynamically stable, afebrile and nontoxic-appearing. Exam with laceration as described above The patient suffered lacerations to the right thumb On exam there was no evidence of foreign bodies. There was no evidence of neurovascular injury. Patient had a normal distal vascular exam, and had intact ROM and sensation. There was also no evidence of tendon injury, with normal distal full range of motion, flexion, extension, abduction, abduction. There is no evidence of local joint space involvement at this time. Wound care applied (irrigation and/or local cleansing solution). Laceration repair was then performed please see procedure note. The patient was given signs and symptoms warnings for infection, such as increasing pain, redness, swelling, associated heat, pus or fever. Patient was given instructions for timely follow-up for removal. Patient agreed with the plan of care Procedure: Laceration repair. The procedure was performed by myself. Indication: Wound repair Risks and benefits: risks, benefits and alternatives were discussed Consent: Consent w (more content not included)... [facility] SCRN MAMM (CAD)W/ANAND BILATo n 08-06-2024 SCRN MAMM (CAD)W/ANAND BILAT [facility] Imaging Services [address] [place] [address] SCRN MAMM (CAD)W/ANAND BILAT MR#: [id number] Acct: [id number] Name: PAO CUNNINGHAM Rep #: [id number] : 1975 F 49 From: Jim Garrett MD PCP: Dr. Sigifredo Esquivel MD Status: REG CL Study: SCRN MAMM (CAD)W/ANAND BILAT Date of Exam: 09/29 Exam# [id number] Ordering Dr: Ping Mcnally ENDOSCOPY SUPPORT SPECIALIST ENDOSCOPY SUPPORT SPECIALIST -C [id number] MAMMOGRAPHY - BILATERAL SCREENING 3-D TOMOSYNTHESIS REASON FOR EXAM: Female, 49 years old. Routine screening PERTINENT HISTORY: No significant family history. TECHNIQUE: 2-D mammograms and 3-D Tomosynthesis of the breast (s) were performed. CAD was performed. COMPARISON: 07/24/2022 FINDINGS: The breast composition is almost entirely fat. Scattered benign calcifications are seen. No dense spiculated masses or suspicious microcalcifications are identified. No architectural distortion is identified. There is no skin thickening or retraction. There has been no significant change since the prior study. BI/SCRN MAMM (CAD)W/ANAND BILAT IMPRESSION: No mammographic signs of malignancy. Routine yearly mammograms recommended. ASSESSMENT CATEGORY: BIRADS Category 1: Negative. A letter regarding these results will be sent to the patient by the facility within 30 days. FOLLOW UP RECOMMENDATION: Yearly follow up mammogram recommended. (A) Approximately 10% of breast cancers are not detected by mammography. A normal mammogram should not delay biopsy of a clinically suspicious abnormality. Electronically Signed: Anthony Garrett MD at 9:08 EST , CC: ALLA Mcnally; Dr. Sigifredo Esquivel MD Hydrology Professor: Signed [facility] Pulmonary Visit Reporton Pulmonary Visit Report [facility] [address] [place] [address] OFFICE VISIT Date of Service: 07/06/24 MR#: [id number] Acct: [id number] Name: PAO CUNNINGHAM Rep #: [id number] : 1975 Provider: ALLA Mariano Age/Sex: 49/F [place] [facility] Status: Signed Assessment and Plan Assessment and Plan (1) UZMA (obstructive sleep apnea): Status: Chronic Comment: AHI 26, treated CPAP 11 cmH2O Plan: She is using and benefiting from Pap therapy. No indication for titration study at this time. Contact the office for any new or worsening symptoms in the meantime. Follow-up in 1 year. (2) Obesity: Status: Chronic Qualifiers: Obesity type: due to excess calories Obesity classification: adult class 3 (BMI >= 40) Serious obesity comorbidity presence: with serious comorbidity Body mass index: BMI 40.0-44.9 Qualified Code(s): E66.01 - Morbid (severe) obesity due to excess calories; Z68.41 - Body mass index [BMI] 40.0-44.9, adult Plan: Continue to encourage weight loss. (3) High blood pressure: Status: Acute Qualifiers: Hypertension type: unspecified Qualified Code(s): I10 - Essential (primary) hypertension Plan: Of unclear etiology. I reviewed with the patient that her blood pressure is typically high when she is in our office. She states that he does not high when she is at her PCPs office. She also reports that her son is an EMT, so it would be easy for her to check her blood pressure at home. I have advised her that it would be albarran to check her blood pressure at home to determine if this truly is a high blood pressure or if it just seems to be elevated when she sees us. Please note that the patient comes to see us during work hours, therefore stress related to workplace could be playing a role in these high blood pressures noted at our office. If the patient does notice that the blood pressures are high at home she is going to have a discussion with her PCP. I explained to her that hypertension is a risk factor of suboptimal management of obstructive sleep apnea, however this is not the case for her. Her symptoms are well-controlled as she reports, and according to her compliance report there is no indication for retitration study or any pressure support adjustments. Plan Details Follow Up: 1 Year (LMR) HPI 1 Y FU/CPAP YEARLY APPROVAL Chief Complaint: Routine follow-up HPI Comments Details: This patient presents to the office today for initial consultation regarding concern for obstructive sleep apnea. She is ambulatory and currently on room air. She has not recently been seen in the ED or urgent care for any respiratory illness. She has not required any antibiotics or prednisone for any breathing problems. She does report shortness of breath on exertion. She denies any cough, sputum production or hemoptysis. She has not had any wheezing, chest tightness, chest pain or palpitations. She also denies any fever, chills or body aches. She wakes feeling rested refreshed with use of her Pap device. She is not having difficulty with dry mouth or mask leaks. She denies excessive nocturia. She is not requiring naps and is not nodding off to sleep unintentionally. Compliance report for the past 30 days shows 100% compliance and average use of 6 hours and 51 minutes per night. Current setting is CPAP 11 cmH2O with residual AHI 0.9 events per hour. Leaks do not appear to be problematic. 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: No DME Vendor: pap- [employer] Accompanied by: Self Is patient in pain?: No Allergies No Known Allergies Allergy (Verified 07/06/24 13:54) Medications ???Medication ???Instructions ???Recorded ???Confirmed ???Type levothyroxine 150 mcg tablet 150 mcg PO .every other day 02/25/23 07/06/24 History levothyroxine 175 mcg tablet 175 mcg PO .every other day 02/25/23 07/06/24 History PFSH Medical History Wears partial dentures CPAP (continuous positive airway pressure) dependence Sleep apnea Non-smoker Fractured nose Crushing injury of right knee, sequela Hx pulmonary embolism Deep vein blood clot of right lower extremity Migraine Leg swelling Thyroid disease history of cyst on wrist history of child Surgical History Hx of colonoscopy H/O removal of cyst S/P (more content not included)... [facility] [employer] Installation Helper Office Visit Reporton 05-13-2024 Marble Installation Helper Office Visit Report [facility] [address], [address] [place] [address] OFFICE VISIT Date of Service: 05/13/24 MR#: [id number] Acct: [id number] Name: PAO CUNNINGHAM Rep #: [id number] : 1975 Provider: ALLA cho Age/Sex: 49/F [facility] [facility] Status: Signed Intake Vital Signs 03/31/24 01:44 05/13/24 10:18 05/13/24 10:22 Height 5 ft 4 in 5 ft 4 in 5 ft 4 in Weight: 242 lb BMI 41.5 BP 136/84 H Intake Visit Reasons: PELVIC PAIN Chief Complaint: Pelvic pain 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 Required: No Is patient in pain?: No Allergies No Known Allergies Allergy (Verified 05/13/24 10:16) Medications ???Medication ???Instructions ???Recorded ???Confirmed ???Type levothyroxine 150 mcg tablet 150 mcg PO .every other day 02/25/23 05/13/24 History levothyroxine 175 mcg tablet 175 mcg PO .every other day 02/25/23 05/13/24 History Is last menstrual period known: Yes Last Menstrual Period: 03/31/24 Post menopausal: No Patient : No : No [facility] History Wears partial dentures CPAP (continuous positive airway pressure) dependence Sleep apnea Non-smoker Fractured nose Crushing injury of right knee, sequela Hx pulmonary embolism Deep vein blood clot of right lower extremity Migraine Leg swelling Thyroid disease history of cyst on wrist history of child Surgical History Hx of colonoscopy H/O removal of cyst S/P ACL repair H/O tubal ligation Hx of tonsillectomy H/O arthroscopic knee surgery S/P cervical spinal fusion Family History Father Diabetes Colon polyp Hypothyroidism Myocardial infarction Mother Barretts esophagus Sister Hypothyroidism Grandfather Myocardial infarction Social History household members: spouse and children number of children: 3 current occupational status: employed current occupation: [employer] Smoking Status: Never smoker alcohol intake: never what type of physical activity do you participate in: walking and bicycling frequency: daily seatbelt use: always additional social history: - Meet- Self Employed- [employer] HPI PELVIC PAIN Details: PAO CUNNINGHAM is a 49 year old who presents for pelvic pain: 3 episodes/Oct 2020 and went to ED. Recurred Sep and May 05. Is sudden, sharp and lasts 2-3 hours. She gets nauseous with it and last time woke her up at night. She did go to ED in 2020 and told had a gall stone. I ordered an US last week after episode and overall normal with possible mild adenomyosis, trace free fluid but no ovarian cysts noted LMP March and 1 prior was January. Usually has every 1-3 months. This is consistent for her. No hot flashes. She is pain free today. Female Reproductive History Last Menstrual Period: 03/31/24 History 3 Elective abortions Hx Para 3 Spontaneous abortions Hx # Term Pregnancies Ectopic pregnancies Hx # Pregnancies Multiple births # of living children 3 ROS Const Constitutional: Reports system reviewed and no additional complaints, except as documented Eyes Eyes: Reports system reviewed and no additional complaints, except as documented GI GI: Denies abdominal pain or change in bowel habits : Reports as per HPI Exam Const General: cooperative and no acute distress Orientation: oriented x3 HENMT Head: normal to inspection and normocephalic Eyes General: appearance normal, both eyes and all related structures Neck Neck: normal visual inspection Resp Effort Inspection: normal respiratory effort Neuro Cognition: normal cognition Speech: speech normal Psych Appearance: grossly normal Mood: congruent mood Affect: normal affect Speech and Movement: speech and movement normal Attitude: cooperative Judgment: judgment good Coding Level of Care Code Off vis,est,level 2 Diagnoses Pelvic pain R10.2 Adenomyosis N80.03 Assessment and Plan Assessment and Plan (1) Pelvic pain: Status: Acute (2) Adenomyosis: Status: Acute Comment: mild Plan Avoid esstrogen due to PE history Discussed adenomyosis usually more prolonged menses but can occur Will discuss with Dr Abreu and then call patient 05/13/24 1107 Date Ping Mcnally NP ENDOSCOPY SUPPORT SPECIALIST-C Cosigner Signature: Date (if applicable) CC: [facility] Pelvic w/ Transvaginalon Pelvic w/ Transvaginal [facility] Imaging Services [address] [place] [address] [id number] Pelvic w/ Transvaginal MR#: [id number] Acct: [id number] Name: PAO CUNNINGHAM Rep #: [id number] : 1975 F 49 From: Dorothea Mosher MD PCP: Dr. Sigifredo Esquivel MD Status: REG CLI Study: Pelvic w/ Transvaginal Date of Exam: 05/08/24 Exam# [id number] Ordering Dr: Ping Mcnally NP ENDOSCOPY SUPPORT SPECIALIST -C [id number] INDICATION: Pelvic pain EXAMINATION: Ultrasound US Pelvis Non OB Complete With Transvaginal Imaging TECHNIQUE: Transabdominal and transvaginal pelvic ultrasound was performed. Grayscale, spectral waveform, and color flow Doppler evaluation of the adnexa. LMP: April 06, 2024 COMPARISON: No relevant prior comparison study available FINDINGS: UTERUS: The uterus measures 9.3 x 4.4 x 6.0 cm. There is no uterine mass. The myometrium is mildly heterogenous. The endometrial stripe measures 5.5 mm in AP diameter which is within normal limits. There are nabothian cysts present. RIGHT OVARY: 1.7 x 1.6 x 0.9 cm. Non-enlarged, normal echogenicity. There is normal arterial inflow and venous outflow present in the right ovary. LEFT OVARY: 2.0 x 1.7 x 1.4 cm. Non-enlarged, normal echogenicity. There is normal arterial inflow and venous outflow present in the left ovary. FREE FLUID: There is trace free fluid US/Pelvic w/ Transvaginal IMPRESSION: Mildly heterogenous myometrium, may reflect adenomyosis. Electronically Signed: Dorothea Mosher MD at 10:02 EDT , CC: ALLA Mcnally; Dr. Sigifredo Esquivel MD Hydrology Professor: Signed [facility] Chest PA and Lateralon 03-31 Chest PA and Lateral [facility] Imaging Services [address] [place] [id number] Chest PA and Lateral MR#: [id number] Acct: [id number] Name: PAO CUNNINGHAM Rep #: [id number] : 1975 F 49 From: Logan mccracken MD PCP: Dr. Sigifredo Esquivel MD Status: [facility] ER Study: Chest PA and Lateral Date of Exam: 03/31/24 Exam# [id number] Ordering Dr: Christiano Dorado DO [id number] EXAM: XR CHEST, 2 VIEWS CLINICAL INDICATION: COUGH TECHNIQUE: Frontal and lateral views of the chest. COMPARISON: Previous chest radiographs of 04/27/2018 and 04/26/2018. FINDINGS: LIMITATIONS: The lateral view is degraded by respiratory motion artifact. LUNGS AND PLEURAL SPACES: No acute pulmonary infiltrates or pleural effusions. The lungs are not hyperinflated. No peribronchial cuffing. No pneumothorax. HEART: Unremarkable. Cardiac silhouette not enlarged. Normal pulmonary vasculature. MEDIASTINUM: Central airways and mediastinal contour are unremarkable. BONES/JOINTS: Previous lower cervical fusion again noted. Midthoracic degenerative spurring. No acute osseous abnormality. SOFT TISSUES: Unremarkable. RAD/Chest PA and Lateral IMPRESSION: No significant interval change. No acute findings in the chest. Electronically Signed: Logan Arvizu MD at 3:26 EDT , CC: Dr. Sigifredo Esquivel MD; Christiano Dorado DO Hydrology Professor: Signed [facility] Emergency Department Summary on 03-31-2024 Emergency Department Summary [facility] Medical Records Department [address] [place] [address] Emergency Department Summary 03/31/24 MR#: [id number] Acct: [id number] Name: PAO CUNNINGHAM Rep #: [id number] : 1975 49 From: Christiano Dorado DO PCP: Dr. Sigifredo Esquivel MD Status:REG ER Location: ED HPI History of Present Illness Chief Complaint: Cold Sx Informant: patient Narrative Narrative: Patient is a 49-year-old female with past medical history of UZMA as well as hypothyroidism. She states she has had approximately 7 days of congestion sinus pressure sore throat and cough. She reports she went to an urgent care the other day and was diagnosed with a sinus infection and placed on Augmentin. She states has been taking this for 2 days but has not had any symptom improvement. She now feels like it is moving into her lungs. She reports that she has had pneumonia in the past and has concern for this once again and therefore comes in for evaluation [facility] Medical History Wears partial dentures CPAP (continuous positive airway pressure) dependence Sleep apnea Non-smoker Fractured nose Crushing injury of right knee, sequela Hx pulmonary embolism Deep vein blood clot of right lower extremity Migraine Leg swelling Thyroid disease history of cyst on wrist history of child Home Medications ???Medication ???Instructions ???Recorded ???Last Taken ???Type levothyroxine 150 mcg tablet 150 mcg PO .every other day 02/25/23 07/08/23 History levothyroxine 175 mcg tablet 175 mcg PO .every other day 02/25/23 Unknown History ibuprofen 200 mg tablet 200 mg PO Q6H PRN pain 03/15/23 Unknown History fiddrmvn-mpk-yqix 18 mg-FA 400 1 tab PO DAILY 12/20/23 Unknown History mcg-calcium 500 mg-vit K 50 mcg tablet (Women's Multivitamin) valacyclovir 1 gram tablet 1,000 mg PO TID #21 tabs 02/24/24 Unknown Rx amoxicillin 875 mg-potassium 1 tab PO BID 7 days #14 tabs 03/29/24 Unknown Rx clavulanate 125 mg tablet azelastine 137 mcg (0.1 %) nasal 2 spray intranasal BID #30 mL 03/31/24 Unknown Rx spray codeine 10 mg-guaifenesin 100 mg/5 10 ml PO 4X/DAY PRN cold symptoms 03/31/24 Unknown Rx mL oral liquid (Maxi-Tuss AC) 7 days #280 mL prednisone 20 mg tablet 40 mg (2 x 20 mg) PO DAILY 5 days 03/31/24 Unknown Rx #10 tabs Allergy/AdvReac Type Severity Reaction Status Date / Time No Known Allergies Allergy Verified 03/31/24 01:44 Family History Father Diabetes Colon polyp Hypothyroidism Myocardial infarction Mother Barretts esophagus Sister Hypothyroidism Grandfather Myocardial infarction Surgical History Hx of colonoscopy H/O removal of cyst S/P ACL repair H/O tubal ligation Hx of tonsillectomy H/O arthroscopic knee surgery S/P cervical spinal fusion Social History household members: spouse and children number of children: 3 current occupational status: employed current occupation: [employer] Smoking Status: Never smoker alcohol intake: never what type of physical activity do you participate in: walking and bicycling frequency: daily seatbelt use: always additional social history: - Meet- Self Employed- [employer] ROS ROS ED Constitutional Constitutional ED: Denies chills or fever(s) ENT ENT ED: Reports rhinorrhea and sore throat; Denies ear pain Cardiovascular Cardiovascular: Denies chest pain Respiratory/Chest Respiratory/Chest: Reports cough and dyspnea Gastrointestinal Gastrointestinal: Denies abdominal pain, diarrhea, nausea or vomiting Genitourinary Genitourinary ED: Denies dysuria Musculoskeletal Musculoskeletal: Reports myalgias Integumentary Denies rash Neurologic Neurologic: Reports headache(s) Hematologic/Lymphatic Hematologic/Lymphatic: Denies easy bleeding or easy bruising Allergic/Immunologic Allergic/Immunologic ED: Denies mouth swelling or tongue swelling EXAM Physical Exam Const Vital Signs: 03/31/24 01:44 03/31/24 01:47 Temperature 97.7 F L Temperature Source Oral Pulse Rate 104 H Respiratory Rate 22 H Respiratory Effort Normal Non-Labored Respiratory Pattern Normal Blood Pressure 154/99 H Blood Pressure Mean 117 Pulse Ox 98 Oxygen Delivery Method Room Air Positive well nourished and well developed General Appearance ED: well developed; Negative for pallor HEENT Reports moist mucous membranes HEENT Narrative: No tongue or lip swelling no oral lesions no airway edema or compromise There is cobblestoning noted in the posterior pharynx consistent with sinus drainage without secondary findings to suggest infection Eyes (more content not included)... [facility] Urgent Care Visit Reporton 0 03-29-2024 Urgent Care Visit Report [facility] [address] , [address] [place], [place] [id number] OFFICE VISIT Date of Service: 03/29/24 MR#: [id number] Acct: [id number] Name: PAO CUNNINGHAM Rep #: [id number] : 1975 Provider: ENDOSCOPY SUPPORT SPECIALIST-C Lewis H Diane f Age/Sex: 49/F [facility] [facility] Status: Signed Intake Vital Signs 02/24/24 06:20 03/29/24 11:50 Height 5 ft 4 in Weight: 239 lb BMI 41.0 BP 120/60 134/84 H Blood Pressure Location Lt brachial Position Sitting Sitting Respiration 18 Pulse 79 86 Pulse Source NIBP Temp 98.4 F 96.9 F L Temp Source Temporal Temporal Pulse Oximetry (%) 99 98 Oxygen Delivery Method room air room air Intake Visit Reasons: SINUS INFECTION Chief Complaint: congest, drainage, ear pain, ST Producer 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 Required: No Is patient in pain?: Yes Allergies No Known Allergies Allergy (Verified 03/29/24 11:49) Medications ???Medication ???Instructions ???Recorded ???Confirmed ???Type levothyroxine 150 mcg tablet 150 mcg PO .every other day 02/25/23 02/24/24 History levothyroxine 175 mcg tablet 175 mcg PO .every other day 02/25/23 02/24/24 History ibuprofen 200 mg tablet 200 mg PO Q6H PRN pain 03/15/23 02/24/24 History dvppltzs-cby-iyvt 18 mg-FA 400 1 tab PO DAILY 12/20/23 02/24/24 History mcg-calcium 500 mg-vit K 50 mcg tablet (Women's Multivitamin) valacyclovir 1 gram tablet 1,000 mg PO TID #21 tabs 02/24/24 02/24/24 Rx amoxicillin 875 mg-potassium 1 tab PO BID 7 days #14 tabs 03/29/24 03/29/24 Rx clavulanate 125 mg tablet Is last menstrual period known: No Post menopausal: Yes Patient : No Have you fallen in the past year?: No Nurse's Note: congest, drainage, ear pain, ST x 4 days. concern for sinus infection. declines covid testing. pt advised as [employer] employee there is a stong possibility they will send her here tomorrow for testing if they notice her illness. pt willing to take that risk. [facility] Medical History Wears partial dentures CPAP (continuous positive airway pressure) dependence Sleep apnea Non-smoker Fractured nose Crushing injury of right knee, sequela Hx pulmonary embolism Deep vein blood clot of right lower extremity Migraine Leg swelling Thyroid disease history of cyst on wrist history of child Surgical History Hx of colonoscopy H/O removal of cyst S/P ACL repair H/O tubal ligation Hx of tonsillectomy H/O arthroscopic knee surgery S/P cervical spinal fusion Family History Father Diabetes Colon polyp Hypothyroidism Myocardial infarction Mother Barretts esophagus Sister Hypothyroidism Grandfather Myocardial infarction Social History household members: spouse and children number of children: 3 current occupational status: employed current occupation: [employer] Smoking Status: Never smoker alcohol intake: never what type of physical activity do you participate in: walking and bicycling frequency: daily seatbelt use: always additional social history: - Meet- Self Employed- [employer] HPI HPI Chief Complaint: congest, drainage, ear pain, ST Details: PAO CUNNINGHAM, is a 49 F who presents to the office today for concerns regarding congestion, drainage, ear pain, sore throat for 4 days, but states symptoms originally began over a week ago. She declines COVID-19 testing. She states history of seasonal allergies. She has tried OTC measures with some improvement. She denies any sick contacts. ROS Const Constitutional: No body ache, chills, fatigue, fever(s), headache(s) or change in appetite Eyes Eyes: No blurry vision, change in vision, double vision, irritation, discharge, vision loss, dry eyes, bulging eyes, floaters, visual disturbances, eye pain, Light sensitivity, spots in vision, tunnel vision or other ENT ENT: Positive for ear or mastoid pain, nasal congestion, sinus pressure, sinus pain, nasal discharge, post nasal drip, dental pain, hoarseness and sore throat; No ear discharge, ear pressure, tinnitus, dizziness/vertigo, nosebleed/epistaxis, nose pain, headache(s), facial pain, difficulty swallowing, bad breath, lip swelling, mouth lesions, mouth pain, neck pain, tongue swelling or throat swelling Resp Respiratory: No cough, change in phlegm color, chest congestion, hemoptysis, pain on inspiration, shortness of breath, pain with cough, stridor or wheezing Cardio Cardiology: No chest pain at rest, chest pain with exertion, shortness of breath, dyspnea on exertion or lightheadedness Gastro GI: No abdominal pain, change in bowel habits, constipation, diarrhea, difficulty swallowing, Blood in stool or l (more content not included)... [facility] Upper Ext Joint Only(Routine )on 03-17-2024 Upper Ext Joint Only(Routine) [facility] Imaging Services [address] [place], [place] [address] Upper Ext Joint Only(Routine) MR#: [id number] Acct: [id number] Name: PAO CUNNINGHAM Rep #: [id number] : 1975 F 49 From: Christiano Low MD PCP: Dr. Sigifredo Esquivel MD Status: [facility] CL Study: Upper Ext Joint Only(Routine) Date of Exam: 0 03/17/24 Exam# [id number] Ordering Dr: Itz Katz DO [id number] EXAM: MR LEFT UPPER EXTREMITY WITHOUT INTRAVENOUS CONTRAST, ELBOW CLINICAL INDICATION: Elbow pain TECHNIQUE: Multiplanar and multisequence MR images of the left elbow without intravenous contrast. COMPARISON: No relevant prior studies available. FINDINGS: ARTIFACTS: Motion artifact limits assessment. LIGAMENTS: MEDIAL COLLATERAL: Unremarkable. Intact. LATERAL COLLATERAL: Unremarkable. Intact. ANNULAR: Unremarkable. Intact. TENDONS: BICEPS: Unremarkable. Intact. BRACHIALIS: Unremarkable. Intact. TRICEPS: Unremarkable. Intact. COMMON FLEXOR: Normal signal characteristics. COMMON EXTENSOR: Low-grade partial-thickness tear involving the common extensor tendon on a background of moderate tendinosis. MUSCLES: Unremarkable. Normal bulk and signal. FLUID: Unremarkable. No joint effusion. CARTILAGE: Unremarkable. Articular cartilage intact. BONES/JOINTS: Unremarkable. No fracture. No abnormal bone marrow signal. OTHER SOFT TISSUES: Unremarkable. The ulnar nerve is normal in the cubital tunnel. MRI/Upper Ext Joint Only(Routine) IMPRESSION: Low-grade partial-thickness tear involving the common extensor tendon on a background of moderate tendinosis. Electronically Signed: Christiano Low MD at 1:04 EDT , CC: Dr. Sigifredo Esquivel MD; Dr. Itz Katz DO Hydrology Professor: Signed [facility] Thyroid Stim Immunoglobon THY STIM IMMUNO <0.10 Normal 0.00-0.55 [facility] Comment on above: Result Comment: Perf ormed at: [facility] [id number] [employer] Weaver: Wayne Alvarado MD, Phone: [phone] Performed By: #### L 506.0400, L501.68994, L3400.4700, L501.8520 ####[facility] [address] [place], [address] CBC, Employeeon 02-28-2024 Absolute Lymph 3.75 X10 3/uL Normal 0.83-4.51 [facility] Comment on above: Performed By: #### L 400.0100, L100.0200, L500.2900 ####[facility] [address] [place], [address] Absolute Neut 8.0 X10 3/uL High 2.0-7.7 [facility] Comment on above: Performed By: #### L 400.0100, L100.0200, L500.2900 ####[facility] [address] [place], [address] Basophils/100 WBC (Bld) 0.3 % Normal 0-1 [facility] Comment on above: Performed By: #### L 400.0100, L100.0200, L500.2900 ####[facility] [address] [place], [address] Eosinophils/100 WBC (Bld) 0.4 % Normal 0-5 [facility] Comment on above: Performed By: #### L 400.0100, L100.0200, L500.2900 ####[facility] [address] [place], [address] Erythrocyte distribution width (RBC) [Ratio] 14.6 % Normal 11.6-14.6 [facility] Comment on above: Performed By: #### L 400.0100, L100.0200, L500.2900 ####[facility] [address] [place], [address] Hematocrit (Bld) [Volume fraction] 38.4 % Normal 37-47 [facility] Comment on above: Performed By: #### L 400.0100, L100.0200, L500.2900 ####[facility] [address] [place], [address] Hemoglobin (Bld) [Mass/Vol] 12.3 g/dL Normal 12.0-15.0 [facility] Comment on above: Performed By: #### L 400.0100, L100.0200, L500.2900 ####[facility] [address] [place], [address] Lymphocytes/100 WBC (Bld) 29.4 % Normal 19-41 [facility] Comment on above: Performed By: #### L 400.0100, L100.0200, L500.2900 ####[facility] [address] [place], [address] MCH (RBC) [Entitic mass] 28.1 pg Normal 27.0-32.0 [facility] Comment on above: Performed By: #### L 400.0100, L100.0200, L500.2900 ####[facility] [address] [place], [address] MCHC (RBC) [Mass/Vol] 32.0 g/dL Normal 32-36 [facility] Comment on above: Performed By: #### L 400.0100, L100.0200, L500.2900 ####[facility] [address] [place], [address] MCV (RBC) [Entitic vol] 87.7 fL Normal 81-99 [facility] Comment on above: Performed By: #### L 400.0100, L100.0200, L500.2900 ####[facility] [address] [place], [address] Monocytes/100 WBC (Bld) 6.7 % Normal 0-10 [facility] Comment on above: Performed By: #### L 400.0100, L100.0200, L500.2900 ####[facility] [address] [place], [address] Neutrophils/100 WBC (Bld) 62.7 % Normal 47-70 [facility] Comment on above: Performed By: #### L 400.0100, L100.0200, L500.2900 ####[facility] [address] [place], [address] NRBC # 0.00 10 3/uL Normal 0-5 [facility] Comment on above: Performed By: #### L 400.0100, L100.0200, L500.2900 ####[facility] [address] [place], [address] Nucleated RBC (Bld) [#/Vol] 0 10*3/uL Normal 0-5 [facility] Comment on above: Performed By: #### L 400.0100, L100.0200, L500.2900 ####[facility] [address] [place], [address] Platelet mean volume (Bld) [Entitic vol] 9.0 fL Normal 6.2-12.0 [facility] Comment on above: Performed By: #### L 400.0100, L100.0200, L500.2900 ####[facility] [address] [place], [address] Platelets (Bld) [#/Vol] 301 10*3/uL Normal 150-450 [facility] Comment on above: Performed By: #### L 400.0100, L100.0200, L500.2900 ####[facility] [address] [place], [address] RBC (Bld) [#/Vol] 4.38 10*6/uL Normal 4.2-5.4 [facility] Comment on above: Performed By: #### L 400.0100, L100.0200, L500.2900 ####[facility] [address] [place], [address] RDW SD 46.7 fl High 35.1-43.9 [facility] Comment on above: Performed By: #### L 400.0100, L100.0200, L500.2900 ####[facility] [address] [place], [address] WBC (Bld) [#/Vol] 12.8 10*3/uL High 4.4-11.0 [facility] Comment on above: Performed By: #### L 400.0100, L100.0200, L500.2900 ####[facility] [address] [place], [address] Employee Profileon 4 Albumin [Mass/Vol] 3.2 g/dL Normal 3.2-5.0 [facility] Comment on above: Performed By: #### L 400.0100, L100.0200, L500.2900 ####[facility] [address] [place], [address] Albumin/Globulin [Mass ratio] 0.9 {ratio} Normal 0.9-2.4 [facility] Comment on above: Performed By: #### L 400.0100, L100.0200, L500.2900 ####[facility] [address] [place], [address] ALK P 48 U/L Normal 45-117 [facility] Comment on above: Performed By: #### L 400.0100, L100.0200, L500.2900 ####[facility] [address] [place], [address] ALT [Catalytic activity/Vol] 21 U/L Normal 13-56 [facility] Comment on above: Performed By: #### L 400.0100, L100.0200, L500.2900 ####[facility] [address] [place], [address] AST [Catalytic activity/Vol] 10 U/L Low 15-37 [facility] Comment on above: Performed By: #### L 400.0100, L100.0200, L500.2900 ####[facility] [address] [place], [address] Bilirubin [Mass/Vol] 0.30 mg/dL Normal 0.20-1.00 [facility] Comment on above: Result Comment: For patients on eltrombopag therapy, use of Dimension [place] TBIL is not recommended. Performed By: #### L 400.0100, L100.0200, L500.2900 ####[facility] [address] [place], [address] Bilirubin.direct [Mass/Vol] 0.12 mg/dL Normal 0.00-0.30 [facility] Comment on above: Performed By: #### L 400.0100, L100.0200, L500.2900 ####[facility] [address] [place], [address] BUN/CRE 28.2 RATIO High 10-20 [facility] Comment on above: Performed By: #### L 400.0100, L100.0200, L500.2900 ####[facility] [address] [place], [address] CA,Total 8.6 mg/dL Normal 8.5-10.1 [facility] Comment on above: Performed By: #### L 400.0100, L100.0200, L500.2900 ####[facility] [address] [place], [address] Chloride [Moles/Vol] 108 mmol/L High 98-107 [facility] Comment on above: Performed By: #### L 400.0100, L100.0200, L500.2900 ####[facility] [address] [place], [address] CHOL:HDL 2.10 Normal [facility] Comment on above: Performed By: #### L 400.0100, L100.0200, L500.2900 ####[facility] [address] [place], [address] Cholesterol [Mass/Vol] 137 mg/dL Normal 200 [facility] Comment on above: Result Comment: <200 mg/dL Desirable 200-240 mg/dL Borderline >240 mg/dL High Risk Performed By: #### L 400.0100, L100.0200, L500.2900 ####[facility] [address] [place], [address] Cholesterol in HDL [Mass/Vol] 64 mg/dL Normal [facility] Comment on above: Result Comment: The drugs N-Acetylcysteine and Metamizole may falsely depress this assay. Reference Range HDL <40 mg/dL Low HDL Cholesterol HDL >or= 60 mg/dL High HDL Cholesterol Performed By: #### L 400.0100, L100.0200, L500.2900 ####[facility] [address] [place], [address] Cholesterol in LDL [Mass/Vol] 46 mg/dL Normal 0-130 [facility] Comment on above: Performed By: #### L 400.0100, L100.0200, L500.2900 ####[facility] [address] [place], [address] Cholesterol in VLDL [Mass/Vol] 27 mg/dL Normal 5-40 [facility] Comment on above: Performed By: #### L 400.0100, L100.0200, L500.2900 ####[facility] [address] [place], [address] CO2 [Moles/Vol] 26.0 mmol/L Normal 21.0-32.0 [facility] Comment on above: Performed By: #### L 400.0100, L100.0200, L500.2900 ####[facility] [address] [place], [address] Creatinine [Mass/Vol] 0.85 mg/dL Normal 0.55-1.02 [facility] Comment on above: Result Comment: The validity of the calculated GFR GFRAA in patients over 70 years has not been determined. Clinical correlation is essential. Performed By: #### L 400.0100, L100.0200, L500.2900 ####[facility] [address] [place], [address] EST GFR - AA 91 mL/min Normal >60 [facility] Comment on above: Result Comment: Afri can Nepalese GFR Calc Performed By: #### L 400.0100, L100.0200, L500.2900 ####[facility] [address] [place], [address] GAP 5 Normal 5-15 [facility] Comment on above: Performed By: #### L 400.0100, L100.0200, L500.2900 ####[facility] [address] [place], [address] GFR/1.73 sq M.predicted among non-blacks MDRD (S/P/Bld) [Vol rate/Area] 75 mL/min/{1.73_m2} Normal >60 [facility] Comment on above: Result Comment: Non- GFR Calc Performed By: #### L 400.0100, L100.0200, L500.2900 ####[facility] [address] [place], [address] Globulin (S) [Mass/Vol] 3.7 g/dL Normal 2.2-4.2 [facility] Comment on above: Performed By: #### L 400.0100, L100.0200, L500.2900 ####[facility] [address] [place], [address] Glucose [Mass/Vol] 81 mg/dL Normal 74-106 [facility] Comment on above: Performed By: #### L 400.0100, L100.0200, L500.2900 ####[facility] [address] [place], [address] LDH 142 U/L Normal 84-246 [facility] Comment on above: Performed By: #### L 400.0100, L100.0200, L500.2900 ####[facility] [address] [place], [address] Phosphate [Mass/Vol] 2.6 mg/dL Normal 2.5-4.9 [facility] Comment on above: Performed By: #### L 400.0100, L100.0200, L500.2900 ####[facility] [address] [place], [address] Potassium [Moles/Vol] 3.9 mmol/L Normal 3.5-5.1 [facility] Comment on above: Performed By: #### L 400.0100, L100.0200, L500.2900 ####[facility] [address] [place], [address] Sodium [Moles/Vol] 139 mmol/L Normal 136-145 [facility] Comment on above: Performed By: #### L 400.0100, L100.0200, L500.2900 ####[facility] [address] [place], [address] T PROT 6.9 g/dL Normal 6.4-8.2 [facility] Comment on above: Performed By: #### L 400.0100, L100.0200, L500.2900 ####[facility] [address] [place], [address] Triglyceride [Mass/Vol] 133 mg/dL Normal [facility] Comment on above: Result Comment: The drugs N-Acetylcysteine and Metamizole may falsely depress this assay. Serum Triglycerides Reference Interval Normal <150 mg/dL Borderline high 150 - 199 mg/dL High 200 - 499 mg/dL Very High > or = 500 mg/dL Performed By: #### L 400.0100, L100.0200, L500.2900 ####[facility] [address] [place], [address] Urea nitrogen [Mass/Vol] 24 mg/dL High 7-18 [facility] Comment on above: Performed By: #### L 400.0100, L100.0200, L500.2900 ####[facility] [address] [place], [address] URIC 5.3 mg/dL Normal 2.6-6.0 [facility] Comment on above: Result Comment: The drugs N-Acetylcysteine and Metamizole may falsely depress this assay. Performed By: #### L 400.0100, L100.0200, L500.2900 ####[facility] [address] [place], [address] Free T3on 02-28-2024 Free T3 [Mass/Vol] 1.9 pg/mL Low 2.18-3.98 [facility] Comment on above: Performed By: #### L 506.0400, L501.03575, L3400.4700, L501.9520 ####[facility] [address] [place], [address] T4 Free Directon 02-28-2024 T4 FREE DIRECT 1.15 ng/dL Normal 0.76-1.46 [facility] Comment on above: Performed By: #### L 506.0400, L501.63359, L3400.4700, L501.9520 ####[facility] [address] [place], [address] Thyroid Stim Hormone (TSH)on 02-28-2024 TSH 0.49 uIU/mL Normal 0.358-3.74 [facility] Comment on above: Performed By: #### L 506.0400, L501.12402, L3400.4700, L501.9520 ####[facility] [address] [place], [address] Urinalysis, Employeeon 02-27 BILIRUBIN URINE Negative Normal Negative [facility] Comment on above: Performed By: #### L 400.0100, L100.0200, L500.2900 ####[facility] [address] [place], [address] Clarity (U) Sl. Cloudy Normal Clear [facility] Comment on above: Performed By: #### L 400.0100, L100.0200, L500.2900 ####[facility] [address] [place], [address] Color (U) Yellow Normal Yellow [facility] Comment on above: Performed By: #### L 400.0100, L100.0200, L500.2900 ####[facility] [address] [place], [address] GLUCOSE, UR Normal Normal Normal [facility] Comment on above: Performed By: #### L 400.0100, L100.0200, L500.2900 ####[facility] [address] [place], [address] KETONE UR Negative Normal Negative [facility] Comment on above: Performed By: #### L 400.0100, L100.0200, L500.2900 ####[facility] [address] [place], [address] LEUK ESTERASE 100 /ul Abnormal Negative [facility] Comment on above: Performed By: #### L 400.0100, L100.0200, L500.2900 ####[facility] [address] [place], [address] Nitrite Ql (U) Negative Normal Negative [facility] Comment on above: Performed By: #### L 400.0100, L100.0200, L500.2900 ####[facility] [address] [place], [address] OCCULT BLOOD-UR 250 /ul Abnormal Negative [facility] Comment on above: Performed By: #### L 400.0100, L100.0200, L500.2900 ####[facility] [address] [place], [address] pH UR 6.0 Normal 5.0 - 8.0 [facility] Comment on above: Performed By: #### L 400.0100, L100.0200, L500.2900 ####[facility] [address] [place], [address] PROT DIPSTX Negative Normal Negative [facility] Comment on above: Performed By: #### L 400.0100, L100.0200, L500.2900 ####[facility] [address] [place], [address] SP.GR. DIPSTX 1.020 Normal 1.002-1.03 0 [facility] Comment on above: Performed By: #### L 400.0100, L100.0200, L500.2900 ####[facility] [address] [place], [address] UROBILI Normal Normal Normal [facility] Comment on above: Performed By: #### L 400.0100, L100.0200, L500.2900 ####[facility] [address] [place], [address] Urgent Care Visit Reporton 0 02-24-2024 Urgent Care Visit Report [facility] [address] [place], [place] [address] OFFICE VISIT Date of Service: 02/24/24 MR#: [id number] Acct: [id number] Name: PAO CUNNINGHAM Rep #: [id number] : 1975 Provider: BRENDA Frias Age/Sex: 49/F Location[place] [facility] Status: Signed Intake Vital Signs 02/12/24 14:59 02/24/24 06:20 Height 5 ft 4 in 5 ft 4 in Weight: 239 lb 6 oz 239 lb BMI 41.1 41.0 BP 120/60 Position Sitting Pulse 79 Temp 98.4 F Temp Source Temporal Pulse Oximetry (%) 99 Oxygen Delivery Method room air Intake Visit Reasons: RASH ON NECK, BEHIND RT EAR, RT CHEEK Accompanied by: Self Is patient in pain?: No Allergies No Known Allergies Allergy (Verified 02/24/24 06:21) Medications ???Medication ???Instructions ???Recorded ???Confirmed ???Type levothyroxine 150 mcg tablet 150 mcg PO .every other day 02/25/23 02/24/24 History levothyroxine 175 mcg tablet 175 mcg PO .every other day 02/25/23 02/24/24 History ibuprofen 200 mg tablet 200 mg PO Q6H PRN pain 03/15/23 02/24/24 History depfdfcl-ahb-vhvm 18 mg-FA 400 1 tab PO DAILY 12/20/23 02/24/24 History mcg-calcium 500 mg-vit K 50 mcg tablet (Women's Multivitamin) prednisone 10 mg tablet 10 mg PO DAILY #30 tabs 02/24/24 02/24/24 Rx valacyclovir 1 gram tablet 1,000 mg PO TID #21 tabs 02/24/24 02/24/24 Rx PFSH Medical History Wears partial dentures CPAP (continuous positive airway pressure) dependence Sleep apnea Non-smoker Fractured nose Crushing injury of right knee, sequela Hx pulmonary embolism Deep vein blood clot of right lower extremity Migraine Leg swelling Thyroid disease history of cyst on wrist history of child Surgical History Hx of colonoscopy H/O removal of cyst S/P ACL repair H/O tubal ligation Hx of tonsillectomy H/O arthroscopic knee surgery S/P cervical spinal fusion Family History Father Diabetes Colon polyp Hypothyroidism Myocardial infarction Mother Barretts esophagus Sister Hypothyroidism Grandfather Myocardial infarction Social History household members: spouse and children number of children: 3 current occupational status: employed current occupation: [employer] Smoking Status: Never smoker alcohol intake: never what type of physical activity do you participate in: walking and bicycling frequency: daily seatbelt use: always additional social history: - Meet- Self 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 No complaints of fever, chills, sweats, lightheadedness/dizziness, nausea/vomiting, cough, or chest pressure/shortness of breath/dyspnea on exertion. Chickenpox as a child. No close contacts with similar complaints. No zmca-esw-xamzynb products taken to assist. No other associated symptoms and no other alleviating/aggravating factors. ROS Const Constitutional: No other (As above) Exam Const General: cooperative, healthy appearing and no acute distress Nutritional Appearance: average body habitus Orientation: alert and awake [facility] Head: normal to inspection Ears: hearing grossly normal bilaterally and external ears normal Nose: external nose normal and no nasal discharge Eyes General: appearance normal, both eyes and all related structures Neck Neck: normal visual inspection and no meningeal signs Chest Chest palpation inspection: normal inspection of the chest Resp Effort Inspection: normal respiratory effort and able to speak in complete sentences Cardio Rate: regular rate Pulses: radial pulses present GI Inspection: normal to inspection Skin General: no rashes or lesions noted (Except clustered vesicular rash to right neck/ face/ scalp) Neuro General: patient alert, patient awake, patient oriented x3 and gait normal Cognition: normal cognition Speech: speech normal Psych Appearance: grossly normal Mental Status: mental status grossly normal Mood: congruent mood Affect: normal affect Speech and Movement: speech and movement normal Attitude: cooperative Diagnoses Shingles B02.9 Assessment and Plan Assessment and Plan (1) Shingles: Status: Acute Plan: Valtrex and prednisone as prescribed today. Supportive measures as instructed today. Follow-up with PCP in 7 to 10 days should symptoms not improve, sooner should symptoms only worsen or any other concerns develop. Patient states acknowledging und (more content not included)... Normal [facility] Elbow min 3 Viewson 02-12-20 Elbow min 3 Views [facility] Imaging Services [address] [place] [address] Elbow min 3 Views MR#: [id number] Acct: [id number] Name: PAO CUNNINGHAM Rep #: [id number] : 1975 F 49 From: Slick Iglesias PCP: Dr. Sigifredo Esquivel MD Status: REG CLI Study: Elbow min 3 Views Date of Exam: 02/12/24 Exam# [id number] Ordering Dr: Itz Katz DO [id number] STUDY: X-RAY - LEFT ELBOW REASON FOR EXAM: Female, 49 years old. pain TECHNIQUE: 4 view(s) of the elbow. COMPARISON: None. FINDINGS: Normal visualized humerus, radius and ulna. Normal radiocapitellar and ulnotrochlear articulations. The soft tissue structures are unremarkable. RAD/Elbow min 3 Views IMPRESSION: Normal x-ray examination of the elbow. Electronically Signed: Slick Mtz MD at 23:52 EDT Reading Location ID and State: [facility] / [place] Tel , Service support , CC: Dr. Sigifredo Esquivel MD; Dr. Itz Katz DO Hydrology Professor: Signed Normal [facility] Orthopedic Visit Reporton Orthopedic Visit Report [facility] [address] [place] [address] [address] [place] [address] OFFICE VISIT Date of Service: 02/12/24 MR#: [id number] Acct: [id number] Name: PAO CUNNINGHAM Rep #: [id number] : 1975 Provider: Dr. Itz wu DO Age/Sex: 49/F Location[place] [facility] Status: Signed Intake Vital Signs 08/15/23 14:29 02/12/24 14:59 Height 5 ft 4 in 5 ft 4 in Weight: 239 lb 6 oz BMI 41.1 Intake Visit Reasons: LEFT ELBOW Chief Complaint: Left elbow pain Accompanied by: Self Is patient in pain?: Yes (bending and straightening it ) Pain scale (1-10): 7 Allergies No Known Allergies Allergy (Verified 02/12/24 15:01) Medications ???Medication ???Instructions ???Recorded ???Confirmed ???Type levothyroxine 150 mcg tablet 150 mcg PO .every other day 02/25/23 02/12/24 History levothyroxine 175 mcg tablet 175 mcg PO .every other day 02/25/23 02/12/24 History ibuprofen 200 mg tablet 200 mg PO Q6H PRN pain 03/15/23 02/12/24 History tlccgbix-xur-lljs 18 mg-FA 400 1 tab PO DAILY 12/20/23 02/12/24 History mcg-calcium 500 mg-vit K 50 mcg tablet (Women's Multivitamin) PFSH Medical History Wears partial dentures CPAP (continuous positive airway pressure) dependence Sleep apnea Non-smoker Fractured nose Crushing injury of right knee, sequela Hx pulmonary embolism Deep vein blood clot of right lower extremity Migraine Leg swelling Thyroid disease history of cyst on wrist history of child Surgical History Hx of colonoscopy H/O removal of cyst S/P ACL repair H/O tubal ligation Hx of tonsillectomy H/O arthroscopic knee surgery S/P cervical spinal fusion Family History Father Diabetes Colon polyp Hypothyroidism Myocardial infarction Mother Barretts esophagus Sister Hypothyroidism Grandfather Myocardial infarction Social History household members: spouse and children number of children: 3 current occupational status: employed current occupation: [employer] Smoking Status: Never smoker alcohol intake: never what type of physical activity do you participate in: walking and bicycling frequency: daily seatbelt use: always additional social history: - Meet- Self Employed- [employer] HPI LEFT ELBOW Details: This documentation accurately reflects the service provided and the decisions made by me, Dr. Itz Katz, DO 02/12/24 1302. Part of today???s visit was documented by [ ], acting as scribe. PAO CUNNINGHAM is a 49 year old F here today for her left elbow. Patient is ambidextrous she admits to increased activity with mulching earlier in the year and her lateral elbow pain started at that time she was [facility] in [facility] 20, 2019 for they did prescribe her a Medrol Dosepak and physical therapy subsequently her lateral elbow pain resolved however she is having a different type of pain now deep inside the elbow joint and getting a locking sensation where she feels something is physically blocking her range of motion into extension for about 45 degrees. She did about 6 sessions of occupational therapy she also admits to painful cracking she has tried ice and heat. Denies any fevers chills or recent infections She complains of pain in the posterior elbow with extension and deep in the antecubital fossa with flexion Ortho Exam General General: Yes no acute distress (BMI 41.1) and Yes well groomed Neurologic: Yes alert and Yes oriented x3 Psychologic: Yes reasonable and appropriate Left Elbow Skin/Wound: No eccymosis, No erythema and No Swelling Test: No TTP Medial Epicondyle, No TTP Lateral Epicondyle, No Pain w/ resist wrist ext, No Pain w/ resist wrist flex, No Pain w/ resist pronation and No Ulnar Nerve Subluxation ROM: Yes Flexion 0-140, Supination 0-90 and Pronation 0-80; No Extension 0 Sensation: Radial: I, Ulnar: I and Median: I ELBOW: There is no erythema ecchymosis signs of cellulitis infection there is no joint effusion. She is nontender over the medial or lateral epicondyle she has no reproduction of pain with resisted wrist extension or long or middle finger resisted extension. She does lack about 10 degrees of extension she does have full flexion supination pronation she does have an intact biceps and triceps tendon there is no crepitation that I can feel on range of motion Coding Level of Care Code Off vis,new,level 3 Diagnoses Elbow pain, left M25.522 Assessment and Plan Assessment and Plan (1) Elbow pain, left: Status: Acute Orders: Orders Elbow min 3 Views Today M25.522 - Pain in left elbow Upper Ex (more content not included)... Normal [facility] OT D/C Summaryon 01-30-2024 OT D/C Summary [facility] Occupational [facility] [address] [place] [address] / REHABILITATION SERVICES DISCHARGE SUMMARY MR#: [id number] Acct: [id number] Name: PAO CUNNINGHAM Rep #: [id number] : 1975 49 From: Minerva Muse Referring Dr.: BRENDA Olivarez Status: REG RCR Eval Date: Discharge Date: Discharge Summary D/C Summary: It has been my pleasure to treat PAO CUNNINGHAM under orders from BRENDA Olivarez, for the diagnosis of Left Lateral Epicondylitis M77.12 for a total of 5 visit(s). Please see the following information for a summary of their discharge status. Overall Improvement % Improvement: 85 Objective Objective/Function: patient appointment coordinator strength elbow bent 40 elbow straight 30 pounds pain at rest 0 Goals Patient Goals: Regain Strength, Decrease Pain and Decrease Swelling/Stiffness Goal:: pt will improve L patient appointment coordinator strength equal to non affected UE (RUE 80) in order to complete day to day functional tasks 40 at side and 30 extended not met pt will improve L lateral pinch strength equal to non affected UE (RUE 12) in order to complete day to day functional tasks not met pt will improve L tripod pinch strength equal to non affected UE (RUE 12) in order to complete day to day functional tasks not met Goal:: pt will improve L elbow flexion to 170 degrees or more in order to improve day to day activities not met pt will improve L elbow extension to 0 degrees in order to improve day to day activities met pt will improve L forearm supination equal to non affected UE (R 75) in order to improve day to day activities Goal:: pt will decrease L elbow pain to 2/10 or less during movements for improved I in functional tasks met Goal:: pt will verbalize/ demonstrate 100% accuracy in L UE positioning during functional tasks in order to assure reduction of pain and improved function goal met Goal:: pt will improve quick dash score by 2 points in order to improve overall use of LUE Goal:: pt will demonstrate 100% adherence to bracing of L UE for pain management by third session goal met Plan Plan: discharge this date as pt lateral epicondylitis symptoms have resolved pt to go to ortho specialist to consult about pain she is having with elbow extension and flexion with feeling of click at 8/10 pain D/C Information Discharge Comments: pt presents with dx of lateral epicondylitis and has progressed throught phases of lateral epi with no pain at rest pain only with elbow flex and ext with elbow clicking / popping. ed provided on shoulder stretch as well as isometric lateral epi extensor massage, stretches as well as eccentric exercise and pt progresses through with no pain at this time. pt to go to ortho specialist d/c sentence: If there are questions or concerns regarding this patient's occupational therapy, please fell free to call me at [phone]. Thank you for the referral of this patient. Sincerely, Min[place] 01/30/24 8906 CC: BRENDA Olivarez; Dr. Sigifredo Esquivel MD CK Signed Normal [facility] OT D/C of Non Returning Pton 01-30-2024 OT D/C of Non Returning Pt [facility] Occupational Therapy [address] [place] [address] / REHABILITATION SERVICES DISCHARGE SUMMARY MR#: [id number] Acct: [id number] Name: PAO CUNNINGHAM Rep #: [id number] : 1975 49 From: Minerva Muse Referring Dr.: BRENDA Olivarez Status: REG RCR Eval Date: Discharge Date: Patient Information Patient Information: PAO CUNNINGHAM was seen in my office for initial evaluation on 01/08/24. The following Plan of Care was established for this patient: POC Established Initial Frequency: 2x /Week Initial Duration: 6 Weeks Plan: discharge this date as pt lateral epicondylitis symptoms have resolved pt to go to ortho specialist to consult about pain she is having with elbow extension and flexion with feeling of click at 8/10 pain Anticipated Interventions Anticipated Interventions: A/AAROM/PROM, Strengthening, Edema Control, Triggerpoint Release, Modalities, Joint Protection/Energy Conservation, Education re assistive Equipment, Education re [facility] and Home Program Last Seen Last Seen: This patient was last seen in our office 01/30/24. Pertinent comments regarding their Occupational therapy will appear below: This pt seen for dx of lateral epicondylitis and progressed through POC with relief of symptoms relating to dx. pt progressed through phases now able to perform eccentric strengthening with weights pain free. pt to go see ortho specialist regarding elbow pain felt with flex/ext and a clicking sensation. pt is in agreeance with discharge At this point I will be discontinuing this patient from occupational therapy. I would be happy to see this patient again in the future if found appropriate by the physician. Thank you! Minerva Muse 01/30/24 1540 CC: BRENDA Olivarez; Dr. Sigifredo Esquivel MD CK Signed [facility] OT General Evaluationon OT General Evaluation [facility] Occupational Therapy [address] [place] [address] / REHABILITATION SERVICES INITIAL EVALUATION MR#: [id number] Acct: [id number] Name: PAO CUNNINGHAM Rep #: [id number] : 1975 48 From: Minerva Muse Referring Dr.: BRENDA Olivarez Status: REG RCR Insurance: Vino Vol[employer]/[facility] Eval Date: SELF PAY INSURANCE Patient's Visit Information Visit Information Visit Information: PAO CUNNINGHAM is a 48 year old F, referred to Occupational Therapy by BRENDA Olivarez, with a diagnosis of Left Lateral Epicondylitis M77.12. Date of Evaluation: 01/08/24 Occupational Therapist: Minerva Muse Subjective Subjective: This 48 year old female referred to OT due to dx of lateral epicondylitis. Per pt her pain started end of october early november approx 8-9 weeks ago. having pain along L extensor mass. Possible trigger to pain is multching. writs with L hand predominantly R handed. 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 pt was provided with steriod pack 12/23/23. pt reports helped about 80% however still feels there is swelling in there. started stretches which were painful to complete. Pain L elbow: Current Pain Intensity: 6 Objective Objective/Observation: presents with swelling noted at extensor mass. pain with elbow flexion as well as extension. pt reports an occ lock and freeze of elbow in flexion as well as occ clicking. 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 Pr Specialist: L patient appointment coordinator at 90 55# straight elbow 30# R 80# both directions Lateral Pinch: L 5# R 12# Tripod Pinch: L 8# R 12# Edema Other: L 30.5 cm and RUE 29.5 cm Sensation Sensation Comments: denies Quick DASH-Disab of Arm,Shoulder Hand Quick DASH Score: 4.5450 Goals Goal:: pt will improve L patient appointment coordinator strength equal to non affected UE (RUE 80) in order to complete day to day functional tasks pt will improve L lateral pinch strength equal to non affected UE (RUE 12) in order to complete day to day functional tasks pt will improve L tripod pinch strength equal to non affected UE (RUE 12) in order to complete day to day functional tasks Goal:: pt will improve L elbow flexion to 170 degrees or more in order to improve day to day activities pt will improve L elbow extension to 0 degrees in order to improve day to day activities pt will improve L forearm supination equal to non affected UE (R 75) in order to improve day to day activities Goal:: pt will decrease L elbow pain to 2/10 or less during movements for improved I in functional tasks Goal:: pt will verbalize/ demonstrate 100% accuracy in L UE positioning during functional tasks in order to assure reduction of pain and improved function Goal:: pt will improve quick dash score by 2 points in order to improve overall use of LUE Goal:: pt will demonstrate 100% adherence to bracing of L UE for pain management by third session Rehabilitation General Assessment: This 48 year old female presents with dx of lateral epicondylitis. Pt reporting pain along extensor mass as well as medial dorsal portion of tricep. Pt states pain started approx 8-10 weeks ago. pt seen at urgent clinic 12/20/23 and started steriod pack 12/23/23. pt states this helped some but still has pain and some swelling. pt is limited in daily functional use and has pain during all functional tasks including work. This pt would benefit from OT services in order to decrease pain swelling training in positioning as well as stretch and strengthening once appropriate. Anticipated Interventions Anticipated Interventions: A/AAROM/PROM, Strengthening, Edema Control, Triggerpoint Release, Modalities, Joint Protection/Energy Conservation, Education re assistive Equipment, Education re Diagnosis and Home Program Visit Plan Frequency: 2x /Week Duration: 6 Weeks General Plan: modalities trigger point massage progression to stretch strengthening bracing TEXT: Thank you for the opportunity to evaluate your patient. For Medicare and Medicare HMO plans, please review the plan of care and approve it. It will need to be FAXED BACK to us at [phone] for Medicare purposes. Please let me know if there are questions or concerns regarding this plan of care. Physician Signature: Date: 01/08/24 1819 CC: BRENDA Olivarez; Dr. Sigifredo Esquivel MD CK Signed For Medicare only, by signing this I certify the plan of care. __ Physicians Signature Date [facility] Urgent Care Visit Reporton 0 12-20-2023 Urgent Care Visit Report [facility] [address], [address] [place] [address] OFFICE VISIT Date of Service: 12/20/23 MR#: [id number] Acct: [id number] Name: PAO CUNNINGHAM Rep #: [id number] : 1975 Provider: BRENDA Olivarez Age/Sex: 48/F Location[place] [facility] Status: Signed Intake Vital Signs 08/15/23 14:29 12/20/23 15:56 Height 5 ft 4 in BP 132/90 H Blood Pressure Location Rt brachial Position Sitting Respiration 14 Pulse 68 Pulse Source Monitor Temp 98.7 F Temp Source Temporal Pulse Oximetry (%) 98 Oxygen Delivery Method room air Intake Visit Reasons: L ELBOW PAIN Chief 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 Accompanied by: Self Is patient in pain?: No Allergies No Known Allergies Allergy (Verified 12/20/23 15:51) Medications ???Medication ???Instructions ???Recorded ???Confirmed ???Type levothyroxine 150 mcg tablet 150 mcg PO .every other day 02/25/23 12/20/23 History levothyroxine 175 mcg tablet 175 mcg PO .every other day 02/25/23 12/20/23 History ibuprofen 200 mg tablet 200 mg PO Q6H PRN pain 03/15/23 12/20/23 History methylprednisolone 4 mg tablets in 4 mg PO PER PKG DIR 6 days #21 tabs 12/20/23 12/20/23 Rx a dose pack (Medrol (Natan)) [id number] 18 mg-FA 400 1 tab PO DAILY 12/20/23 12/20/23 History mcg-calcium 500 mg-vit K 50 mcg tablet (Women's Multivitamin) PFSH Medical History CPAP (continuous positive airway pressure) dependence Crushing injury of right knee, sequela Deep vein blood clot of right lower extremity Fractured nose history of child history of cyst on wrist Hx pulmonary embolism Leg swelling Migraine Non-smoker Sleep apnea Thyroid disease Wears partial dentures Surgical History H/O arthroscopic knee surgery H/O removal of cyst H/O tubal ligation Hx of colonoscopy Hx of tonsillectomy S/P ACL repair S/P cervical spinal fusion Family History Father Diabetes Colon polyp Hypothyroidism Myocardial infarction Mother Barretts esophagus Sister Hypothyroidism Grandfather Myocardial infarction Social History (Updated 08/15/23 @ 14:29 by Mi Potter) household members: spouse and children number of children: 3 current occupational status: employed current occupation: [employer] Smoking Status: Never smoker alcohol intake: never what type of physical activity do you participate in: walking and bicycling frequency: daily seatbelt use: always additional social history: - Meet- Self Employed- [employer] HPI Chief Complaint: Left elbow pain Details: PAO CUNNINGHAM, is a 48 F who presents to the office today for complaint of left elbow pain for the past 2 weeks. Patient states that she has been doing quite a bit of yard work, gardening and land scaping and started having left elbow pain thereafter. Patient states that she tries to straighten her left arm she has pain. She denies numbness or loss of range of motion however has had some tingling in her fingers. No previous injuries to the same. No other associated symptoms or alleviating/aggravating factors. ROS Const Constitutional: Positive for other (ROS negative x6 except what was placed in HPI) Exam Const General: cooperative and healthy appearing Skin General: no rashes or lesions noted Neuro General: patient alert Extrem General: capillary refill normal Other: Pain to palpation over the left lateral elbow area. Appropriate sensation light touch and capillary refill intact throughout. Psych Appearance: grossly normal Mental Status: mental status grossly normal Coding Level of Care Code Off vis,est,level 3 Diagnoses Left lateral epicondylitis M77.12 Assessment and Plan Assessment and Plan (1) Left lateral epicondylitis: Status: Acute Orders: Referrals Physical Therapy Referral M77.12 - Lateral epicondylitis, left elbow Medications: New methylprednisolone (Medrol (Natan)) 4 mg PO PER PKG DIR 6 days 21 tabs 0RF Plan Medrol Dosepak as prescribed today. Patient also given a referral to physical therapy. Advised to use RICE techniques as well as Tylenol or ibuprofen for pain unless contraindicated. To follow-up with PCP or orthopedics in 2 to 3 weeks if no better or sooner if worse. Patient verbalized understanding and agreement with all the above. 12/20/23 1623 Date Timothy Silverio Signature: Date (if applicable) CC: [facility] Laboratory - Chemistry and C hemistry - challengeOrdered By: Ifeanyi Ramos on 06-20-2023 Free T4 [Mass/Vol] 1.06 ng/dL 0.76-1.46 [facility] No Panel InformationOrdered By: Ifeanyi Ramos on 06-20-2023 Thyroid Stimulating Hormone (TSH) 2.98 uIU/mL 0.358-3.74 [facility] Absolute lymphocyte countOrd ered By: Ifeanyi Ramos on 04-11-2023 Lymphocytes Auto (Unsp spec) [#/Vol] 1.62 10*3/uL 0.83-4.51 [facility] Basophil percentageOrdered B y: Ifeanyi Ramos on 04-11-2023 Basophils/100 WBC (Bld) 0.7 % 0-1 [facility] Bilirubin [Mass/Vol] 0.40 mg/dL 0.20-1.00 [facility] Comment on above: For patients on eltr ombopag therapy, use of Dimension [place] TBIL is not recommended. Chloride [Moles/Vol] 108 mmol/L 98-107 [facility] Eosinophils/100 WBC (Bld) 1.6 % 0-5 [facility] Glucose [Mass/Vol] 115 mg/dL 74-106 [facility] Comment on above: Fasting Glucose resu lt from 100 to 125 mg/dL suggests IMPAIRED HOMEOSTASIS per A.D.A. criteria. Neutrophils (Bld) [#/Vol] 6.7 10*3/uL 2.0-7.7 [facility] Neutrophils/100 WBC (Bld) 72.3 % 47-70 [facility] Potassium [Moles/Vol] 3.6 mmol/L 3.5-5.1 [facility] Protein [Mass/Vol] 7.6 g/dL 6.4-8.2 [facility] Sodium [Moles/Vol] 139 mmol/L 136-145 [facility] WBC (Bld) [#/Vol] 9.3 10*3/uL 4.4-11.0 [facility] Blood erythrocytes count (nu mber/volume)Ordered By: Ifeanyi Ramos on 04-11-2023 RBC (Bld) [#/Vol] 4.66 10*6/uL 4.2-5.4 [facility] Blood hemoglobin measurement (mass/volume)Ordered By: Ifeanyi Ramos on 04-11-2023 Hemoglobin (Bld) [Mass/Vol] 13.2 g/dL 12.0-15.0 [facility] Blood lymphocytes/100 leukoc ytesOrdered By: Ifeanyi Ramos on 04-11-2023 Lymphocytes/100 WBC (Bld) 17.3 % 19-41 [facility] Blood monocytes/100 leukocyt esOrdered By: Ifeanyi Ramos on 04-11-2023 Monocytes/100 WBC (Bld) 7.9 % 0-10 [facility] Blood platelet mean volumeOr dered By: Ifeanyi Ramos on 04-11-2023 Platelet mean volume (Bld) [Entitic vol] 9.7 fL 6.2-12.0 [facility] Clostridium difficile detect ion by polymerase chain reactionOrdered By: Ifeanyi Ramos on 04-11-2023 C. difficile DNA CHARO+probe Ql (Unsp spec) [facility] Determination of erythrocyte mean corpuscular volume (MCV)Ordered By: Ifeanyi Ramos on 04-11-2023 MCV (RBC) [Entitic vol] 87.8 fL 81-99 [facility] Erythrocyte sedimentation ra teOrdered By: Ifeanyi Ramos on 04-11-2023 ESR (Bld) [Velocity] 36 mm/h 0-30 [facility] Gastrointestinal pathogens p bennett CHARO+probe (Stl)Ordered By: Ifeanyi Ramos on 04-11-2023 Enteric Bacteriology Campylobacter species [facility] Hematocrit Auto (Bld) [Volum e fraction]Ordered By: Ifeanyi Ramos on 04-11-2023 Hematocrit (Bld) [Volume fraction] 40.9 % 37-47 [facility] Laboratory - Chemistry and C hemistry - challengeOrdered By: Ifeanyi Ramos on 04-11-2023 ALP [Catalytic activity/Vol] 72 U/L 45-117 [facility] ALT [Catalytic activity/Vol] 29 U/L 13-56 [facility] CO2 [Moles/Vol] 25.0 mmol/L 21.0-32.0 [facility] Globulin (S) [Mass/Vol] 4.2 g/dL 2.2-4.2 [facility] Urea nitrogen/Creatinine [Mass ratio] 12.7 mg/mg 10-20 [facility] Laboratory - Hematology and Cell countsOrdered By: Ifeanyi Ramos on 04-11-2023 Erythrocyte distribution width (RBC) [Entitic vol] 45.2 fL 35.1-43.9 [facility] Erythrocyte distribution width (RBC) [Ratio] 14.1 % 11.6-14.6 [facility] Immature granulocytes/100 WBC (Bld) 0.200 % 0.0-0.9 [facility] Comment on above: IG% - Immature Granu locytes (promyelocytes, myelocytes and metamyelocytes) > 1% indicates that a LEFT SHIFT is Present. MCH (RBC) [Entitic mass] 28.3 pg 27.0-32.0 [facility] Nucleated RBC/100 WBC (Bld) [Ratio] 0 % 0-5 [facility] Lower GI hemoglobin IA Ql (S tl)Ordered By: Ifeanyi Ramos on 04-11-2023 Stool Occult Blood (RANDALL) Positive [facility] MCHC Auto (RBC) [Mass/Vol]Or dered By: Ifeanyi Ramos on 04-11-2023 MCHC (RBC) [Mass/Vol] 32.3 g/dL 32-36 [facility] No Panel InformationOrdered By: Ifeanyi Ramos on 04-11-2023 Estimated GFR (MDRD) Amer 81 mL/min >60 [facility] Comment on above: GFR Calc Estimated GFR (MDRD) Non-Af Amer 67 mL/min >60 [facility] Comment on above: Non- GFR Calc Thyroid Stimulating Hormone (TSH) 4.37 uIU/mL 0.358-3.74 [facility] Ova and parasitesOrdered By: Ifeanyi Ramos on 04-11-2023 Ova and parasites identified LM Nom (Unsp spec) [facility] Platelets bldOrdered By: Emmy Ramos on 04-11-2023 Platelets (Bld) [#/Vol] 269 10*3/uL 150-450 [facility] Serum or plasma C reactive p rotein measurement (mass/volume)Ordered By: Ifeanyi Ramos on 04-11-2023 CRP [Mass/Vol] 49.60 mg/L 0.0-3.0 [facility] Comment on above: C-Reactive Protein ( CRP) provides useful information for thediagnosis, therapy and monitoring of inflammatory processesand associated diseases. For the evaluation of Relative Riskfor Cardiovascular Disease, a High Sensitivity CRP (HSCRP)should be ordered. Serum or plasma albumin ted urement (mass/volume)Ordered By: Ifeanyi Ramos on 04-11-2023 Albumin [Mass/Vol] 3.4 g/dL 3.2-5.0 [facility] Serum or plasma albumin/glob ulin mass ratioOrdered By: Ifeanyi Ramos on 04-11-2023 Albumin/Globulin [Mass ratio] 0.8 {ratio} 0.9-2.4 [facility] Serum or plasma calcium ted urement (mass/volume)Ordered By: Ifeanyi Ramos on 04-11-2023 Calcium [Mass/Vol] 8.8 mg/dL 8.5-10.1 [facility] Serum or plasma creatinine m easurement (mass/volume)Ordered By: Ifeanyi Ramos on 04-11-2023 Creatinine [Mass/Vol] 0.94 mg/dL 0.55-1.02 [facility] Comment on above: The validity of the calculated GFR & GFRAA in patients over 70 years has not been determined. Clinical correlation is essential. Serum or plasma urea nitroge n measurement (mass/volume)Ordered By: Ifeanyi Ramos on 04-11-2023 Urea nitrogen [Mass/Vol] 12 mg/dL 02-19 [facility] Thin prep Papanicolaou smear with manual screeningOrdered By: Ifeanyi Ramos on 04-11-2023 Thin prep Papanicolaou smear with manual screening 32 U/L 15 [facility] Thin prep Papanicolaou smear with manual screening 6 5-15 [facility] No Panel InformationOrdered By: Sigifredo Esquivel on 02-20-2023 D-Dimer Quantitative (PE/DVT) 0.42 FEU/ug/m 0.27-0.49 [facility] Comment on above: NORMAL D-Dimer level (<0.50) indicates no DVT or PE. Fibrinogen 408 mg/dl 44 [facility] Laboratory - Chemistry and C hemistry - challengeOrdered By: Sigifredo Esquivel on 02-19-2023 Free T4 [Mass/Vol] 1.36 ng/dL 0.76-1.46 [facility] No Panel InformationOrdered By: Sigifredo Esquivel on 02-19-2023 Free Triiodothyronine (T3) pg/dL 3.2 pg/mL 2.18-3.98 [facility] Thyroid Stimulating Hormone (TSH) 1.51 uIU/mL 0.358-3.74 [facility] Serum or plasma uric acid me asurement (mass/volume)Ordered By: Sigifredo Esquivel on 02-19-2023 Urate [Mass/Vol] 7.4 mg/dL 2.6-6.0 [facility] Comment on above: The drugs N-Acetylcy steine and Metamizole may falsely depress this assay. Absolute lymphocyte countOrd ered By: HEALTH ASSESSMENT on 01-09-2023 Lymphocytes Auto (Unsp spec) [#/Vol] 1.78 10*3/uL 0.83-4.51 [facility] Absolute reticulocyte countO rdered By: HEALTH ASSESSMENT on 01-09-2023 Reticulocytes (Bld) [#/Vol] 0.00 10*3/uL 0-5 [facility] Basophil percentageOrdered B y: HEALTH ASSESSMENT on 01-09-2023 Basophil percentage 3.4 mg/dL 2.5-4.9 [facility] Bilirubin [Mass/Vol] 0.40 mg/dL 0.20-1.00 [facility] Comment on above: For patients on eltr ombopag therapy, use of Dimension [place] TBIL is not recommended. Chloride [Moles/Vol] 106 mmol/L 98-107 [facility] Cholesterol [Mass/Vol] 182 mg/dL <200 [facility] Comment on above: <200 mg/dL Desirable 200-240 mg/dL Borderline >240 mg/dL High Risk Glucose [Mass/Vol] 105 mg/dL 74-106 [facility] Comment on above: Fasting Glucose resu lt from 100 to 125 mg/dL suggests IMPAIRED HOMEOSTASIS per A.D.A. criteria. LDH [Catalytic activity/Vol] 187 U/L 84-246 [facility] Neutrophils (Bld) [#/Vol] 5.0 10*3/uL 2.0-7.7 [facility] Potassium [Moles/Vol] 4.2 mmol/L 3.5-5.1 [facility] Protein [Mass/Vol] 7.5 g/dL 6.4-8.2 [facility] Sodium [Moles/Vol] 140 mmol/L 136-145 [facility] Triglyceride [Mass/Vol] 152 mg/dL <199 [facility] Comment on above: The drugs N-Acetylcy steine and Metamizole may falsely depress this assay.Serum Triglycerides Reference Interval Normal <150 mg/dL Borderline high 150 - 199 mg/dL High 200 - 499 mg/dL Very High > or = 500 mg/dL WBC (Bld) [#/Vol] 7.6 10*3/uL 4.4-11.0 [facility] Bilirubin Test strip Ql (U)O rdered By: HEALTH ASSESSMENT on 01-09-2023 Bilirubin Ql (U) Negative Negative [facility] Blood erythrocytes count (nu mber/volume)Ordered By: HEALTH ASSESSMENT on 01-09-2023 RBC (Bld) [#/Vol] 4.78 10*6/uL 4.2-5.4 [facility] Blood hemoglobin measurement (mass/volume)Ordered By: HEALTH ASSESSMENT on 01-09-2023 Hemoglobin (Bld) [Mass/Vol] 13.2 g/dL 12.0-15.0 [facility] Blood platelet mean volumeOr dered By: HEALTH ASSESSMENT on 01-09-2023 Platelet mean volume (Bld) [Entitic vol] 9.4 fL 6.2-12.0 [facility] Determination of erythrocyte mean corpuscular volume (MCV)Ordered By: HEALTH ASSESSMENT on 01-09-2023 MCV (RBC) [Entitic vol] 88.9 fL 81-99 [facility] Direct bilirubinOrdered By: HEALTH ASSESSMENT on 01-09-2023 Bilirubin.direct [Mass/Vol] 0.11 mg/dL 0.00-0.30 [facility] Hematocrit Auto (Bld) [Volum e fraction]Ordered By: HEALTH ASSESSMENT on 01-09-2023 Hematocrit (Bld) [Volume fraction] 42.5 % 37-47 [facility] Ketones Test strip Ql (U)Ord ered By: HEALTH ASSESSMENT on 01-09-2023 Ketones Ql (U) Negative Negative [facility] Laboratory - Chemistry and C hemistry - challengeOrdered By: HEALTH ASSESSMENT on 01-09-2023 ALP [Catalytic activity/Vol] 72 U/L 45-117 [facility] ALT [Catalytic activity/Vol] 21 U/L 13-56 [facility] Cholesterol.total/Cho lesterol in HDL [Mass ratio] 2.90 {ratio} [facility] CO2 [Moles/Vol] 28.0 mmol/L 21.0-32.0 [facility] Globulin (S) [Mass/Vol] 3.9 g/dL 2.2-4.2 [facility] Urea nitrogen/Creatinine [Mass ratio] 20.3 mg/mg 10-20 [facility] - Chemistry and C hemistry - challengeOrdered By: Sigifredo Esquivel on 01-09-2023 Free T4 [Mass/Vol] 1.00 ng/dL 0.76-1.46 [facility] Laboratory - Hematology and Cell countsOrdered By: HEALTH ASSESSMENT on 01-09-2023 Erythrocyte distribution width (RBC) [Entitic vol] 46.3 fL 35.1-43.9 [facility] Erythrocyte distribution width (RBC) [Ratio] 14.2 % 11.6-14.6 [facility] MCH (RBC) [Entitic mass] 27.6 pg 27.0-32.0 [facility] Nucleated RBC/100 WBC (Bld) [Ratio] 0 % 0-5 [facility] MCHC Auto (RBC) [Mass/Vol]Or dered By: HEALTH ASSESSMENT on 01-09-2023 MCHC (RBC) [Mass/Vol] 31.1 g/dL 32-36 [facility] Nitrite Test strip Ql (U)Ord ered By: HEALTH ASSESSMENT on 01-09-2023 Nitrite Ql (U) Negative Negative [facility] No Panel InformationOrdered By: HEALTH ASSESSMENT on 01-09-2023 Estimated GFR (MDRD) Amer 82 mL/min >60 [facility] Comment on above: GFR Calc Estimated GFR (MDRD) Non-Af Amer 67 mL/min >60 [facility] Comment on above: Non- GFR Calc No Panel InformationOrdered By: Sigifredo Esquivel on 01-09-2023 Thyroid Stimulating Hormone (TSH) 9.54 uIU/mL 0.358-3.74 [facility] Platelets bldOrdered By: [facility] ASSESSMENT on 01-09-2023 Platelets (Bld) [#/Vol] 292 10*3/uL 150-450 [facility] Protein Test strip Ql (U)Ord ered By: HEALTH ASSESSMENT on 01-09-2023 Protein Ql (U) Negative Negative [facility] Segmented neutrophils/100 WB C Auto (Bld)Ordered By: HEALTH ASSESSMENT on 01-09-2023 Segmented neutrophils/100 WBC (Bld) 65.3 % 47-70 [facility] Serum or plasma albumin ted urement (mass/volume)Ordered By: HEALTH ASSESSMENT on 01-09-2023 Albumin [Mass/Vol] 3.6 g/dL 3.2-5.0 [facility] Serum or plasma albumin/glob ulin mass ratioOrdered By: HEALTH ASSESSMENT on 01-09-2023 Albumin/Globulin [Mass ratio] 0.9 {ratio} 0.9-2.4 [facility] Serum or plasma calcium ted urement (mass/volume)Ordered By: HEALTH ASSESSMENT on 01-09-2023 Calcium [Mass/Vol] 9.6 mg/dL 8.5-10.1 [facility] Serum or plasma cholesterol in HDL measurement (mass/volume)Ordered By: HEALTH ASSESSMENT on 01-09-2023 Cholesterol in HDL [Mass/Vol] 63 mg/dL >40 [facility] Comment on above: The drugs N-Acetylcy steine and Metamizole may falsely depress this assay. Reference Range HDL <40 mg/dL Low HDL Cholesterol HDL >or= 60 mg/dL High HDL Cholesterol Serum or plasma cholesterol in VLDL measurement (mass/volume)Ordered By: HEALTH ASSESSMENT on 01-09-2023 Cholesterol in VLDL [Mass/Vol] 30 mg/dL 5-40 [facility] Serum or plasma creatinine m easurement (mass/volume)Ordered By: HEALTH ASSESSMENT on 01-09-2023 Creatinine [Mass/Vol] 0.94 mg/dL 0.55-1.02 [facility] Comment on above: The validity of the calculated GFR & GFRAA in patients over 70 years has not been determined. Clinical correlation is essential. Serum or plasma low density lipoprotein (LDL) cholesterol measurement (mass/volume)Ordered By: HEALTH ASSESSMENT on 01-09-2023 Cholesterol in LDL [Mass/Vol] 89 mg/dL 0-130 [facility] Serum or plasma urea nitroge n measurement (mass/volume)Ordered By: HEALTH ASSESSMENT on 01-09-2023 Urea nitrogen [Mass/Vol] 19 mg/dL 7-18 [facility] Serum or plasma uric acid me asurement (mass/volume)Ordered By: HEALTH ASSESSMENT on 01-09-2023 Urate [Mass/Vol] 7.2 mg/dL 2.6-6.0 [facility] Comment on above: The drugs N-Acetylcy steine and Metamizole may falsely depress this assay. Thin prep Papanicolaou smear with manual screeningOrdered By: HEALTH ASSESSMENT on 01-09-2023 Thin prep Papanicolaou smear with manual screening 14 U/L 15-37 [facility] Thin prep Papanicolaou smear with manual screening 6 5-15 [facility] Urine blood detectionOrdered By: HEALTH ASSESSMENT on 01-09-2023 RBC Ql (U) 10 /ul Negative [facility] Urine clarityOrdered By: HEA LT ASSESSMENT on 01-09-2023 Clarity (U) Clear Clear [facility] Urine color determinationOrd ered By: HEALTH ASSESSMENT on 01-09-2023 Color (U) Yellow Yellow [facility] Urine glucose detectionOrder ed By: HEALTH ASSESSMENT on 01-09-2023 Glucose Ql (U) Normal mg/dl Normal [facility] Urine leukocyte esterase det ection by dipstickOrdered By: HEALTH ASSESSMENT on 01-09-2023 Leukocyte esterase Test strip Ql (U) Negative Negative [facility] Urine pHOrdered By: HEALTH A SSESSMENT on 01-09-2023 pH (U) 7.0 [pH] 5.0 - 8.0 [facility] Urine specific gravity measu rementOrdered By: HEALTH ASSESSMENT on 01-09-2023 Specific gravity (U) [Rel density] 1.015 1.002-1.03 0 [facility] Urobilinogen Auto test strip Ql (U)Ordered By: HEALTH ASSESSMENT on 01-09-2023 Urobilinogen Ql (U) Normal mg/dl Normal [facility] Clinical Summary: Shahrzad potter 10-26-2021 [facility] OP Visit Invalid Interpretation Code [facility] Work Phone: Comp Panel with Mg Reflexon 04-29-2018 ALT enzyme act/vol 26 U/L Normal 13-69 [facility] Comment on above: Performed By: #### H EMOG, CMP3M, MG3, PHOS3, TSH5 ####[facility] [employer] [place] [address] Calcium mass conc 9.1 mg/dL Normal 8.4-10.4 [facility] Comment on above: Performed By: #### H EMOG, CMP3M, MG3, PHOS3, TSH5 ####[employer] [place] [address] ALP enzyme act/vol 54 U/L Normal 38-126 [facility] Comment on above: Performed By: #### H EMOG, CMP3M, MG3, PHOS3, TSH5 ####[facility] [employer] [place] [address] Anion gap 3 molar conc 7 Normal [facility] Comment on above: Performed By: #### H EMOG, CMP3M, MG3, PHOS3, TSH5 ####[facility] [id number] [place], [place] AST enzyme act/vol 20 U/L Normal 15-46 [facility] Comment on above: Performed By: #### H EMOG, CMP3M, MG3, PHOS3, TSH5 ####[facility] [address] [place], [place] Bilirubin mass conc 0.5 mg/dL Normal 0.2-1.3 [facility] Comment on above: Performed By: #### H EMOG, CMP3M, MG3, PHOS3, TSH5 ####[facility] [address] [place], [place] CO2 molar conc 25 mmol/L Normal 22-30 [facility] Comment on above: Performed By: #### H EMOG, CMP3M, MG3, PHOS3, TSH5 ####[facility] [address] [place], [place] Creatinine mass conc 0.68 mg/dL Normal 0.52-1.25 [facility] Comment on above: Performed By: #### H EMOG, CMP3M, MG3, PHOS3, TSH5 ####[facility] [address] [place], [place] GFR/1.73 sq M predicted among blacks MDRD vol rate/area (S/P/Bld) mL/min/{1.73_m2} Normal >60 [facility] Comment on above: Performed By: #### H EMOG, CMP3M, MG3, PHOS3, TSH5 ####[facility] [address] [place], [place] GFR/1.73 sq M predicted among non-blacks MDRD vol rate/area (S/P/Bld) mL/min/{1.73_m2} Normal >60 [facility] Comment on above: Result Comment: Sour ce- MDRD equation with creatinine calibration to IDMS(NKDEP) eGFR not recommended for drug dose adjustment Performed By: #### H EMOG, CMP3M, MG3, PHOS3, TSH5 ####[facility] [address] [place] [address] Glucose mass conc 106 mg/dL High 70-100 [facility] Comment on above: Performed By: #### H EMOG, CMP3M, MG3, PHOS3, TSH5 ####[facility] [place], [place] Protein mass conc 6.9 g/dL Normal 6.3-8.2 [facility] Comment on above: Performed By: #### H EMOG, CMP3M, MG3, PHOS3, TSH5 ####[address] [place], [place] Urea nitrogen mass conc 17 mg/dL Normal 7-20 [facility] Comment on above: Performed By: #### H EMOG, CMP3M, MG3, PHOS3, TSH5 ####[address] [place], [place] Potassium molar conc 4.3 mmol/L Normal 3.5-5.1 [facility] Comment on above: Performed By: #### H EMOG, CMP3M, MG3, PHOS3, TSH5 ####[address] [place], [place] Sodium molar conc 137 mmol/L Normal 137-145 [facility] Comment on above: Performed By: #### H EMOG, CMP3M, MG3, PHOS3, TSH5 ####[address] [facility] [place] Albumin mass conc 4.0 g/dL Normal 3.5-5.0 [facility] Comment on above: Performed By: #### H EMOG, CMP3M, MG3, PHOS3, TSH5 ####[address] [place] [address] Chloride molar conc 104 mmol/L Normal 98-107 [facility] Comment on above: Performed By: #### H EMOG, CMP3M, MG3, PHOS3, TSH5 ####[address] [place] [address] Discharge Summaryon 04-29-20 Discharge Summary Internal Medicine: M ed TeamDischarge Summary and Transition NotePao Cunningham : 1975 DATE: 04/29/2018 DISCHARGE DATE: 04/29/2018PRIMARY CARE PHYSICIAN: No primary care provider on file.VISIT STATUS: ObservationCODE STATUS: Full CodeDISCHARGE DIAGNOSES:Principal Problem: Pulmonary embolus (HCC)Active Problems: S/P cervical spinal fusion Obesity (BMI 30-39.9) Intercostal muscle strain Deep vein thrombosis (DVT) of lower extremity (HCC)Resolved Problems: * No resolved hospital problems. *HOSPITAL COURSE:Pao Cunningham is a 43 y/o F with past medical history significant forHypothyroidism, and spinal fusion who presented via EMS from [facility] withchest pain and worsening SOB. Patient had a spinal fusion done last weekWe by Dr. Potter of [facility] and was sent home. Patient statedthat around 3 pm Saturday she started having leg pain that later migrated to [facility]. She went to [place] on Saturday where an U/S of her leg wasperformed. A clot was noted on her leg. CTA of her chest also showed possiblePE. She was sent home on Eliquis.On 04/27, she presented with worsening chest pain and SOB to [place]. EKG doneWooster showed NSR, CXR showed no acute process.Troponin was <0.015, WBC was11.9. Other labs were WNL. She was sent to [facility] for further management. Patientstates she had sharp stabbing pain that is diffuse over her chest, pain isworsen with deep breathing. Recently,, patient [place] (8 hour flight). She denies cough, abdominal pain, hematuria.Patient was admitted and was continued on Eliquis 10 mg which was started priorto admission. CTA chest on admission showed acute pulmonary embolism insegmental right lower lobe and possibly within subsegmental left lower lobepulmonary arteries. She received 3 doses of eliquis while inpatient, she is tocontinue on eliquis 10 mg BID for 5 days. Eliquis 10 mg BID will complete on05/05/2018 and at that point patient will take Eliquis 5 mg for 3 months. After 3months, patient will need bilateral lower extremity dopplers as an outpatient.Echocardiogram inpatient was negative for RV strain.Throughout admission, patient had sharp chest pain associated with PE. Pain wastreated with tylenol, flexeril, and oxycodone. Patient was discharged with 3days of oxycodone, lidoderm patch, flexeril, and tylenol for pain.PROCEDURES:CTA ChestEchocardiogramCONSULT ANTS:NoneDISCHARGE MEDICATIONS: Lori Cunningham Medication Instructions GLEN:[id number] Printed on:04/29/18 1616Medication Informationacetaminophen (TYLENOL) 325 MG tabletTake 2 tablets by mouth every 8 hoursapixaban (ELIQUIS) 5 MG TABS tabletTake 2 tablets by mouth 2 times daily for 4 daysapixaban (ELIQUIS) 5 MG TABS tabletTake 1 tablet by mouth 2 times daily Start 5 mg 2 times daily after the 10 mg 2times daily is finishedcyclobenzaprine (FLEXERIL) 10 MG tabletTake 1 tablet by mouth 3 times daily as needed for Muscle spasmslevothyroxine (SYNTHROID) 150 MCG tabletTake 1 tablet by mouth Dailylidocaine (LIDODERM) 5 %Place 1 patch onto the skin daily 12 hours on, 12 hours off.oxyCODONE (ROXICODONE) 5 MG immediate release tabletTake 1 tablet by mouth every 6 hours as needed for Pain for up to 3 days..Earliest Fill Date: 04/29/18ennosides-docusate sodium (SENOKOT-S) 8.6-50 MG tabletTake 2 tablets by mouth 2 times daily as needed for ConstipationDIET: DIET GENERAL;ACTIVITY: No restriction.up with assistSIGNIFICANT DIAGNOSTIC STUDIES:CTA Chest w wo contrastIMPRESSION: ??1. Acute pulmonary embolism in segmental right lower lobe and possiblywithin subsegmental left lower lobe pulmonary arteries.?2. Small focus of subsegmental atelectasis versus infiltrate withinthe medial right upper lobe. Bibasilar atelectasis is present.Echo Complete w doppler w colorCONCLUSIONSSUMMARY:1. Technically difficult study.2. Right ventricle: The cavity size is normal. Wall thickness is normal.Although not well seen, systolic function appears normal.3. Left ventricle: Systolic function is normal. The estimated ejectionfraction is 55%.4. Left atrium: The atrium is normal in size.5. Right atrium: The atrium is normal in size.6. Pericardium, extracardiac: There is no pericardial effusion.7. No significant valve disease.PENDING RESULTS AT TIME OF DISCHARGE:NoneCOMPLEXITY OF FOLLOW UP: [] Moderate Complexity: follow up within 7-14 calendar days (90356) [x] Severe Complexity: follow up within 7 calendar days (92151)FOLLOW UP TESTING, PENDING RESULTS OR REFERRALS AT TRANSITIONAL CARE VISIT: [] Yes [x] NoRECOMMENDED NEXT STEPS:Follow-up with PCP within 1 weeks of dischargeDiscontinue Eliquis 10 mg BID on 05/05/2018Start Eliquis 5 mg BID on 05/05/2018 for 3 monthsNeeds venous lower extremity dopplers in 3 monthsDISPOSITION: HomeFACILITY/HOME CARE AGENCY NAME: NoneFollow up with Dr. Sigifredo Esquivel, patient will call for follow upNotification (telephone encounter) to PCP initiated by dischargingphysician/deleg ate: NoINSTRUCTIONS TO MA/SW: Please call patient on day after discharge (must documentpatient contacted within 2 business days of discharge).FOLLOW UP QUESTIONS FOR MA/SW:1. Did you get medications filled and taking them as instructed from discharge?2. Are you following your discharge instructions from your hospital stay?3. Please confirm patient is scheduled for a follow up appointment within theabove time frame.DISCHARGE TIME: > 30 minutes Normal [facility] Hemogramon 04-29-2018 Erythrocyte distribution width Auto Ratio (RBC) 13.8 % Normal 11.5-14.5 [facility] Comment on above: Performed By: #### H CASI, CMP3M, MG3, PHOS3, TSH5 ####[facility] [place] [address] Hematocrit Auto Volume Fraction (Bld) 38.0 % Normal 35.0-47.0 [facility] Comment on above: Performed By: #### H EMOG, CMP3M, MG3, PHOS3, TSH5 ####[address] [place], [place] Hemoglobin mass conc (Bld) 12.9 g/dL Normal 11.7-16.0 [facility] Comment on above: Performed By: #### H EMOG, CMP3M, MG3, PHOS3, TSH5 ####[address] [place], [place] MCH Auto Entitic mass (RBC) 29.9 pg Normal 26.0-34.0 [facility] Comment on above: Performed By: #### H EMOG, CMP3M, MG3, PHOS3, TSH5 ####[address] MCHC Auto mass conc (RBC) 33.9 % Normal 32.0-36.0 [facility] Comment on above: Performed By: #### H EMOG, CMP3M, MG3, PHOS3, TSH5 ####[address] MCV Auto Entitic volume (RBC) 88.2 fL Normal 79.0-98.0 [facility] Comment on above: Performed By: #### H EMOG, CMP3M, MG3, PHOS3, TSH5 ####[address] [place], [place] Platelet mean volume Auto Entitic volume (Bld) 7.7 fL Normal 7.4-10.4 [facility] Comment on above: Performed By: #### H EMOG, CMP3M, MG3, PHOS3, TSH5 ####[address] [place], [place] Platelets Auto #/vol (Bld) 245 10*3/uL Normal 140-440 [facility] Comment on above: Performed By: #### H EMOG, CMP3M, MG3, PHOS3, TSH5 ####[address] RBC Auto #/vol (Bld) 4.30 10*6/uL Normal 3.80-5.20 [facility] Comment on above: Performed By: #### H EMOG, CMP3M, MG3, PHOS3, TSH5 ####[facility] [address] [place], [place] WBC Auto #/vol (Bld) 10.9 10*3/uL High 3.6-10.7 [facility] Comment on above: Performed By: #### H EMOG, CMP3M, MG3, PHOS3, TSH5 ####[address] [place], [place] Magnesiumon 04-29-2018 Magnesium mass conc 2.1 mg/dL Normal 1.6-2.3 [facility] Comment on above: Performed By: #### H EMOG, CMP3M, MG3, PHOS3, TSH5 ####[address] [place], [place] Phosphoruson 04-29-2018 Phosphate mass conc 3.7 mg/dL Normal 2.5-4.5 [facility] Comment on above: Performed By: #### H EMOG, CMP3M, MG3, PHOS3, TSH5 ####[facility] [address] [place], [place] Basic Metabolic Panelon 04-06 Anion gap 3 molar conc 9 Normal [facility] Comment on above: Performed By: #### B MP3, TROPN, QWAL ####[facility] [address] [place], [place] Calcium mass conc 9.3 mg/dL Normal 8.4-10.[address] [facility] Comment on above: Performed By: #### B MP3, TROPN, QWAL ####[facility] [address] [place], [place] CO2 molar conc 27 mmol/L Normal 22-30 [facility] Comment on above: Performed By: #### B MP3, TROPN, QWAL ####[facility] [address] [place], [place] Creatinine mass conc 0.72 mg/dL Normal 0.52-1.25 [facility] Comment on above: Performed By: #### NOAH YEAGER QWAL ####[facility] [address] [place] [address] GFR/1.73 sq M predicted among blacks MDRD vol rate/area (S/P/Bld) mL/min/{1.73_m2} Normal >60 [facility] Comment on above: Performed By: #### NOAH YEAGER QWAL ####[facility] [address] [place] [address] GFR/1.73 sq M predicted among non-blacks MDRD vol rate/area (S/P/Bld) mL/min/{1.73_m2} Normal >60 [facility] Comment on above: Result Comment: Sour ce- MDRD equation with creatinine calibration to IDMS(NKDEP) eGFR not recommended for drug dose adjustment Performed By: #### NOAH YEAGER QWAL ####[facility] [address] [place], [place] Glucose mass conc 117 mg/dL High 70-100 [facility] Comment on above: Performed By: #### NOAH YEAGER QWAL ####[facility] [address] [place], [place] Urea nitrogen mass conc 17 mg/dL Normal 7-20 [facility] Comment on above: Performed By: #### NOAH YEAGER QWAL ####[facility] [address] [place] [address] Chloride molar conc 102 mmol/L Normal 98-107 [facility] Comment on above: Performed By: #### NOAH YEAGER QAMINATA ####[facility] [address] [place] [address] Potassium molar conc 4.3 mmol/L Normal 3.5-5.1 [facility] Comment on above: Performed By: #### NOAH YEAGER QAMINATA ####[facility] [address] [place] [address] Sodium molar conc 138 mmol/L Normal 137-145 [facility] Comment on above: Performed By: #### B NOAH HAGAN QWAL ####[employer] [address] [place] [address] CTA Chest w/ + w/o Contrasto n 04-28-2018 CTA Chest w/ + w/o Contrast Patient Name: PAO CUNNINGHAM CT Exam Date/Time 04/28/2018 11:20:54 EDT Exam CTA Chest w/ + w/o Contrast Ordering Physician MD DENISE, [facility] Accession Number [id number] CPT4 Codes 95773 (), Q9967 () Reason For Exam CHEST PAIN, ACUTE, PULMONARY EMBOLISM SUSPECTED Report CT ANGIOGRAPHY CHEST: CLINICAL INDICATION: Chest pain TECHNIQUE: Transaxial sequence from apices through the bases during dynamic intravenous infusion of 75 mL of contrast media, injected at a high flow rate. Multiplanar and 3D MIP reconstruction was performed concurrently on an independent viewing workstation. COMPARISON: None. FINDINGS: Exam quality: Good contrast enhancement of the vasculature. Pulmonary Arteries: Filling defects within segmental right lower lobe pulmonary arteries (series 4, image 113.. Small subsegmental left lower lobe pulmonary embolism versus artifact. Aorta: No aortic dissection identified. Lungs: Small focus of subsegmental atelectasis versus infiltrate within the medial right upper lobe. Bibasilar atelectasis is present.. No parenchymal or pleural-based mass. Pleural fluid: None. Heart: No bowing of the intraventricular septum suggest right heart strain.. Mediastinum/Ethel: No mediastinal or hilar mass. Soft tissues chest wall/Neck base: No abnormality identified. Upper abdomen: Within normal limits. Osseous structures: Mild thoracic spondylosis. Partially visualized anterior cervical fusion. IMPRESSION: 1. Acute pulmonary embolism in segmental right lower lobe and possibly within subsegmental left lower lobe pulmonary arteries. 2. Small focus of subsegmental atelectasis versus infiltrate within the medial right upper lobe. Bibasilar atelectasis is present. CRITICAL TEST RESULT COMMUNICATION: I discussed these findings with SCARLETT Lester after multiple pages to the clinical service, including Drs. Arroyo, Nemo and Denise at the time of this interpretation. Report Dictated on Final Dictated: 04/28/2018 12:08 pm Dictating Physician: MD REESE NEIL Signed Date and Time: 04/28/2018 12:45 pm Signed by: MD REESE NEIL Transcribed Date and Time: 04/28/2018 12:33 Normal [facility] Comp Panel with Mg Reflexon 04-28-2018 ALP enzyme act/vol 61 U/L Normal 38-126 [facility] Comment on above: Performed By: #### H EMOG, CMP3M, MG3, PHOS3, TSH5 ####[facility] [address] [place], [place] ALT enzyme act/vol 31 U/L Normal 13-69 [facility] Comment on above: Performed By: #### H EMOG, CMP3M, MG3, PHOS3, TSH5 ####[facility] [address] [place], [place] Calcium mass conc 9.2 mg/dL Normal 8.4-10.[address] [facility] Comment on above: Performed By: #### H EMOG, CMP3M, MG3, PHOS3, TSH5 ####[facility] [employer] [place], [place] Glucose mass conc 119 mg/dL High 70-[address] [facility] Comment on above: Performed By: #### H EMOG, CMP3M, MG3, PHOS3, TSH5 ####[facility] [address] [place], [place] Anion gap 3 molar conc 8 Normal [facility] Comment on above: Performed By: #### H EMOG, CMP3M, MG3, PHOS3, TSH5 ####[facility] [address] [place], [place] AST enzyme act/vol 26 U/L Normal 15-46 [facility] Comment on above: Performed By: #### H EMOG, CMP3M, MG3, PHOS3, TSH5 ####[facility] [address] [place], [place] Bilirubin mass conc 0.7 mg/dL Normal 0.2-1.3 [facility] Comment on above: Performed By: #### H EMOG, CMP3M, MG3, PHOS3, TSH5 ####[facility] [address] [place], [place] CO2 molar conc 27 mmol/L Normal 22-30 [facility] Comment on above: Performed By: #### H EMOG, CMP3M, MG3, PHOS3, TSH5 ####[facility] [address] [place], [place] Creatinine mass conc 0.78 mg/dL Normal 0.52-1.25 [facility] Comment on above: Performed By: #### H EMOLavelle, CMP3M, MG3, PHOS3, TSH5 ####[facility] [address] GFR/1.73 sq M predicted among blacks MDRD vol rate/area (S/P/Bld) mL/min/{1.73_m2} Normal >60 [facility] Comment on above: Performed By: #### H EMOLavelle, CMP3M, MG3, PHOS3, TSH5 ####[facility] [address] [place], [place] GFR/1.73 sq M predicted among non-blacks MDRD vol rate/area (S/P/Bld) mL/min/{1.73_m2} Normal >60 [facility] Comment on above: Result Comment: Sour ce- MDRD equation with creatinine calibration to IDMS(NKDEP) eGFR not recommended for drug dose adjustment Performed By: #### H EMOG, CMP3M, MG3, PHOS3, TSH5 ####[facility] [address] [place], [place] Protein mass conc 7.5 g/dL Normal 6.3-8.2 [facility] Comment on above: Performed By: #### H EMOG, CMP3M, MG3, PHOS3, TSH5 ####[facility] [address] [place] [address] Urea nitrogen mass conc 16 mg/dL Normal 7-20 [facility] Comment on above: Performed By: #### H EMOG, CMP3M, MG3, PHOS3, TSH5 ####[facility] [address] [place] [address] Potassium molar conc 4.3 mmol/L Normal 3.5-5.1 [facility] Comment on above: Performed By: #### H EMOG, CMP3M, MG3, PHOS3, TSH5 ####[facility] [address] [place] [address] Sodium molar conc 138 mmol/L Normal 137-145 [facility] Comment on above: Performed By: #### H EMOG, CMP3M, MG3, PHOS3, TSH5 ####[facility] [address] [place] [address] Albumin mass conc 4.3 g/dL Normal 3.5-5.[address] [facility] Comment on above: Performed By: #### H EMOG, CMP3M, MG3, PHOS3, TSH5 ####[facility] [address] [place] [address] Chloride molar conc 102 mmol/L Normal 98-107 [facility] Comment on above: Performed By: #### H EMOG, CMP3M, MG3, PHOS3, TSH5 ####[facility] [address] [place] [address] Echo Complete w/wo Contrasto n 04-28-2018 Echo Complete w/wo Contrast Patient Name: PAO CUNNINGHAM Ultrasound Exam Date/Time 04/28/2018 14:46:50 EDT Exam Echo Complete w/wo Contrast Ordering Physician MD DENISE, [facility] Accession Number [id number] Reason For Exam PE Report TRANSTHORACIC ECHOCARDIOGRAM PATIENT: Pao Cunningham STUDY DATE: 04/28/2018 : 1975 AGE: 43 HT/WT: 162.6 cm (64 90.7 kg (199.6 in) lb) GENDER: F BP: 124 / 76 LOCATION: [facility] PATIENT Inpatient [facility] STATUS: *ORDERING PHYSICIAN: * Jasmin Kamara *READING PHYSICIAN: * Itz Paredes DO, *DIRECTOR INSTRUMENTATION: * Florina Hartley [facility], [facility] --- INDICATIONS: Pulmonary embolism. --- CONCLUSIONS SUMMARY: 1. Technically difficult study. 2. Right ventricle: The cavity size is normal. Wall thickness is normal. Although not well seen, systolic function appears normal. 3. Left ventricle: Systolic function is normal. The estimated ejection fraction is 55%. 4. Left atrium: The atrium is normal in size. 5. Right atrium: The atrium is normal in size. 6. Pericardium, extracardiac: There is no pericardial effusion. 7. No significant valve disease. --- STUDY DATA: Complete transthoracic echocardiogram. Procedure: Image quality was suboptimal. Intravenous imaging enhancement (Definity) was administered to opacify the chamber. Definity lot #: [id number]. M-mode, complete 2D, complete spectral Doppler, and color flow Doppler images were acquired and archived for permanent storage and are available for subsequent review. Study status: Routine. Patient status: Inpatient. --- FINDINGS LEFT VENTRICLE: Not well visualized. The cavity size is normal. Wall thickness is normal. There is no hypertrophy. Systolic function is normal. The estimated ejection fraction is 55%. Unable to assess LV diastolic function due to suboptimal technical data RIGHT VENTRICLE: Not well visualized. The cavity size is normal. Wall thickness is normal. Although not well seen, systolic function appears normal. Right ventricular systolic pressure is within the normal range. LEFT ATRIUM: Not well visualized. The atrium is normal in size. RIGHT ATRIUM: Not well visualized. The atrium is normal in size. ATRIAL SEPTUM: Poorly visualized. There is no aneurysm. MITRAL VALVE: Not well visualized. Normal (thickness) leaflets. Doppler: There is trivial, less than 1+ regurgitation. Peak gradient (D): 3 mm Hg. AORTIC VALVE: Not well visualized. Trileaflet; normal thickness leaflets. Doppler: There is no stenosis. There is no significant regurgitation. TRICUSPID VALVE: Not well visualized. Structurally normal valve. Doppler: There is no significant regurgitation. PULMONIC VALVE: Not well visualized. Structurally normal valve. Doppler: There is no evidence for stenosis. AORTA: The aorta is not visualized. PERICARDIUM: There is no pericardial effusion. SYSTEMIC VEINS: Not visualized. --- Measurements Left ventricle Value Reference LV ID, ED 4.5 cm 3.9 - 5.3 LV ID, ES 2.9 cm --------- LV PW thickness, ED (H) 1.1 cm 0.6 - 0.9 LV end-diastolic volume, 1-p A4C 67 ml 56 - 104 LV end-systolic volume, 1-p A4C 29 ml 19 - 49 LV end-diastolic volume, 2-p 57 ml 56 - 104 LV end-systolic volume, 2-p 27 ml 19 - 49 LV ejection fraction, 2-p 55 % >=55 LV E/e', lateral 6.7 --------- LV E/e', medial 9.3 --------- LV E/e', average 7.7 --------- Ventricular septum Value Reference IVS thickness, ED (H) 1.1 cm 0.6 - 0.9 LVOT Value Reference LVOT ID, A-P 2.0 cm --------- Aorta Value Reference Ascending aorta ID, A-P, S 2.8 cm --------- Left atrium Value Reference LA volume/bsa, ES, 2-p 14 ml/m2 --------- Mitral valve Value Reference Mitral E-wave peak velocity 0.8 m/sec --------- Mitral A-wave peak velocity 0.6 m/sec --------- Mitral deceleration time 197 ms --------- Mitral peak gradient, D 3 mm Hg --------- Mitral E/A ratio, peak 1.4 --------- Right atrium Value Reference RA area, ES, A4C (L) 9 cm2 10 - 18 Right ventricle Value Reference TAPSE 2.3 cm --------- RV s', lateral, S 0.17 m/sec --------- Legend: (L) and (H) luiza values outside specified reference range. Electronically signed by Itz Paredes DO, FS, [facility] 04/29/2018 15:39 Final Dictated: 04/29/2018 3:39 pm Dictating Physician: DO PAREDES JOSEPH Signed Date and Time: 04/29/2018 3:39 pm Signed by: DO PAREDES JOSEPH Normal [facility] Hemogramon 04-28-2018 Erythrocyte distribution width Auto Ratio (RBC) 14.1 % Normal 11.5-14.5 [facility] Comment on above: Performed By: #### H EMOG ####[id number] [place], [place] Hematocrit Auto Volume Fraction (Bld) 37.7 % Normal 35.0-47.0 [facility] Comment on above: Performed By: #### H EMOG ####[address] Hemoglobin mass conc (Bld) 12.8 g/dL Normal 11.7-16.0 [facility] Comment on above: Performed By: #### H EMOG ####[address] MCH Auto Entitic mass (RBC) 29.9 pg Normal 26.0-34.0 [facility] Comment on above: Performed By: #### H EMOG ####[address] MCHC Auto mass conc (RBC) 34.0 % Normal 32.0-36.0 [facility] Comment on above: Performed By: #### H EMOG ####[address] MCV Auto Entitic volume (RBC) 87.8 fL Normal 79.0-98.0 [facility] Comment on above: Performed By: #### H EMOG ####[address] Platelet mean volume Auto Entitic volume (Bld) 7.4 fL Normal 7.4-10.4 [facility] Comment on above: Performed By: #### H EMOG ####[address] Platelets Auto #/vol (Bld) 216 10*3/uL Normal 140-440 [facility] Comment on above: Performed By: #### H EMOG ####[address] RBC Auto #/vol (Bld) 4.29 10*6/uL Normal 3.80-5.20 [facility] Comment on above: Performed By: #### H EMOG ####[address] WBC Auto #/vol (Bld) 9.5 10*3/uL Normal 3.6-10.7 [facility] Comment on above: Performed By: #### H EMOG ####[address] Erythrocyte distribution width Auto Ratio (RBC) 14.1 % Normal 11.5-14.5 [facility] Comment on above: Performed By: #### H EMOG, CMP3M, MG3, PHOS3, TSH5 ####[address] Hematocrit Auto Volume Fraction (Bld) 39.9 % Normal 35.0-47.0 [facility] Comment on above: Performed By: #### H EMOG, CMP3M, MG3, PHOS3, TSH5 ####[address] Hemoglobin mass conc (Bld) 13.6 g/dL Normal 11.7-16.0 [facility] Comment on above: Performed By: #### H EMOG, CMP3M, MG3, PHOS3, TSH5 ####[address] MCH Auto Entitic mass (RBC) 29.8 pg Normal 26.0-34.0 [facility] Comment on above: Performed By: #### H EMOG, CMP3M, MG3, PHOS3, TSH5 ####[address] MCHC Auto mass conc (RBC) 34.1 % Normal 32.0-36.0 [facility] Comment on above: Performed By: #### H EMOG, CMP3M, MG3, PHOS3, TSH5 ####[address] MCV Auto Entitic volume (RBC) 87.4 fL Normal 79.0-98.0 [facility] Comment on above: Performed By: #### H EMOG, CMP3M, MG3, PHOS3, TSH5 ####[facility] [id number] [place], [place] Platelet mean volume Auto Entitic volume (Bld) 7.4 fL Normal 7.4-10.4 [facility] Comment on above: Performed By: #### H EMOG, CMP3M, MG3, PHOS3, TSH5 ####[facility] [id number] [place], [place] Platelets Auto #/vol (Bld) 237 10*3/uL Normal 140-440 [facility] Comment on above: Performed By: #### H EMOG, CMP3M, MG3, PHOS3, TSH5 ####[facility] [id number] [place], [place] RBC Auto #/vol (Bld) 4.56 10*6/uL Normal 3.80-5.20 [facility] Comment on above: Performed By: #### H EMOG, CMP3M, MG3, PHOS3, TSH5 ####[facility] [id number] [place], [place] WBC Auto #/vol (Bld) 16.7 10*3/uL High 3.6-10.7 [facility] Comment on above: Performed By: #### H EMOG, CMP3M, MG3, PHOS3, TSH5 ####[facility] [id number] [place], [place] Magnesiumon 04-28-2018 Magnesium mass conc 2.1 mg/dL Normal 1.6-2.3 [facility] Comment on above: Performed By: #### H EMOG, CMP3M, MG3, PHOS3, TSH5 ####[facility] [id number] [place], [place] Phosphoruson 04-28-2018 Phosphate mass conc 4.4 mg/dL Normal 2.5-4.5 [facility] Comment on above: Performed By: #### H EMOG, CMP3M, MG3, PHOS3, TSH5 ####[facility] [id number] [place], [place] Thyroid Stim. Hormoneon 04-06 Thyroid Stim. Hormone 0.737 u[IU]/mL Normal 0.46 5-4.68 0 [facility] Comment on above: Performed By: #### H EMOG, CMP3M, MG3, PHOS3, TSH5 ####[id number] [place], [place] Troponin Ion 04-28-2018 Troponin I.cardiac mass conc ng/mL Normal 0.000-0.[address] [place] [address] Comment on above: Result Comment: 0.04 6 - 0.400 = Indeterminate> 0.400 = Consider Myocardial Injury Performed By: #### T ROPN ####[facility] [address] Troponin I.cardiac mass conc ng/mL Normal 0.000-0.[address] [place] [address] Comment on above: Result Comment: 0.04 6 - 0.400 = Indeterminate> 0.400 = Consider Myocardial Injury Performed By: #### B MP3, TROPN, QWAL ####[facility] [address] hCG Qual Pregon 04-28-2018 hCG Qual Preg Negative Normal [facility] Comment on above: Result Comment: REF RANGE:Negative .... < 3Questionable Rpt 48-72 HrPositive ..... > 10 Performed By: #### B MP3, TROPN, QWAL ####[address] Office Visit: Spine Visit- L sided neck painon 02-28-2017 Documentation of current medications (procedure) Done Invalid Interpretation Code [facility] Work Phone: Office Visit: Spine Visit- L sided neck painon 02-25-2017 Documentation of current medications (procedure) Done Invalid Interpretation Code [facility] Work Phone: Office Visit: Spine Visit- N kathy painon 01-17-2017 Documentation of current medications (procedure) Done Invalid Interpretation Code [facility] Work Phone: Office Visit: Spine Visit- N EWon 11-01-2016 Dietary management education, guidance, and counseling (procedure) yes Invalid Interpretation Code [facility] Work Phone: [phone] [facility] Never smoker Invalid Interpretation Code [facility] Work Phone: [phone] Office Visiton 02-08-2015 Smoking cessation education (procedure) yes Invalid Interpretation Code [facility] Work Phone: [phone] Lab Report: ,Urineo n 12-29-2014 Urine, test (choriogonadotropin presence) Negative Invalid Interpretation Code [facility] Work Phone: [phone] Vital Signs Date Time Vital Sign Value Performing Clinician Facility 08-15-2023 14:29-0500 Body height 162.[address] Sigifredo Esquivel Work Phone: [facility] 08-15-2023 14:21-0500 Body mass index (BMI) [Ratio] 40.8 kg/m2 Dr. Sigifredo Esquivel Work Phone: [facility] 08-15-2023 14:21-0500 Body weight 111.[address] Sigifredo Esquivel Work Phone: [facility] 08-15-2023 14:21-0500 Diastolic blood pressure 84 mm[Hg] Dr. Sigifredo Esquivel Work Phone: [facility] 08-15-2023 14:21-0500 Systolic blood pressure 132 mm[Hg] Dr. Sigifredo Esquivel Work Phone: [facility] 07-08-2023 09:35-0500 Body temperature 97.9 [degF] Dr. Sigifredo Esquivel Work Phone: [facility] 07-08-2023 09:35-0500 Diastolic blood pressure 77 mm[Hg] Dr. Sigifredo Esquivel Work Phone: [facility] 07-08-2023 09:35-0500 Heart rate 75 /min Dr. Sigifredo Esquivel Work Phone: [facility] 07-08-2023 09:35-0500 Respiratory rate 16 /min Dr. Sigifredo Esquivel Work Phone: [facility] 07-08-2023 09:35-0500 SaO2% (BldA) [Mass fraction] 97 % Dr. Sigifredo Esquviel Work Phone: [facility] 07-08-2023 09:35-0500 Systolic blood pressure 122 mm[Hg] Dr. Sigifredo Esquivel Work Phone: 1(141)153-880685 [address] 07-08-2023 06:37-0500 Body height 162.[address] Sigifredo Esquivel Work Phone: 2(148)323-600885 [address] 07-08-2023 06:37-0500 Body mass index (BMI) [Ratio] 40.8 kg/m2 Dr. Sigifredo Esquivel Work Phone: 3(345)550-706700 [place] [address] 07-08-2023 06:37-0500 Body weight [address] Sigifredo Esquivel Work Phone: 9(735)576-492900 [place] [address] 06-12-2023 05:52-0500 Body height 162.[address] Sigifredo Esquivel Work Phone: 4(160)092-340400 [place] [address] 06-12-2023 05:52-0500 Body mass index (BMI) [Ratio] 40.8 kg/m2 Dr. Sigifredo Esquivel Work Phone: 9(618)320-973500 [place] [address] 06-12-2023 05:52-0500 Body temperature 97.8 [degF] Dr. Sigifredo Esquivel Work Phone: 8(678)768-461785 [address] 06-12-2023 05:52-0500 Body weight 108.[address] Sigifredo Esquivel Work Phone: 7(976)735-315749 [place] [address] 06-12-2023 05:52-0500 Diastolic blood pressure 83 mm[Hg] Dr. Sigifredo Esquivel Work Phone: 4(782)699-685485 [address] 06-12-2023 05:52-0500 Heart rate 88 /min Dr. Sigifredo Esquivel Work Phone: 6(766)829-534700 [place] [address] 06-12-2023 05:52-0500 Respiratory rate 15 /min Dr. Sigifredo Esquivel Work Phone: 2(086)071-535149 [place] [address] 06-12-2023 05:52-0500 SaO2% (BldA) [Mass fraction] 98 % Dr. Sigifredo Esquivel Work Phone: [facility] 06-12-2023 05:52-0500 Systolic blood pressure 132 mm[Hg] Dr. Sigifredo Esquivel Work Phone: [facility] 06-07-2023 09:33-0400 Body temperature 99 [degF] Dr. Sigifredo Esquivel Work Phone: [facility] 06-07-2023 09:33-0400 Diastolic blood pressure 100 mm[Hg] Dr. Sigifredo Esquivel Work Phone: 1(080)156-890585 [address] 06-07-2023 09:33-0400 Heart rate 74 /min Dr. Sigifredo Esquivel Work Phone: 8(778)465-244085 [address] 06-07-2023 09:33-0400 Respiratory rate 18 /min Dr. Sigifredo Esquivel Work Phone: 6(456)210-326485 [address] 06-07-2023 09:33-0400 SaO2% (BldA) [Mass fraction] 100 % Dr. Sigifredo Esquivel Work Phone: 9(855)436-473985 [address] 06-07-2023 09:33-0400 Systolic blood pressure 138 mm[Hg] Dr. Sigifredo Esquivel Work Phone: 1(398)462-531485 [address] 06-07-2023 08:04-0400 Body mass index (BMI) [Ratio] 40.4 kg/m2 Dr. Sigifredo Esquivel Work Phone: [facility] 06-07-2023 08:04-0400 Body weight [address] Sigifredo Esquivel Work Phone: [facility] 03-15-2023 16:19-0400 Body height 165.[address] Sigifredo Esquivel Work Phone: [facility] 03-15-2023 16:19-0400 Body mass index (BMI) [Ratio] 40.4 kg/m2 Dr. Sigifredo Esquivel Work Phone: [facility] 03-15-2023 16:19-0400 Body weight 110.[address] Sigifredo Esquivel Work Phone: [facility] 03-08-2023 08:58-0400 Body mass index (BMI) [Ratio] 42.5 kg/m2 Dr. Sigifredo Esquivel Work Phone: [facility] 03-08-2023 08:58-0400 Body temperature 96.4 [degF] Dr. Sigifredo Esquivel Work Phone: [facility] 03-08-2023 08:58-0400 Body weight 112.[address] Sigifredo Esquivel Work Phone: [facility] 03-08-2023 08:58-0400 Diastolic blood pressure 100 mm[Hg] Dr. Sigifredo Esquivel Work Phone: [facility] 03-08-2023 08:58-0400 Heart rate 74 /min Dr. Sigifredo Esquivel Work Phone: [facility] 03-08-2023 08:58-0400 Respiratory rate 16 /min Dr. Sigifredo Esquivel Work Phone: [facility] 03-08-2023 08:58-0400 SaO2% (BldA) [Mass fraction] 99 % Dr. Sigifredo Esquivel Work Phone: [facility] 03-08-2023 08:58-0400 Systolic blood pressure 156 mm[Hg] Dr. Sigifredo Esquivel Work Phone: [facility] 11-01-2016 14:35-0400 BMI (Body Mass Index) 36.61 kg/m2 Radha Dossi DC [facility] Work Phone: 11-01-2016 14:35-0400 BP Diastolic 61 mm[Hg] Radha Dossi DC [facility] Work Phone: 11-01-2016 14:35-0400 BP Systolic 135 mm[Hg] Radha Dossi DC [facility] Work Phone: 11-01-2016 14:35-0400 Weight 99.79 kg Radha Dossi DC [facility] Work Phone: 12-02-2014 15:27-0400 Height 165.1 cm Radha Ferro DC [facility] Work Phone: 12-02-2014 15:27-0400 Pulse (Heart Rate) 72 /min Radha Ferro DC [facility] Work Phone: 10-25-2010 17:25-0400 Body Temperature 97.8 [degF] Radha Ferro DC [facility] Work Phone: 10-25-2010 17:25-0400 Pulse Oximetry 99 % Radha Ferro DC [facility] Work Phone: 10-25-2010 17:25-0400 Respiratory Rate 18 /min Radha Ferro DC [facility] Work Phone: NEGATED: Highlighted [id number] 09:59-0400 Body height 165.1 cm Quincy Hernandez OT-C [facility] Work Phone: NEGATED: Highlighted [id number] 09:59-0400 Body height 165 cm Quincy Hernandez OT-C [facility] Work Phone: NEGATED: Highlighted [id number] 09:59-0400 Body mass index (BMI) [Ratio] 39.41 kg/m2 Quincy Hernandez OT-C [facility] Work Phone: NEGATED: Highlighted [id number] 09:59-0400 Body weight 107.05 kg Quincy Hernandez OT-C [facility] Work Phone: NEGATED: Highlighted [id number] 09:59-0400 Body weight 107 kg Quincy Hernandez OT-C [facility] Work Phone: Encounters Encounter Date Encounter Type Care Provider Facility Start: 11-19-2024 End: 11-19-2024 ambulatory Sigifredo Esquivel Facility:[facility] Start: 10-09-2024 End: 10-09-2024 ambulatory Иван Servin Facility:[facility] Start: 09-18-2024 End: 09-18-2024 ambulatory Иван Gareth Facility:[facility] Start: 09-04-2024 End: 09-04-2024 [facility] Start: 09-04-2024 End: 09-04-2024 [facility] Start: 08-17-2024 Encounter for gynecological examination (general) (routine) without abnormal findings [facility] Start: 08-17-2024 End: 08-17-2024 ambulatory Sigifredo Esquivel Facility:[facility] Start: 08-15-2024 End: 08-15-2024 Emergency department patient visit Sigifredo Esquivel Facility:[facility] Start: 08-06-2024 End: 08-06-2024 ambulatory Ping [place] Facility:[facility] Start: 07-06-2024 End: 07-06-2024 ambulatory Sigifredo Esquivel Facility:[facility] Start: 05-13-2024 End: 05-13-2024 ambulatory Sigifredo Esquivel Facility:[facility] Start: 05-08-2024 End: 05-08-2024 ambulatory Ping [place] Facility:[facility] Start: 03-31-2024 End: 03-31-2024 Emergency department patient visit Sigifredo Esquivel Facility:[facility] Start: 03-29-2024 End: 03-29-2024 ambulatory Sigifredo Esquivel Facility:[facility] Start: 03-17-2024 End: 03-17-2024 ambulatory Sigifredo Esquivel Facility:[facility] Start: 02-28-2024 ambulatory Sigifredo Esquivel Facility:[facility] Start: 02-28-2024 End: 02-28-2024 ambulatory Sigifredo Esquivel Facility:[facility] Start: 02-24-2024 End: 02-24-2024 ambulatory Sigifredo Esquivel Facility:[facility] Start: 02-12-2024 End: 02-12-2024 ambulatory Sigifredo Esquivel Facility:[facility] Start: 02-12-2024 End: 02-12-2024 ambulatory Sigifredo Esquivel Facility:[facility] Start: 01-30-2024 End: 01-30-2024 ambulatory Sigifredo Esquivel Facility:[facility] Start: 12-20-2023 End: 12-20-2023 ambulatory Sigifredo Esquivel Facility:[facility] Start: 08-16-2023 End: 08-16-[address] Sigifredo Esquivel Work Phone: [facility] Work Phone: Start: 08-15-2023 End: 08-15-[address] Sigifredo Esquivel Work Phone: [facility] Work Phone: Start: 08-15-2023 End: 08-15-[address] Sigifredo Esquivel Work Phone: [facility]-Laboratory, Specimen Work Phone: Start: 08-15-2023 End: 08-15-[address] Sigifredo Esquivel Work Phone: [facility] Work Phone: Start: 08-08-2023 End: 08-08-[address] Sigifredo Esquivel Work Phone: [facility] Work Phone: Start: 08-02-2023 End: 08-02-[address] Sigifredo Esquivel Work Phone: [facility] Work Phone: Start: 07-25-2023 End: 07-25-[address] Sigifredo Esquivel Work Phone: [facility] Work Phone: Start: 07-25-2023 End: 07-25-[address] Sigifredo Esquivel Work Phone: [facility]-Outpatient Breast Imaging Work Phone: Start: 07-08-2023 Non-patient / Non-visit Dr. Kulwant Esquivel Work Phone: [facility] Start: 07-08-2023 End: 07-08-2023 Admission to same day surgery center Dr. Sigifredo Esquivel Work Phone: [facility] Start: 06-20-2023 End: 06-20-[address] Sigifredo Esquivel Work Phone: [facility] Work Phone: Start: 06-20-2023 End: 06-20-[address] Sigifredo Esquivel Work Phone: [facility]Laboratory Work Phone: Start: 06-18-2023 End: 06-18-[address] Sigifredo Esquivel Work Phone: [facility] Work Phone: Start: 06-12-2023 End: 06-12-[address] Sigifredo Esquivel Work Phone: [facility] Work Phone: Start: 06-07-2023 Non-patient / Non-visit Dr. Kulwant Esquivel Work Phone: [facility] Start: 06-07-2023 End: 06-07-2023 Admission to same day surgery center Dr. Sigifredo Esquivel Work Phone: [facility]-Endoscopy Work Phone: Start: 04-17-2023 End: 04-17-[address] Sigifredo Esquivel Work Phone: [facility] Work Phone: Start: 04-17-2023 End: 04-17-[address] Sigifredo Esquivel Work Phone: [facility]-Sleep Lab Work Phone: Start: 04-11-2023 End: 04-11-[address] Sigifredo Esquivel Work Phone: [facility] Work Phone: Start: 04-11-2023 End: 04-11-[address] [facility] Esquivel [facility] Start: 03-15-2023 End: 03-15-[address] Sigifredo Esquivel Work Phone: [facility] Work Phone: Start: 03-15-2023 End: 03-15-[address] Sigifredo Esquivel Work Phone: [facility]-Sleep Lab Work Phone: Start: 03-15-2023 Non-patient / Non-visit Dr. Kulwant Esquivel Work Phone: [facility] Work Phone: Start: 03-08-2023 End: 03-08-[address] Sigifredo Esquivel Work Phone: [facility]Pulmonary Medicine [facility] Work Phone: Start: 02-20-2023 End: 02-20-[address] [facility] Start: 02-19-2023 End: 02-19-[address] [facility]ivel [facility] Start: 01-09-[address] Sigifredo Krishnamur[facility] Work Phone: [facility] Start: 01-09-2023 End: 01-09-[address] [facility] Esquivel [facility] Start: 07-24-2022 End: 07-24-2022 ambulatory [facility] Work Phone: Start: 07-24-2022 End: 07-24-2022 Patient encounter procedure [facility] Start: 05-18-2022 End: 05-18-2022 Patient encounter procedure [facility]Radiology, [place] Start: 10-23-2021 End: 10-23-[address] Sigifredo Esquivel Work Phone: [facility]-Cardiovascula r Services Start: 10-23-2021 Non-patient / Non-visit Dr. Kulwant Esquivel Work Phone: [facility] Start: 07-19-[address] Sigifredo Esquivel Work Phone: [facility] Start: 07-11-[address] Sigifredo Esquivel Work Phone: [facility]MRI - [facility] Start: 04-29-2018 Patient encounter Jerad Valdez [facility] Procedures Date Procedure Procedure Detail Performing Clinician Start: 07-25-2023 Screening mammography Kelsie Esquivel Work Phone: Start: 04-11-[address] e detection Dr[address] Sigifredo Esquivel Work Phone: Start: 04-11-[address] Bárbara Esquivel Work Phone: Start: 04-11-2023 Measurement of occul t blood in stool specimen using immunoassay Dr. Sigifredo Esquivel Work Phone: Start: 04-11-[address] Sigifredo Esquivel Work Phone: Start: 04-11-[address] [address] parasites identification [address] Sigifredo Esquivel Work Phone: Start: 07-24-2022 Screening mammography Start: 05-18-2022 Plain x-ray of wrist Start: 10-26-2021 End: 10-26-2021 BP scrn no perf at interval [employer] Work Phone: Start: 10-26-2021 End: 10-26-2021 Calc BMI abv up surinder f/u Eleno GUTIERREZ-C Work Phone: Start: 10-26-2021 End: 10-26-2021 Current tobacco non-user cad cap copd pv dm Eleno CEJAC Work Phone: Start: 10-26-2021 End: 10-26-2021 Docrev olive lee by bobbi Johansen [employer] Work Phone: Start: 10-26-2021 History of operative procedure on knee S/P arthroscopic surgery of right knee Quincy Hernandez OT-C Start: 10-26-2021 End: 10-26-2021 Pain doc pos and plan Chance W [facility] [email or web address] Work Phone: Start: 10-26-2021 End: 10-26-2021 Patient encounter procedure Chance W [facility] [employer] Work Phone: Start: 07-18-2021 Screening mammography D tatiana Esquivel Work Phone: Start: 07-11-2021 MRI of joint of lowe r extremity Dr. Sigifredo Esquivel Work Phone: Start: 02-28-2017 End: 02-28-2017 Chiropract [...] 11-01-2016 End: 11-01-2016 Electric stimulation therapy Radha Ferro DC Work Phone: NEGATED: Highlighted rowStart: 10-26-2021 End: 10-26-2021 Documentation of current medications Quincy Ng OT-Jaiden Plan of Treatment Date Care Activity Detail Author Start: 08-15-2023 Liquid based cervical cytology screening [facility] Start: 07-08-2023 Anesthesia anorectal procedure ANESTH ANORECTAL SURGERY [facility] Start: 07-08-2023 Fissurectomy incl sphincterotomy when performed REMOVAL OF ANAL FISSURE [facility] Start: 07-08-2023 Patient discharge [facility] Start: 06-07-2023 Colonoscopy flx dx w/collj spec when pfrmd DIAGNOSTIC COLONOSCOPY [facility] Start: 06-07-2023 Patient discharge [facility] Start: 10-26-2021 End: 10-26-2021 Patient encounter procedure Appointment [facility] Work Phone: Start: 02-28-2017 End: 02-28-2017 Appointment Appointment [facility] Work Phone: Start: 11-28-2016 End: 11-28-2016 Physical Therapy [facility], [address] [place] [address], [id number] [facility] Work Phone: Start: 11-23-2016 End: 11-23-2016 Mri joint of lwr extr w/dye MRI Joint Lower Extremity with Contrast [facility] Work Phone: Start: 11-23-2016 End: 11-23-2016 X-ray exam l-s spine bending X-Ray, Spine, Lumbar, complete with bending views [facility] Work Phone: Start: 11-23-2016 End: 11-23-2016 X-Ray, Hip, unilateral, with pelvis; 2-3 views X-Ray, Hip, unilateral, with pelvis; 2-3 views [facility] Work Phone: Start: 02-08-2015 End: 02-16-2015 Office/outpatient visit, est, level 3 [id number] Ofc Vst, Est Level III [facility] Work Phone: Start: 02-08-2015 End: 02-16-2015 Postop follow-up visit Post Operative Visit [facility] Work Phone: Start: 12-02-2014 End: 12-02-2014 X-ray exam of hand X-Ray, Hand [facility] Work Phone: Colonoscopy [facility] Ova and parasites identified in Unspecified specimen by Light microscopy [facility] Path report.final Dx Spec [facility] Patient referral [facility] Work Phone: [facility] Immunizations Immunization Date Immunization Notes Care Provider Fa cility 06-27-2020 influenza, injectabl e, quadrivalent, preservative free Dr. Sigifredo Esquivel Work Phone: [facility] 06-27-2020 influenza, seasonal, injectable Dr. Sigifredo Esquivel Work Phone: [facility] 06-24-2019 influenza, injectabl e, quadrivalent, preservative free Dr. Sigifredo Esquivel Work Phone: [facility] 06-24-2019 influenza, seasonal, injectable Dr. Sigifredo Esquivel Work Phone: [facility] 03-25-2019 measles, mumps and rubella virus vaccine Dr. Sigifredo Esquivel Work Phone: [facility] 02-03-2019 measles, mumps and rubella virus vaccine Dr. Sigifredo Esquivel Work Phone: [facility] 07-03-2018 influenza, injectabl e, quadrivalent, preservative free Dr. Sigifredo Esquivel Work Phone: [facility] 07-03-2018 influenza, seasonal, injectable Dr. Sigifredo Esquivel Work Phone: [facility] 06-06-2017 influenza, injectabl e, quadrivalent, preservative free Dr. Sigifredo Esquivel Work Phone: [facility] 06-06-2017 influenza, seasonal, injectable Dr. Sigifredo Esquivel Work Phone: [facility] 05-03-2016 influenza, injectabl e, quadrivalent, preservative free Dr. Sigifredo Esquivel Work Phone: [facility] 05-03-2016 influenza, seasonal, injectable Dr. Sigifredo Esquivel Work Phone: [facility] 05-05-2015 influenza, injectabl e, quadrivalent, preservative free Dr. Sigifredo Esquivel Work Phone: [facility] 05-05-2015 influenza, seasonal, injectable Dr. Sigifredo Esquivel Work Phone: [facility] 05-04-2014 influenza, injectabl e, quadrivalent, preservative free Dr. Sigifredo Esquivel Work Phone: [facility] 05-04-2014 influenza, seasonal, injectable Dr. Sigifredo Esquivel Work Phone: [facility] Payers Date Payer Category Payer Self-pay [id number] 2023 Unknown [id number] 2016 Unknown [id number] Unknown Unknown [id number] 2.16.8 40.1.571491.3.579.2.462 Unknown [id number] 2.16.8 40.1.281563.3.579.2.462 Unknown [id number] 2.16.8 40.1.480598.3.579.2.462 Unknown [id number] 2.16.8 40.1.149243.3.579.2.462 Unknown [id number] 2.16.8 40.1.256980.3.579.2.462 Unknown [id number] 2.16.8 40.1.653486.3.579.2.462 Unknown [id number] 2.16.8 40.1.384871.3.579.2.462 Unknown [id number] 2.16.8 40.1.488839.3.579.2.462 Unknown [id number] 2.16.8 40.1.651803.3.579.2.462 Unknown [id number] 2.16.8 40.1.592378.3.579.2.462 Unknown [id number] 2.16.8 40.1.799544.3.579.2.462 Unknown [id number] 2.16.8 40.1.370979.3.579.2.462 Unknown [id number] 2.16.8 40.1.042931.3.579.2.462 Unknown [id number] 2.16.8 40.1.249962.3.579.2.462 Unknown [id number] 2.16.8 40.1.132885.3.579.2.462 Unknown [id number] 2.16.8 40.1.177774.3.579.2.462 Unknown [id number] 2.16.8 40.1.303344.3.579.2.462 Unknown [id number] 2.16.8 40.1.352492.3.579.2.462 Unknown [id number] 2.16.8 40.1.027202.3.579.2.462 Unknown [id number] 2.16.8 40.1.003825.3.579.2.462 Unknown [id number] 2.16.8 40.1.757072.3.579.2.462 Social History Date Type Detail Facility Start: 07-02-2021 End: 08-16-2023 Assertion Unknown if ever smoked [facility] Work Phone: Start: 12-10-2020 Non-smoker [facility] Start: 1975 Sex Assigned At Female [facility] NEGATED: Highlighted rowStart: 10-26-2021 End: 10-26-2021 Employment detail Employment detail [facility] Work Phone: Goals Date Patient Goal Desired Activity /State Mental Status Date Assessment Result Facility 07-08-2023 Cognitive function Voice/Name [facility] Work Phone: 06-07-2023 Cognitive function Voice/Name [facility] Work Phone: Evaluation note Note Date & Type Note Facility Evaluation note There may be informa tion available, but it has not been provided by the sender. [facility] Work Phone: Evaluation note Note Date & Type Note Facility Evaluation note No assessment information availa [facility] Work Phone: Evaluation note Note Date & Type Note Facility Evaluation note Diagnosis Onset Date Daytime hypersomnia acute Obesity chronic [facility] Work Phone: Evaluation note Note Date & Type Note Facility Evaluation note Diagnosis Onset Date Daytime hypersomnia acute Obesity chronic Encounter for screening for malignant neoplasm of colon acute UZMA (obstructive sleep apnea) acute Obesity chronic Anal fissure acute [facility] Work Phone: Evaluation note Note Date & Type Note Facility Evaluation note Diagnosis Onset Date Encounter for screening for malignant neoplasm of colon acute UZMA (obstructive sleep apnea) acute Obesity chronic Anal fissure acute [facility] Work Phone: Evaluation note Note Date & Type Note Facility Evaluation note Diagnosis Onset Date Encounter for screening for malignant neoplasm of colon acute UZMA (obstructive sleep apnea) acute Obesity chronic Anal fissure acute Anal fissure acute Anal fissure acute Encounter for routine gyneco logical examination noneactive Anal fissure acute [facility] Work Phone: Instructions Note Date & Type Note Facility Instructions CompletedPatient advised to follow-up with Primary Care Physician for BMI management. [facility] Work Phone: Summary Purpose Family History No Family History Records Found Relationship Condition Age at Onset Recorded Date/T odalys father Diabetes mellitus Unknown Polyp of colon Unknown Hypothyroidism Unknown mother Loomis's esophagus Unknown sister Hypothyroidism Unknown grandfather Myocardial infarction Unknown Relationship Condition Age at Onset Recorded Date/T odalys father Diabetes mellitus Unknown Polyp of colon Unknown Hypothyroidism Unknown Myocardial infarction Unknown mother Loomis's esophagus Unknown sister Hypothyroidism Unknown grandfather Myocardial infarction Unknown Advance Directives No Advanced Directives Records Found Advance Directive Response Recorded Date/ Time Advance Directives Yes December 22 5 9:20am Living Will No December 10, 2020 12 :54am Power of Cardiovascular Lab Director No December 10, 2020 12:54am Advance Directive Response Recorded Date/ Time Advance Directives Yes December 22 5 8:20am Living Will No December 09, 2020 11 :54pm Power of Cardiovascular Lab Director No December 09, 2020 11:54pm Advance Directive Response Recorded Date/ Time Advance Directives Yes December 22 5 8:20am Living Will No June 24, 2 023 3:03pm Power of Cardiovascular Lab Director No June 24, 2023 3:03pm Chief Complaint Chief Complaint Description Start Date right knee post Right knee a rthroscopic partial medial meniscectomy on 10/18/2021 Preliminary chief co mplaint data, not yet signed by the author as of Chief Complaint and Reason for Visit Chief Complaint PAIN AND SWELLING, R IGHT LOWER LEG SCREENING SOFT TISSUE DISORDER Chief Complaint EORDER- distal ulnar right wrist pain SCREENING Chief Complaint 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 E ORDER Sleep apnea Amb Documentation HYPERSOMNIA Reason for Visit Daytime hypersomnia Obesity Chief Complaint 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 ORDERS E ORDER Sleep apnea Amb Documentation HYPERSOMNIA UZMA; CPAP *DEVICE TAGGED Reason for Visit Daytime hypersomnia Obesity Chief Complaint Sleep apnea Amb Documentation HYPERSOMNIA UZMA; CPAP *DEVICE TAGGED 3 m fu EXCISION OF ANAL TAG E-ORDER Reason for Visit Daytime hypersomnia Obesity Encounter for screening for malignant neoplasm of colon UZMA (obstructive sleep apnea) Obesity Anal fissure Chief Complaint UZMA; CPAP *DEVICE TA GGED 3 m fu EXCISION OF ANAL TAG E-ORDER Anal Fissurectomy Anal Fissurectomy SCREENING Reason for Visit Encounter for screen ing for malignant neoplasm of colon UZMA (obstructive sleep apnea) Obesity Anal fissure Chief Complaint 3 m fu EXCISION OF ANAL TAG E-ORDER Anal Fissurectomy Anal Fissurectomy SCREENING 3 WK S/P ANAL FISSURECTOMY 3 WK S/P ANAL FISSURECTOMY Annual ([employer] HEL[employer]) 1 MONTH S/P ANAL FISSURECTOMY Reason for Visit Encounter for screen ing for malignant neoplasm of colon UZMA (obstructive sleep apnea) Obesity Anal fissure Anal fissure Anal fissure Encounter for routine gynecological examination Anal fissure Additional Source Comments INFORMATION SOURCE (unrecogn ized section and content) DATE CREATED AUTHOR 06/02/2018 [facility] DATE CREATED AUTHOR AUTHOR'S ORGANIZ ATION 11/21/2024 [facility] Reason for Visit (unrecogniz ed section and content) Reason For Visit Description Postop - 1st visit Preliminary reason f or visit data, not yet signed by the author as of right knee post Right knee arthroscopic partial medial meniscectomy on 10/18/2021 Goals (unrecognized section and content) Goals may be documented in a n alternate sectionGoals may be documented in an alternate sectionGoals may be documented in an alternate sectionGoals may be documented in an alternate sectionGoals may be documented in an alternate section Care Teams (unrecognized sec tion and content) Team Status: Active Member Role Status Dates Dr. Sigifredo Esquivel MD Family Provider Active Dr. Sigifredo Esquivel MD Primary Care Provider Active Team Status: Inactive Member Role Status Dates Dr. Sigifredo Esquivel MD Primary Care Provider, Referring P rovider Active Jess Mariano ENDOSCOPY SUPPORT SPECIALIST, ENDOSCOPY SUPPORT SPECIALIST-C Attending Provider Active Team Status: Active Member Role Status Dates Dr. Sigifredo Esquivel MD Primary Care Provider Active [facility] Attending Provider Active Team Status: Inactive Member Role Status Dates Dr. Sigifredo Esquivel MD Primary Care Provide r, Attending Provider, Referring Provider Active Team Status: Active Member Role Status Dates Dr. Sigifredo Esquivel MD Primary Care Provider Active Health Risk Assessment Attending Provider, Referring P rovider Active Team Status: Inactive Member Role Status Dates Dr. Sigifredo Esquivel MD Primary Care Provider Active Jess Mariano ENDOSCOPY SUPPORT SPECIALIST, ENDOSCOPY SUPPORT SPECIALIST-C Attending Provider, Referrin g Provider Active Team Status: Active Member Role Status Dates Dr. Sigifredo Esquivel MD Primary Care Provider Active Jess Mariano ENDOSCOPY SUPPORT SPECIALIST, ENDOSCOPY SUPPORT SPECIALIST-C Attending Provider Active Team Status: Inactive Member Role Status Dates Dr. Sigifredo Esquivel MD Primary Care Provider Active Dr. Ifeanyi Ramos MD Attending Provider Active Team Status: Inactive Member Role Status Dates Dr. Sigifredo Esquivel MD Primary Care Provider Active Jess Mariano NP, ENDOSCOPY SUPPORT SPECIALIST-C Attending Provider Active Team Status: Inactive Member Role Status Dates Dr. Sigifredo Esquivel MD Primary Care Provider, Referring P rovider Active Dr. Eleuterio Diaz MD Attending Provider Active Team Status: Active Member Role Status Dates Dr. Sigifredo Esquivel MD Primary Care Provider, Referring P rovider Active Dr. Иван Barbosa MD Attending Provider, Other Prov ider Active Team Status: Inactive Member Role Status Dates Dr. Sigifredo Esquivel MD Primary Care Provider, Referring P rovider Active Dr. Иван Barbosa MD Attending Provider Active Team Status: Inactive Member Role Status Dates Dr. Sigifredo Esquivel MD Primary Care Provider Active Dr. Ifeanyi Ramos MD Attending Provider, Referri ng Provider Active Team Status: Active Member Role Status Dates Dr. Sigifredo Esquivel MD Primary Care Provider Active Dr. Иван Barbosa MD Attending Provid er, Referring Provider, Other Provider Active Team Status: Inactive Member Role Status Dates Dr. Sigifredo Esquivel MD Primary Care Provider Active Dr. Иван Barbosa MD Attending Provider, Referring Provider Active Team Status: Inactive Member Role Status Dates Dr. Sigifredo Esquivel MD Primary Care Provider, Referring P rovider Active Ping Mcnally ENDOSCOPY SUPPORT SPECIALIST, ENDOSCOPY SUPPORT SPECIALIST-C Attending Provider Active Team Status: Inactive Member Role Status Dates Dr. Sigifredo Esquivel MD Primary Care Provider Active Ping Mcnally ENDOSCOPY SUPPORT SPECIALIST, ENDOSCOPY SUPPORT SPECIALIST-C Attending Provider Active FOR RECORDS PERTAINING TO PATIENTS WHO ARE [...] BE BASED ON THE PRIMARY CLINICAL RECORDS. [employer] provides no warranty or guarantee of the accuracy or completeness of information in this document.
[2025-01-13 12:27] LABS: Free T3 3.6 pg/mL (2.18-3.98); Thyroid Stim Hormone (TSH) 0.087 uIU/mL (0.300-4.200)
== END | disposition home or self-care (01) ==
LOC: LAB 07:28
PROVIDERS: PCP Family Medicine; Referring Provider Family Medicine; Visit Provider Family Medicine
DX: E03.9 Hypothyroidism, unspecified (principal)
CPT/HCPCS: 36415; 84439; 84443; 84481

== ENCOUNTER → 2025-03-11 | Outpatient (CLI) | payer OTHER, SELFPAY ==
--- NOTE | 2025-03-11 17:12 | RAD_ITS ---
PROCEDURE: FOOT MIN 3 VIEWS 03/11/2025 REASON FOR EXAM: PAIN TECHNIQUE: FOOT MIN 3 VIEWS Laterality: Right COMPARISON: No FINDINGS: Posterior and plantar calcaneal spurs. No acute bone or soft tissue pathology. RAD/Foot min 3 Views IMPRESSION: No acute findings. Reading Location: [place] [id number]
--- NOTE | 2025-03-11 17:12 | RAD_ITS ---
PROCEDURE: ANKLE MIN 3 VIEWS 03/11/2025 REASON FOR EXAM: FOOT PAIN TECHNIQUE: ANKLE MIN, right-side 3 VIEWS COMPARISON: No FINDINGS: Posterior and plantar calcaneal spurs. No acute bone or soft tissue pathology. RAD/Ankle min 3 Views IMPRESSION: No acute findings Reading Location: [place] [address]
== END | disposition home or self-care (01) ==
LOC: MTRAD 16:53
PROVIDERS: PCP Family Medicine
DX: S96.911A Strain of unspecified muscle and tendon at ankle and foot level, right foot, initial encounter (principal); X58.XXXA Exposure to other specified factors, initial encounter
CPT/HCPCS: 73610; 73630